=== PATIENT | female | born 1940 | race Caucasian/White ===

== ENCOUNTER → 2017-03-25 | Outpatient (CLI) | payer OTHER, BC ==
--- NOTE | 2017-03-25 13:06 | MAMMOGRAPHY REPORT ---
BILATERAL DIGITAL SCREENING MAMMOGRAM WITH CAD: 03/25/2017 CLINICAL HISTORY: Routine screening. TECHNIQUE: Current study was also evaluated with a Computer Aided Detection (CAD) system. Bilateral CC and MLO and left PICC CCL views were obtained. COMPARISON: Comparison is made to exams dated: 03/20/2016 mammogram, 03/19/2015 mammogram, 03/16/2014 m ammogram, 03/15/2013 mammogram, 03/08/2012 mammogram, and 03/05/2011 mammogram - [facility] nter. BREAST COMPOSITION: The tissue of both breasts is extremely dense, which lowers the sensitivity of m ammography. FINDINGS: No suspicious masses, calcifications, or areas of architectural distortion are noted in ei ther breast. There has been no significant interval change compared to prior exams. Scattered bilater al benign-appearing calcifications are not significantly changed. A biopsy marker clip is again not ed within the left superior breast. IMPRESSION: ACR BI-RADS CATEGORY 2: BENIGN There is no mammographic evidence of malignancy. A 1 year screening mammogram is recommended. The pa tient will receive written notification of the results. Approximately 10% of breast cancers are not detected with mammography. A negative mammographic report should not delay biopsy if a clinically suggestive mass is present. Shell Bell M.D. ah/:03/25/2017 12:04:30 Staff Writer: Alexis PACHECO(R)(M), [facility] letter sent: Normal 1/2 BI-RADS Code: ACR BI-RADS Category 2: Benign
== END | disposition home or self-care (01) ==
LOC: C.MAMM 11:25
PROVIDERS: ATTEND Internal Medicine
DX: Z12.31 Encounter for screening mammogram for malignant neoplasm of breast (principal)

== ENCOUNTER 2018-02-06 02:01 | Emergency (ER) | payer OTHER, BC ==
[~2018-02-06] VITALS: Ht 165.1 cm; Wt 47.9 kg
[2018-02-06 02:05] VITALS: TEMP 36.3; Ht 165.1 cm; Wt 47.9 kg
--- NOTE | 2018-02-06 03:08 | EMERGENCY ROOM VISIT NOTE ---
History Report prepared by Angelic: Zohreh Mesa Under the Supervision of: Dr. Liudmila Andrews D.O. First contact with patient: 02:27 Chief Complaint: FLANK PAIN Stated Complaint: PAIN ON LOWER LEFT SIDE History of Present Illness The patient is a 77 year old female who presents to the Emergency Room with complaints of constant left back pain beginning a couple days ago. The patient believes she has a kidney stone. She has a personal and family history of kidney stones. The patient's last kidney stone was 25 years ago. The patient's pain is better when she does not move. She denies any abdominal pain, nausea, or vomiting. She reports since arriving to the ED her pain as lessened. Source of History: patient Onset: a couple days ago Position: back Quality: other (pain) Timing: constant Associated Symptoms: + back pain, No nausea, No vomiting, No abdominal pain Review of Systems See HPI for pertinent positives & negatives. A total of 10 systems reviewed and were otherwise negative. Past Medical & Surgical Medical Problems: (1) Kidney stone (2) Parkinsons disease Family History Cancer Heart disease Kidney stone Social History Smoking Status: Never Smoker Smokeless Tobacco Use: No Alcohol Use: none Marital Status: Housing Status: lives with significant other Occupation Status: retired Allergies Uncoded Allergies: IVP DYE (Allergy, POSSIBLE ANXIETY, 11/30/13) Physical Exam Vital Signs Date Time Temp Pulse Resp B/P (MAP) Pulse Ox O2 Delivery O2 Flow Rate FiO2 02/06/18 05:19 77 14 167/74 97 Room Air 02/06/18 03:36 76 18 166/65 100 Room Air 02/06/18 02:05 36.3 119 20 151/64 100 Room Air Physical Exam HEENT: Head - normocephalic and atraumatic Pupils are equal, round, and reactive to light. Extraocular eye muscles are intact, and sclera are anicteric. Nose - moist nasal mucosa without discharge. Mouth - moist buccal mucosa. Oropharynx is nonerythematous and there is no tonsillar exudate or edema noted. Neck: Supple; no JVD, nuchal rigidity, cervical lymphadenopathy. Heart: Regular rate and rhythm. There is a normal S1 and S2 with no murmurs, clicks, or gallops appreciated. Lungs: Clear to auscultation bilaterally with no wheezes, rales, or rhonchi. Abdomen: Soft, completely nontender, nondistended, with good bowel sounds. There are no palpable pulsatile masses or hepatosplenomegaly. There is no guarding, rigidity, or rebound noted. Extremities: No evidence of cyanosis, clubbing, or edema. There are easily palpable peripheral pulses. Skin: warm and dry with good turgor and no rashes. Medical Decision & Procedures ER Provider Diagnostic Interpretation: Radiology results as stated below per my review and the radiologist's interpretation: CT ABDOMEN & PELVIS Without contrast: There is a 2 mm stone identified in the left ureterovesical junction causing mild left hydroureter and moderate left hydronephrosis. There are 5 additional stones identified in the left kidney measuring between 2 and 4 mm in size. Water density cyst in the inferior in the inferior left kidney is likely benign. There are approximate 4 nonobstructive stones in the right kidney measuring 2 mm mild right hydronephrosis without evidence of a distal ureteral stone. No bladder stones. Moderate stool in the colon suggests constipation. Ni bowel obstruction or bowel wall thickening. The appendix is not identified. There are scatttered tiny to small to characterize hypodensities in the right hepatic lobe which are nonspecific but presumably represent tiny cysts. Hypodense lesion measuring 7 mm the spleen is nonspecific. Recommend correlation previous studies. Findings either represents a postinfectious or posttraumatic cyst versus hemangioma. If there are risk factors, consider dedicated CT or MRI liver mass protocol study for better evaluation of this lesion in the spleen. Degenerative disc disease at L5-S1. Radiologist: Erica Anguiano MD. Laboratory Results 02/06/18 02:20 Red Blood Count 4.44, Mean Corpuscular Volume 91.0, Mean Corpuscular Hemoglobin 30.4, Mean Corpuscular Hemoglobin Concent 33.4, Mean Platelet Volume 9.9, Neutrophils (%) (Auto) 52.3, Lymphocytes (%) (Auto) 37.5, Monocytes (%) (Auto) 7.8, Eosinophils (%) (Auto) 1.9, Basophils (%) (Auto) 0.4, Neutrophils # (Auto) 3.83, Lymphocytes # (Auto) 2.75, Monocytes # (Auto) 0.57, Eosinophils # (Auto) 0.14, Basophils # (Auto) 0.03 02/06/18 02:20 Test 02/06/18 02:20 02/06/18 02:35 White Blood Count 7.33 K/uL (4.8-10.8) Red Blood Count 4.44 M/uL (4.2-5.4) Hemoglobin 13.5 g/dL (12.0-16.0) Hematocrit 40.4 % (37-47) Mean Corpuscular Volume 91.0 fL (80-100) Mean Corpuscular Hemoglobin 30.4 pg (25-34) Mean Corpuscular Hemoglobin Concent 33.4 g/dl (32-36) Platelet Count 262 K/uL (130-400) Mean Platelet Volume 9.9 fL (7.4-10.4) Neutrophils (%) (Auto) 52.3 % Lymphocytes (%) (Auto) 37.5 % Monocytes (%) (Auto) 7.8 % Eosinophils (%) (Auto) 1.9 % Basophils (%) (Auto) 0.4 % Neutrophils # (Auto) 3.83 K/uL (1.4-6.5) Lymphocytes # (Auto) 2.75 K/uL (1.2-3.4) Monocytes # (Auto) 0.57 K/uL (0.11-0.59) Eosinophils # (Auto) 0.14 K/uL (0-0.5) Basophils # (Auto) 0.03 K/uL (0-0.2) RDW Standard Deviation 43.8 fL (36.4-46.3) RDW Coefficient of Variation 13.1 % (11.5-14.5) Immature Granulocyte % (Auto) 0.1 % Immature Granulocyte # (Auto) 0.01 K/uL (0.00-0.02) Anion Gap 6.0 mmol/L (3-11) Est Creatinine Clear Calc Drug Dose 29.4 ml/min Estimated GFR () 49.3 Estimated GFR (Non- 42.6 BUN/Creatinine Ratio 26.4 (10-20) Calcium Level 8.9 mg/dl (8.5-10.1) Urine Color YELLOW Urine Appearance CLEAR (CLEAR) Urine pH 5.0 (4.5-7.5) Urine Specific [place] 1.012 (1.000-1.030) Urine Protein NEG (NEG) Urine Glucose (UA) NEG (NEG) Urine Ketones NEG (NEG) Urine Occult Blood 3+ (NEG) Urine Nitrite NEG (NEG) Urine Bilirubin NEG (NEG) Urine Urobilinogen NEG (NEG) Urine Leukocyte Esterase TRACE (NEG) Urine WBC (Auto) 1-5 /hpf (0-5) Urine RBC (Auto) 5-10 /hpf (0-4) Urine Hyaline Casts (Auto) 0 /lpf (0-5) Urine Epithelial Cells (Auto) 5-10 /lpf (0-5) Urine Bacteria (Auto) NEG (NEG) Laboratory results per my review. Medications Administered Medications (Trade) Dose Ordered Sig/Vijay Route Start Time Stop Time Status Last Admin Dose Admin Sodium Chloride 500 ml @ 999 mls/hr Q31M STAT IV 02/06/18 03:54 02/06/18 04:24 DC 02/06/18 04:16 999 MLS/HR Procedure NSS IV ED Course 0257: Past medical records reviewed. The patient was evaluated in room B3B. A complete history and physical exam was performed. A urine specimen was obtained and was positive for blood. An IV lock was initiated and labs are drawn as above. The patient went for CT to evaluate for a ureteral stone. Please see above report. 0354: Ordered Sodium Chloride 500 ml @ 999 mls/hr IV. 0406: I updated the patient on the test results. She is still comfortable. She declines wanting anything for pain. 0513: Upon reevaluation, the patient is resting comfortably. I discussed findings and results with her. She verbalized agreement of the treatment plan. The patient was discharged home. Medical Decision The patient is a 77 year old female who presents to the Emergency Room with complaints of constant left back pain beginning a couple days ago. Differential diagnosis includes pyelonephritis, shingles, ureteral colic, musculoskeletal pain. Lab results show: normal white count, normal H & H, BUN 33, creatinine 1.23, normal glucose, urinalysis had significant blood without signs of infection. This is a 77-year-old female patient with a personal history of kidney stones for many years ago. Over the past couple days, there is been significant discomfort in the left flank. Urinalysis was positive for blood. CT scan shows a 2 mm left UVJ stone with multiple other stones in both kidneys. There is some resultant left-sided hydronephrosis. There are multiple other incidental findings on the CT scan including a finding in the spleen as well as significant constipation. I reviewed these findings with the patient and her . I have encouraged to follow-up with her PCP with regards to these incidental findings. As for the kidney stones, the patient was encouraged to follow-up with Dr. Whaley who she is seen in the past. The patient was encouraged to return to the emergency department if she had intractable pain or developed a fever/vomiting. Medication Reconcilliation Current Medication List: was personally reviewed by me Blood Pressure Screening Patient's blood pressure: Elevated blood pressure Blood pressure disposition: Elevated BP felt to be situational Impression Primary Impression: Left ureteral stone Scribe Attestation The scribe's documentation has been prepared under my direction and personally reviewed by me in its entirety. I confirm that the note above accurately reflects all work, treatment, procedures, and medical decision making performed by me. Departure Information Dispostion Home / Self-Care Referrals Jose Colindres MD (PCP) Forms HOME CARE DOCUMENTATION FORM, IMPORTANT VISIT INFORMATION Patient Instructions [facility] Additional Instructions Rest. Take plenty of clear liquids You may want to take a stool softner to prevent constipation. Return to the ER for worsening symptoms Follow up with Urology about kidney stones.
[2018-02-06 03:13] LABS: BASO % 0.4 %; BASO ABS # 0.03 K/uL (0-0.2); EOS % 1.9 %; EOS ABS # 0.14 K/uL (0-0.5); HEMATOCRIT 40.4 % (37-47); HEMOGLOBIN 13.5 g/dL (12.0-16.0); IG# 0.01 K/uL (0.00-0.02); LYMPH % 37.5 %; LYMPH ABS # 2.75 K/uL (1.2-3.4); MEAN CORPUSCULAR HEMOGLOBIN 30.4 pg (25-34); MEAN CORPUSCULAR HGB CONC 33.4 g/dl (32-36); MEAN PLATELET VOLUME 9.9 fL (7.4-10.4); MONO % 7.8 %; MONO ABS # 0.57 K/uL (0.11-0.59); NEUT % 52.3 %; NEUT ABS # 3.83 K/uL (1.4-6.5); PLATELET COUNT 262 K/uL (130-400); RED CELL DISTRIBUTION WIDTH CV 13.1 % (11.5-14.5); RED CELL DISTRIBUTION WIDTH SD 43.8 fL (36.4-46.3); WHITE BLOOD COUNT 7.33 K/uL (4.8-10.8)
[2018-02-06 03:20] LABS: CALCIUM 8.9 mg/dl (8.5-10.1); CREATININE 1.23 mg/dl (0.60-1.20); POTASSIUM 3.8 mmol/L (3.5-5.1)
[2018-02-06] MEDS ORDERED: SODIUM CHLORIDE 0.9% 500ML 500 ML IV STA (03:54)
[2018-02-06 05:19] VITALS: BP 167/74; PULSE 77; O2SAT 97
--- NOTE | 2018-02-06 06:53 | DIAGNOSTIC IMAGING REPORT ---
ABD/PELVIS WITHOUT FOR STONE HISTORY: 77 years-old Female left flank pain acute left flank and left lower quadrant abdominal pain COMPARISON: None available TECHNIQUE: Multiple axial CT images of the abdomen and pelvis were obtained without the use of IV contrast. A dose lowering technique was used consistent with the principals of ORTIZ. FINDINGS: Mild subsegmental bibasilar atelectasis. Small left Bochdalek hernia. No pneumatosis or pneumoperitoneum. Imaged inferior cardiac chambers are mildly enlarged with trace pericardial effusion. Subcentimeter low attenuating lesions throughout the right hepatic lobe measure up to 5 mm, indeterminate on this noncontrast study however statistically favor benign etiology such as cysts or hemangiomas. No intrahepatic biliary ductal dilation. Gallbladder appears normal. Ill-defined low attenuating 8 mm lesion of the posterior mid spleen may reflect a hemangioma. Moderate to severe generalized pancreatic atrophy. Mild thickening of the left adrenal gland suggesting hyperplasia. The right adrenal gland is unremarkable. Low attenuating 1.8 cm lesion of the inferior pole left kidney suggests renal cyst with additional probable renal cysts also noted on the left. There are multiple nonobstructing bilateral nephrolithiasis measuring up to 4 mm within the inferior pole left kidney. There is moderate left-sided hydroureteronephrosis secondary to a 4 x 3 x 3 mm calculus of the left ureterovesicular junction seen on image 328 series 3. Mild prominence of the right renal pelvis and renal collecting system without obstructing calculus identified. Prior hysterectomy. Bladder is unremarkable. No adnexal mass lesions identified. Moderate calcification of the aorta without aneurysm. No bulky adenopathy identified. No bowel obstruction or focal bowel wall thickening identified. There is moderate volume of formed stool throughout the colon. The appendix is not definitively seen. No secondary signs to suggest acute appendicitis. Mild generalized body wall edema. No large volume ascites or significant mesenteric inflammatory changes. The bones appear least mildly demineralized. Severe multilevel facet arthrosis of the lower lumbar spine. IMPRESSION: 1. Moderate left-sided hydroureteronephrosis secondary to a 4 x 3 x 3 mm calculus of the left ureterovesicular junction. Multiple additional nonobstructing bilateral nephrolithiasis. 2. Mild prominence of the right renal pelvis and collecting system without flank hydronephrosis or obstructing right-sided calculus identified. 3. No bowel obstruction or focal bowel wall thickening. 4. Constipation. 5. Prior hysterectomy. 6. Additional findings as above. The above report was generated using voice recognition software. It may contain grammatical, syntax or spelling errors. Electronically signed by: Anil Westbrook M.D. 02/06/2018 6:52 AM Dictated Date/Time: 02/06/2018 6:41 AM
== END 2018-02-06 05:42 | disposition home or self-care (01) ==
LOC: C.EDB 02:03
DX: N13.2 Hydronephrosis with renal and ureteral calculous obstruction (principal); Z87.442 Personal history of urinary calculi; G20 Parkinson's disease; Z80.9 Family history of malignant neoplasm, unspecified; Z84.1 Family history of disorders of kidney and ureter; Z91.041 Radiographic dye allergy status

== ENCOUNTER 2021-03-06 19:52 | Inpatient (IN) ==
[2021-03-06 21:13] LABS: Basophils # (auto) 0.02 K/uL (0-0.2); Basophils % (auto) 0.2 %; Eosinophils # (auto) 0.22 K/uL (0-0.5); Eosinophils % (auto) 2.3 %; Hematocrit (blood only) 33.8 % (37-47); Immature Granulocytes # (auto) 0.03 K/uL (0.00-0.02); Immature Granulocytes % (auto) 0.3 %; Lymphocytes # (auto) 1.16 K/uL (1.2-3.4); Lymphocytes % (auto) 12.2 %; Mean Corpuscular Hemoglobin 30.5 pg (25-34); Mean Corpuscular Hgb Conc 32.5 g/dL (32-36); Mean Corpuscular Volume 93.6 fL (80-100); Mean Platelet Volume 9.4 fL (7.4-10.4); Monocytes # (auto) 0.93 K/uL (0.11-0.59); Monocytes % (auto) 9.8 %; Neutrophils # (auto) 7.15 K/uL (1.4-6.5); Neutrophils % (auto) 75.2 %; Platelet Count 273 K/uL (130-400); RDW Standard Deviation 48.3 fL (36.4-46.3); Red Blood Count 3.61 M/uL (4.2-5.4); White Blood Count 9.51 K/uL (4.8-10.8)
[2021-03-06 21:38] LABS: Alanine Aminotransferase < 6 U/L (12-78); Albumin Level 2.8 gm/dl (3.4-5.0); Aspartate Aminotransferase 18 U/L (15-37); BUN Creatinine Ratio 18.3 (10-20); Blood Urea Nitrogen 44 mg/dl (7-18); Calcium 9.2 mg/dl (8.5-10.1); Carbon Dioxide 23 mmol/L (21-32); Chloride 104 mmol/L (98-107); Est GFR (African American) 21.6 ml/min; Est GFR (Non-African American) 18.7 ml/min; Glucose 178 mg/dl (70-99); Lipase 75 U/L (73-393); Magnesium 2.4 mg/dl (1.8-2.4); Potassium 4.2 mmol/L (3.5-5.1); Sodium 135 mmol/L (136-145)
[2021-03-06 21:49] LABS: Albumin Globulin Ratio 0.7 (0.9-2); Alkaline Phosphatase 106 U/L (45-117); Bilirubin,Total 0.6 mg/dl (0.2-1); Globulin 4.2 gm/dl (2.5-4.0); Troponin I < 0.015 ng/ml (0-0.045)
[2021-03-06] MEDS ORDERED: SODIUM CHLORIDE 0.9% 1000ML 1,000 ML IV ONE (23:34)
[2021-03-06 23:36] LABS: Appearance Urine Clear (Clear); Bilirubin Urine Negative (Negative); Blood Urine 2+ (Negative); Color Urine Yellow; Glucose Urine UA Negative (Negative); Ketones Urine Negative (Negative); Leukocyte Esterase Urine Negative (Negative); Nitrite Urine Negative (Negative); Protein Urine Trace (Negative); Specific Gravity Urine <= 1.005 (1.000-1.030); Urobilinogen Urine Negative (Negative)
[2021-03-06 23:45] LABS: Epithelial Cell Urine 0-5 /lpf (0-5); RBC Urine 0-4 /hpf (0-4); WBC Urine 0-5 /hpf (0-5)
[2021-03-06 23:46] LABS: Bacteria Urine 1+ (Negative)
--- NOTE | 2021-03-07 00:31 | Emergency Department Note ---
Impression & Plan ART (acute kidney injury), Kidney stone on left side, Weakness, Falls frequently ED Provider Note Provider: Bandar Stanford MD DATE OF SERVICE: 03/06/2021 CHIEF COMPLAINT: Lab issues, weakness, falls HISTORY OF PRESENT ILLNESS: Patient is a 80-year-old female with a past medical history significant for Parkinson's disease with DBS placed several months ago presenting here with her today after issues over the last week or 2 with worsening weakness and some falls. Evidently had some outpatient blood work was referred here today due to concern for kidney function. Patient was seen by myself approximally a month ago after a fall and states she is been healing for this but has multiple small falls since that time. Patient denies the use of anticoagulants beyond aspirin. Patient states she is been working with her neurologist at [facility] regarding her DBS and optimization here. Given generalized weakness increasing in some slight confusion at times saw her primary doctor today and had outpatient blood work. Creatinine was some elevated at 2.29 and potassium was 5.2 when she was sent here. Patient states she has been weak but denies fever. Denies nausea or vomiting but having some lower abdominal and some lower back pain she reports. Patient denies pain down the legs. Patient denies respiratory symptoms. who present states she seems to be listing and trending a little bit towards her left side but the patient denies significant weakness or numbness in her extremities or face at this time. REVIEW OF SYSTEMS: A total of 10 review of systems was obtained and negative except as stated above in the HPI. PAST MEDICAL HISTORY: As noted above MEDICATIONS: Reviewed home medication list SOCIAL HISTORY: Lives at home with PHYSICAL EXAM: GENERAL: alert and oriented in no acute distress on stretcher fatigued in appearance Head: normocephalic without obvious swelling or discharge noted on the healed left scalp wound. EYES: No injection, discharge or icterus. PERRL NECK: Trachea midline. Supple. ENT: Mucous membranes pink and moist. LUNGS: Airway patent. No retractions. Breath sounds clear with good air entry bilaterally. HEART: Regular rate and rhythm. No chest wall tenderness ABDOMEN: Soft very slight lower abdominal discomfort but not peritoneal. No guarding. SKIN: Acyanotic, warm, dry, without rashes EXTREMITIES: Without swelling, tenderness or deformity NEUROLOGICAL: No focal deficits moving all extremities. No aphasia. No facial droop or slurred speech. EK bpm normal sinus rhythm. No PVC or PAC. No acute ST segment elevation or depression. QTC 448. CONTINUOUS CARDIAC MONITORING: was ordered and showed a heart rate of 60s to 80s bpm in normal sinus rhythm GCS 15. Patient's laboratory studies and imaging reviewed. Differential includes Infection, dehydration, metabolic abnormality, hypo/ hyperglycemia, electrolyte disturbance, anemia, hypoxia, cardiac sources, intracerebral event, toxicologic, neurologic, traumatic, as well as other pathologies. IMPRESSION/MEDICAL DECISION MAKING: Patient with generalized weakness multiple falls and some lower abdominal and back discomfort. No fevers reported. Afebrile here. Distended leukocytosis urine without evidence of infection on a cath sample. CT scan did not show any acute intracranial abnormality per stat read as below with implanted DBS. Not having significant focal deficits at this point indicative of stroke. Patient's blood work does show a creatinine of 2.39 not far off previous in August of this year to however compare to [facility] medical record labs from December of this year baseline creatinine is 1.3. Kidney stone 5 mm noted on the abdominal skin but no other traumatic injuries noted here on the L-spine. Question of some dehydration component and the stone is causing some ART. Believe she requires emergent intervention at this time overnight but will provide fluid hydration. Leave needs further care here at the hospital given her weakness, falls, the kidney stone and ART and she and her were in agreement. The hospitalist was contacted. Hospitalist aware if worsening renal function urgent urology consultation may be needed. Covid negative. Patient does not appear septic at this time. IV fluids given. DIAGNOSIS: ART, left kidney stone, weakness, falls DISPOSITION: Hospitalist will evaluate Patient was agreeable with this plan. Preliminary Findings Only See Final Report For Complete Findings CT HEAD: No intracranial hemorrhage, mass-effect, or edema. Bilateral deep brain stimulators in place. Paranasal sinuses and mastoid air cells are clear. No fracture. Radiologist: Ruddy Martinez MD Study ready at 22:54 and initial results transmitted at 23:02 Preliminary Findings Only See Final Report For Complete Findings CT ABDOMEN & PELVIS Without Contrast: Stone in the distal left ureter measuring 5 mm. Moderate to severe upstream hydronephrosis. No traumatic injury. Radiologist: Ruddy Martinez MD Study ready at 21:57 and initial results transmitted at 22:30 Preliminary Findings Only See Final Report For Complete Findings CT L SPINE: No fracture or malalignment. Radiologist: Ruddy Martinez MD Study ready at 21:57 and initial results transmitted at 22:31 Past Med/Surg History Social History Smoking Status: Never smoker Preferred Language: Lebanese Feels Safe at Home: Yes Allergies Allergies Allergy/AdvReac Type Severity Reaction Status Date / Time Iodinated Contrast Media AdvReac Severe Anxiety Unverified 03/06/21 21:18 Home Meds Home Medications Medication Instructions Recorded Confirmed amantadine HCl 100 mg PO BID 09/04/20 03/06/21 aspirin 81 mg PO DAILY 09/04/20 03/06/21 biotin 5 mg PO DAILY 09/04/20 03/06/21 carbidopa-levodopa [Rytary] See Rx Instructions .ROUTE .COMPLEX 09/04/20 ketoconazole 1 applic TOPICAL UD 09/04/20 03/06/21 [id number] carb-vit K 1 tab PO DAILY 09/04/20 03/06/21 [Women's Multivitamin] simvastatin 20 mg PO HS 09/04/20 03/06/21 cyclosporine [Restasis] 1 drp OPB BID 01/23/21 03/06/21 furosemide 20 mg PO 3XWK 01/23/21 03/06/21 gabapentin 400 mg PO HS 02/18/21 03/06/21 amoxicillin 2,000 mg PO ONCE PRN 03/06/21 03/06/21 lidocaine 1 patch TOPICAL DAILY PRN 03/06/21 03/06/21 Previous Rx's Medication Instructions Recorded tramadol 50 mg PO Q6H PRN #14 tab 01/23/21 Results & Data (ED) Vital Signs Vital Signs - 24 hr 03/06/21 19:56 03/06/21 20:34 03/06/21 20:35 Temperature 36.3 C L Temperature Source Temporal Artery Scan Pulse Rate 74 71 Pulse Rhythm Regular Pulse Strength Normal Respiratory Rate 20 19 Respiratory Effort / Characteristics Non-Labored Spontaneous Respiratory Depth Normal Respiratory Pattern Regular Blood Pressure 129/60 148/56 H Blood Pressure Mean 83 86 Blood Pressure Position Sitting Pulse Oximetry 97 94 Oxygen Delivery Method Room Air Room Air Sepsis Recent Fever Within 48 Hours No Sepsis New/Unexplained Change in Mental Status No Sepsis Action Taken by Nursing No Action Required 03/06/21 21:00 03/06/21 21:03 03/06/21 22:01 Temperature Temperature Source Pulse Rate 72 71 70 Pulse Rhythm Pulse Strength Respiratory Rate 23 17 16 Respiratory Effort / Characteristics Respiratory Depth Respiratory Pattern Blood Pressure 174/76 H 92/78 L Blood Pressure Mean 108 82 Blood Pressure Position Pulse Oximetry Oxygen Delivery Method Sepsis Recent Fever Within 48 Hours Sepsis New/Unexplained Change in Mental Status Sepsis Action Taken by Nursing 03/06/21 22:30 03/06/21 23:00 Temperature Temperature Source Pulse Rate 72 72 Pulse Rhythm Pulse Strength Respiratory Rate 17 19 Respiratory Effort / Characteristics Respiratory Depth Respiratory Pattern Blood Pressure 132/69 117/50 L Blood Pressure Mean 90 72 Blood Pressure Position Pulse Oximetry Oxygen Delivery Method Sepsis Recent Fever Within 48 Hours Sepsis New/Unexplained Change in Mental Status Sepsis Action Taken by Nursing Laboratory Data Result diagrams: 03/06/21 21:00 03/06/21 21:00 Lab Results 03/06/21 03/06/21 03/06/21 Range/Units 21:00 21:00 21:00 WBC 9.51 (4.8-10.8) K/uL RBC 3.61 L (4.2-5.4) M/uL Hgb 11.0 L (12.0-16.0) g/dL Hct 33.8 L (37-47) % MCV 93.6 (80-100) fL MCH 30.5 (25-34) pg MCHC 32.5 (32-36) g/dL RDW Std Deviation 48.3 H (36.4-46.3) fL RDW Coeff of Ara 14.0 (11.5-14.5) % Plt Count 273 (130-400) K/uL MPV 9.4 (7.4-10.4) fL Immature Gran % (Auto) 0.3 % Neut % (Auto) 75.2 % Lymph % (Auto) 12.2 % [place] % (Auto) 9.8 % Eos % (Auto) 2.3 % Baso % (Auto) 0.2 % Neut # (Auto) 7.15 H (1.4-6.5) K/uL Lymph # (Auto) 1.16 L (1.2-3.4) K/uL [place] # (Auto) 0.93 H (0.11-0.59) K/uL Eos # (Auto) 0.22 (0-0.5) K/uL Baso # (Auto) 0.02 (0-0.2) K/uL Immature Gran # (Auto) 0.03 H (0.00-0.02) K/uL Sodium 135 L (136-145) mmol/L Potassium 4.2 (3.5-5.1) mmol/L Chloride 104 (98-107) mmol/L Carbon Dioxide 23 (21-32) mmol/L Anion Gap 8.0 (3-11) BUN 44 H (7-18) mg/dl Creatinine 2.39 H (0.6-1.2) mg/dl Est Cr Clr Drug Dosing Not Reportable Est GFR ( Amer) 21.6 ml/min Est GFR (Non-Af Amer) 18.7 ml/min BUN/Creatinine Ratio 18.3 (10-20) Glucose 178 H (70-99) mg/dl Calcium 9.2 (8.5-10.1) mg/dl Magnesium 2.4 (1.8-2.4) mg/dl Total Bilirubin 0.6 (0.2-1) mg/dl AST 18 (15-37) U/L ALT < 6 L (12-78) U/L Alkaline Phosphatase 106 (45-117) U/L Troponin I < 0.015 (0-0.045) ng/ml Total Protein 7.0 (6.4-8.2) gm/dl Albumin 2.8 L (3.4-5.0) gm/dl Globulin 4.2 H (2.5-4.0) gm/dl Albumin/Globulin Ratio 0.7 L (0.9-2) Lipase 75 (73-393) U/L TSH 1.080 (0.300-4.500) uIu/ml Urine Color Urine Appearance (Clear) Urine pH (4.5-7.5) Ur Specific [place] (1.000-1.030) Urine Protein (Negative) Urine Glucose (UA) (Negative) Urine Ketones (Negative) Urine Blood (Negative) Urine Nitrite (Negative) Urine Bilirubin (Negative) Urine Urobilinogen (Negative) Ur Leukocyte Esterase (Negative) Urine RBC (0-4) /hpf Urine WBC (0-5) /hpf Ur Epithelial Cells (0-5) /lpf Urine Bacteria (Negative) COVID-19 Eval Order Covid19 at [facility] SARS-CoV-2 (PCR) (Negative) 03/06/21 03/06/21 Range/Units 21:00 23:10 WBC (4.8-10.8) K/uL RBC (4.2-5.4) M/uL Hgb (12.0-16.0) g/dL Hct (37-47) % MCV (80-100) fL MCH (25-34) pg MCHC (32-36) g/dL RDW Std Deviation (36.4-46.3) fL RDW Coeff of Ara (11.5-14.5) % Plt Count (130-400) K/uL MPV (7.4-10.4) fL Immature Gran % (Auto) % Neut % (Auto) % Lymph % (Auto) % [place] % (Auto) % Eos % (Auto) % Baso % (Auto) % Neut # (Auto) (1.4-6.5) K/uL Lymph # (Auto) (1.2-3.4) K/uL [place] # (Auto) (0.11-0.59) K/uL Eos # (Auto) (0-0.5) K/uL Baso # (Auto) (0-0.2) K/uL Immature Gran # (Auto) (0.00-0.02) K/uL Sodium (136-145) mmol/L Potassium (3.5-5.1) mmol/L Chloride (98-107) mmol/L Carbon Dioxide (21-32) mmol/L Anion Gap (3-11) BUN (7-18) mg/dl Creatinine (0.6-1.2) mg/dl Est Cr Clr Drug Dosing Est GFR ( Amer) ml/min Est GFR (Non-Af Amer) ml/min BUN/Creatinine Ratio (10-20) Glucose (70-99) mg/dl Calcium (8.5-10.1) mg/dl Magnesium (1.8-2.4) mg/dl Total Bilirubin (0.2-1) mg/dl AST (15-37) U/L ALT (12-78) U/L Alkaline Phosphatase (45-117) U/L Troponin I (0-0.045) ng/ml Total Protein (6.4-8.2) gm/dl Albumin (3.4-5.0) gm/dl Globulin (2.5-4.0) gm/dl Albumin/Globulin Ratio (0.9-2) Lipase (73-393) U/L TSH (0.300-4.500) uIu/ml Urine Color Yellow Urine Appearance Clear (Clear) Urine pH 5.0 (4.5-7.5) Ur Specific [place] <= 1.005 (1.000-1.030) Urine Protein Trace H (Negative) Urine Glucose (UA) Negative (Negative) Urine Ketones Negative (Negative) Urine Blood 2+ H (Negative) Urine Nitrite Negative (Negative) Urine Bilirubin Negative (Negative) Urine Urobilinogen Negative (Negative) Ur Leukocyte Esterase Negative (Negative) Urine RBC 0-4 (0-4) /hpf Urine WBC 0-5 (0-5) /hpf Ur Epithelial Cells 0-5 (0-5) /lpf Urine Bacteria 1+ H (Negative) COVID-19 Eval Order SARS-CoV-2 (PCR) NEGATIVE (Negative) Administered Medications Sodium Chloride (Nss 1000ml) 1,000 mls @ 999 mls/hr IV .Q1H1M ONE Stop: 03/07/21 00:34 Last Admin: 03/06/21 23:45 Dose: 999 mls/hr Documented by: [id number] Discharge Plan Visit Data Chief Complaint: Abnormal Labs/Diagnostic Testing Stated Complaint: LOSS OF KIDNEY & LIVER FUNCTION-DOC REF ED Provider: Bandar Stanford Discharge Problem: ART (acute kidney injury), Kidney stone on left side, Weakness, Falls frequently Patient Disposition: Being Evaluated by Hospitalist Forms Stand Alone Forms: My [facility] Prescriptions Prescriptions: No Action ketoconazole 2 % shampoo 1 applic TOPICAL UD RF: 0 amantadine HCl 100 mg capsule 100 mg PO BID RF: 0 simvastatin 20 mg tablet 20 mg PO HS RF: 0 aspirin 81 mg Tablet,Chewable 81 mg PO DAILY RF: 0 biotin 5 mg Tablet 5 mg PO DAILY RF: 0 Women's Multivitamin 18 mg iron-400 mcg-500 mg Tablet 1 tab PO DAILY RF: 0 Rytary 48.75-195 mg capsule, extended release See Rx Instructions .ROUTE .COMPLEX RF: 0 gabapentin 400 mg capsule 400 mg PO HS RF: 0 amoxicillin 500 mg capsule 2,000 mg PO ONCE PRN (Reason: moring of dental procedure) RF: 0 lidocaine 4 % adhesive patch,medicated 1 patch topical DAILY PRN (Reason: Pain) RF: 0 furosemide 20 mg tablet 20 mg PO 3XWK RF: 0 Restasis 0.05 % dropperette 1 drp OPB BID RF: 0 tramadol 50 mg tablet 50 mg PO Q6H PRN (Reason: pain) Qty: 14 RF: 0 Referrals Referrals: Jose Colindres MD [Primary Care Provider] -
--- NOTE | 2021-03-07 01:56 | History and Physical Report ---
DATE OF ADMISSION: 03/07/2021 CHIEF COMPLAINT: Weakness, fall. HISTORY OF PRESENT ILLNESS: This is a 80-year-old female with past medical history significant for Parkinson's disease, status post deep brain stimulator in December 2020, history of nonrheumatic gjqoismq-ue-beqoip aortic valve insufficiency, moderate mitral and tricuspid regurgitation, chronic diastolic heart failure, history of orthostatic hypotension, pulmonary hypertension, Raynaud's disease, hyperlipidemia, liver lesions, chronic kidney disease stage IIIA, restless legs syndrome, sicca syndrome, history of kidney stones, who lives with her . Comes because of frequent falls and weakness at home. The patient went to PCP office. Outpatient labs showed creatinine of 2.1, baseline is 1.1. She was advised to come to the hospital. Currently resting comfortably and hemodynamically stable. The patient says lately she is feeling weakness and falling frequently at home. Uses walker at home. Denies any fever, chills, no headache, no blurred visions, no earache, no runny nose, no sore throat, no cough, no dysphagia. Appetite is okay, but she does not eat much. No chest pain, no shortness of breath, no nausea, no abdominal pain, no diarrhea, somewhat constipated. Denies any blood in the stools. Normal bladder movements. She says she has chronic microscopic hematuria. Denies any burning micturition, no swelling in the legs, no rash. Hemodynamically stable. ALLERGIES: IODINATED DIAGNOSTIC AGENTS, SULFA ANTIBIOTICS. PAST MEDICAL HISTORY: As mentioned. PAST SURGICAL HISTORY: Cardiac catheterization, colonoscopy, colonoscopy with biopsy, elbow surgery, laparoscopic lysis of adhesions, partial hysterectomy, cataract surgery. MEDICATIONS: The patient is on amantadine 100 mg p.o. b.i.d., amoxicillin 2 grams p.r.n., aspirin 81 mg p.o. daily, biotin 5 mg p.o. daily, carbidopa/levodopa 48.75/125 mg capsules two in the morning, one in the afternoon, once at night, cyclosporine 1 drop ophthalmic b.i.d., furosemide 20 mg p.o. 3 times a week, gabapentin 400 mg p.o. at bedtime, ketaconazole topical p.r.n., lidocaine 1 patch topically daily p.r.n., multivitamins 1 tablet p.o. daily, simvastatin 20 mg p.o. at bedtime, tramadol 50 mg p.o. q. 6 hours p.r.n. FAMILY HISTORY: Significant for mother has rheumatoid arthritis, GA; father had GA; brother has GA; brother has melanoma; sister has melanoma. SOCIAL HISTORY: . No smoking. Alcohol rarely. No drug use. REVIEW OF SYSTEMS: As per HPI. Rest of the review of systems is negative. PHYSICAL EXAMINATION: GENERAL: The patient is old and frail, not in acute distress. VITAL SIGNS: Temperature 36.3, pulse 73, respiratory rate 16, blood pressure 184/76, and oxygen 94% on room air. HEENT: Pupils equal, round, reactive to light. Oral mucosa dry. NECK: No JVD. No neck masses. CARDIOVASCULAR: S1, S2 heard, regular rate and rhythm, no murmur, no gallop. RESPIRATORY SYSTEM: Normal AP diameter. No accessory muscle use. No wheezing, no crackles. ABDOMEN: Soft, bowel sounds present, nontender. No distention. CENTRAL NERVOUS SYSTEM: Cranial nerves II-XII grossly intact, nonfocal. EXTREMITIES: No edema, no erythema. LABORATORY DATA: WBC 9.5, hemoglobin 11, hematocrit 33.8, platelets 273. Sodium 135, potassium 4.2, chloride 104, bicarbonate 23, BUN 44, creatinine 2.3, serum glucose 178, calcium 9.2, magnesium 2.4, total bilirubin 0.6, AST 18, ALT less than 6, alkaline phosphatase 106. Troponin I less than 0.015. Lipase 75. TSH 1.08. Urinalysis, urine bacteria +1. SARS-CoV-2 PCR negative. IMAGING DATA: Lumbar spine CT, preliminary report, no acute findings. Head CT, preliminary report, no acute findings. Bilateral deep brain stimulators in place. Chest x-ray, no acute findings. CT of the abdomen and pelvis, preliminary report is showing stone in the distal left ureter measuring 5 mm with [id number] upstream hydronephrosis. EKG: Normal sinus rhythm at a rate of 72. No significant change was found. ASSESSMENT AND PLAN: This 80-year-old female presents with ongoing weakness, falls. 1. Ongoing weakness and falls, possibly urinary tract infection: Will place her on Rocephin, gentle fluids. PT and OT. Social service to help with discharge planning. 2. Kidney stone: Left distal ureter stone, 5 mm, with hydronephrosis. This patient has history of kidney stones. Placed on gentle fluids, n.p.o., antibiotics. Urology consult in a.m. for further recommendations. 3. Acute kidney injury on chronic kidney disease stage IIIA: Baseline creatinine of 1.2, presently with creatinine of 2.3. Holding Lasix. Avoid nephrotoxic agents. Getting fluids. Will monitor the labs in the a.m. 4. History of Parkinson syndrome: Deep brain stimulator. On Sinemet and amantadine. PT and OT when stable. 5. History of chronic diastolic congestive heart failure. History of nonrheumatic faujewmr-eu-otgkoq aortic valve insufficiency and moderate mitral and tricuspid regurgitation, on Lasix 20 mg 3 times a week. Also the patient could not higer doses of diuretics because of orthostatic hypotension. But currently the patient is in ART, holding the diuretics and getting gentle fluids. Monitor for any volume overload. 6. Hyperlipidemia: On statin. 7. Restless legs syndrome: On gabapentin. 8. Deep venous thrombosis prophylaxis: Heparin subQ. DISPOSITION: Closely monitor in the med tele. PT and OT prior to discharge. Social service to help with discharge planning. Level 1 full code only if there is a chance of recovery as per my discussion with the patient. MTDD
[2021-03-07] MEDS ORDERED: ACETAMINOPHEN 325 MG TAB PO PRN (02:43)
[2021-03-07] MEDS ORDERED: POLYETHYLENE (MIRALAX) 17 GM PACK PO PRN (02:43)
[2021-03-07] MEDS ORDERED: traMADol HCL 50 MG TABLET PO PRN (02:43)
[2021-03-07] MEDS ORDERED: ONDANSETRON INJ 2 MG/ML 2 ML VIAL IV PRN ×2 (02:43→15:32)
[2021-03-07] MEDS ORDERED: NITROGLYCERIN SL 0.4 MG/TAB TAB SL PRN (02:43)
[2021-03-07] MEDS ORDERED: LIDOCAINE 5% 1 PATCH TD PRN (02:57)
[2021-03-07] MEDS: SODIUM CHLORIDE 0.9% 1000ML 1,000 ML IV SCH ×2 (03:06→17:41)
[2021-03-07] MEDS: cefTRIAXone SODIUM 1,000 MG in DEXTROSE 5% 50 ML IV SCH (03:28)
--- NOTE | 2021-03-07 05:50 | Urology Consultation ---
Date of Consultation March 07, 2021 Assessment & Plan (1) Kidney stone on left side: The patient has been admitted to the hospital service. We will proceed as follows: Provide analgesics Provide antiemetics Hydrate the patient with IV fluids as she has acute kidney injury. Nephrotoxins should also be avoided. Consider adding Flomax for expulsive therapy The patient has been initiated on antibiotics in the form of Rocephin. Urine culture has been sent and is pending. Antibiotics can be adjusted based on culture results Patient is noted to have a 5 mm kidney stone. We will continue the above therapy to see if patient passes a kidney stone on her own. Currently she is pain-free. Due to her acute kidney injury she may require cystoscopic intervention. Remainder of plan as directed by the primary service History of Present Illness Reason for Consultation: Nephrolithiasis Attending Physician: Germán Doty MD History of Present Illness Is a 80-year-old female who was advised to come to the hospital by patient's PCP. Reportedly the patient was having frequent falls and she had some routine blood work checked by her primary care physician's office where she was shown to have a creatinine of 2.1. This was above her baseline levels of 1.1 she was advised to come to the emergency department. Patient reports some generalized weakness. Is not had any fevers, shakes, chills. She denies any dysuria. Does note that she is having some back pain on the left side. She denies any radiation of the pain or any modifying factors. She denies any nausea or vomiting. Patient says that she has had kidney stones in the past but has always been able to pass them successfully on her own. Since admission the patient has had imaging and labs which were independently reviewed.A CBC revealed her white blood cell count was normal at 9.5 hemoglobin and hematocrit 11.0 and 33.8 respectively. Her platelet count was within the normal range. Mr. Profile showed sodium was 135. Potassium was within the normal range. Her BUN and creatinine were elevated at 44 and 2.39. Urinalysis showed 2+ blood, negative for nitrite, negative for leukocyte Estrace, negative for pyuria. A Covid test was performed and was negative. Patient did have a CT scan of the abdomen and pelvis that showed a 5 mm kidney stone in the left ureter resulting in moderate hydronephrosis At the time of my interview the patient was resting comfortably in bed. She said her pain was mostly resolved and she was in no distress. Allergies Allergy/AdvReac Type Severity Reaction Status Date / Time Iodinated Contrast Media AdvReac Severe Anxiety Unverified 03/06/21 21:18 Home Medications Medication Instructions Recorded Confirmed Type amantadine HCl 100 mg PO BID 09/04/20 03/06/21 History aspirin 81 mg PO DAILY 09/04/20 03/06/21 History biotin 5 mg PO DAILY 09/04/20 03/06/21 History carbidopa-levodopa [Rytary] See Rx Instructions .ROUTE .COMPLEX 09/04/20 03/06/21 History ketoconazole 1 applic TOPICAL UD 09/04/20 03/06/21 History qo-pd-oese-FA-Ca carb-vit K 1 tab PO DAILY 09/04/20 03/06/21 History [Women's Multivitamin] simvastatin 20 mg PO HS 09/04/20 03/06/21 History cyclosporine [Restasis] 1 drp OPB BID 01/23/21 03/06/21 History furosemide 20 mg PO 3XWK 01/23/21 03/06/21 History tramadol 50 mg PO Q6H PRN #14 tab 01/23/21 03/06/21 Rx gabapentin 400 mg PO HS 02/18/21 03/06/21 History amoxicillin 2,000 mg PO ONCE PRN 03/06/21 03/06/21 History lidocaine 1 patch TOPICAL DAILY PRN 03/06/21 03/06/21 History Patient History Social History Smoking Status: Never smoker Hx Alcohol Use: No Hx Substance Use: No Preferred Language: Georgian Communication Ability: Effective Hide Tanner Required: No Beliefs That Will Affect Care: None Current Living Situation: Spouse Other Information That Helps Us Care for You: No Feels Safe at Home: Yes Safety Concerns: Feels Safe At This Time Assistive Devices: Glasses and Walker Assistive Devices Comment: Glasses used for reading. Review of Systems Constitutional: + weakness; no fever and no chills Eyes: no diplopia Ear, Nose, Mouth, Throat: no ear pain Respiratory: no cough and no dyspnea Cardiovascular: no chest pain Gastrointestinal: no abdominal pain, no nausea and no vomiting Genitourinary: no dysuria and no hematuria Musculoskeletal: + back pain Integumentary: no rash Neurologic: + generalized weakness Physical Exam Constitutional: no acute distress Eyes: no conjunctival abnormality ENMT: Ears: no hearing impairment Neck: trachea midline Respiratory: normal respiratory effort, lungs clear to auscultation Cardiovascular: Rate/Rhythm: regular rate and regular rhythm Gastrointestinal (Abdomen): Percussion/Palpation: abdomen soft; abdomen nontender Musculoskeletal: No calf tenderness Skin: no rashes, warm and dry Neurologic: moves all extremities Psychiatric: A+Ox3, euthymic affect Genitourinary: + CVA tenderness (Mild CVA tenderness on the left side with percussion.) Results & Data ([facility]) Vital Signs (Past 12 Hours) Vital Signs Temp Pulse Pulse Resp BP BP Pulse Ox 03/07/21 02:10 36.5 C 79 20 119/72 94 03/07/21 01:30 73 20 149/80 H 03/07/21 00:31 73 16 184/76 H 03/07/21 00:01 71 17 167/55 H 03/06/21 23:00 72 19 117/50 L 03/06/21 22:30 72 17 132/69 03/06/21 22:01 70 16 92/78 L 03/06/21 21:03 71 17 174/76 H 03/06/21 21:00 72 23 03/06/21 20:35 94 03/06/21 20:34 71 19 148/56 H 03/06/21 19:56 36.3 C L 74 20 129/60 97 Pulse Ox 03/07/21 02:10 94 03/07/21 01:30 03/07/21 00:31 03/07/21 00:01 03/06/21 23:00 03/06/21 22:30 03/06/21 22:01 03/06/21 21:03 03/06/21 21:00 03/06/21 20:35 03/06/21 20:34 03/06/21 19:56 PG Care Time/CCT Total # of Minutes Spent Total Time Spent with Patient: Total time spent is greater than 50% in coordination of care (as documented) at patient's floor/unit and/or counseling patient: Coding Level of Care Code 99783 Inpt Consult Level 5 Diagnoses Kidney stone on left side N20.0
[2021-03-07 06:39] LABS: Basophils # (auto) 0.01 K/uL (0-0.2); Basophils % (auto) 0.1 %; Eosinophils # (auto) 0.23 K/uL (0-0.5); Eosinophils % (auto) 2.5 %; Hematocrit (blood only) 34.3 % (37-47); Immature Granulocytes # (auto) 0.02 K/uL (0.00-0.02); Immature Granulocytes % (auto) 0.2 %; Lymphocytes # (auto) 1.05 K/uL (1.2-3.4); Lymphocytes % (auto) 11.6 %; Mean Corpuscular Hemoglobin 30.3 pg (25-34); Mean Corpuscular Hgb Conc 32.1 g/dL (32-36); Mean Corpuscular Volume 94.5 fL (80-100); Mean Platelet Volume 9.5 fL (7.4-10.4); Monocytes # (auto) 0.97 K/uL (0.11-0.59); Monocytes % (auto) 10.7 %; Neutrophils % (auto) 74.9 %; Platelet Count 300 K/uL (130-400); RDW Coefficient of Variation 14.1 % (11.5-14.5); RDW Standard Deviation 48.6 fL (36.4-46.3); Red Blood Count 3.63 M/uL (4.2-5.4); White Blood Count 9.08 K/uL (4.8-10.8)
--- NOTE | 2021-03-07 07:06 | CT Scan Report ---
HEAD CT NONCONTRAST CT DOSE: 1277.12 mGycm HISTORY: weakness TECHNIQUE: Multiaxial CT images of the head were performed without the use of intravenous contrast. A utomated exposure control was utilized for this study. A dose lowering technique was utilized adheri ng to the principles of ALARA. Comparison: Head CT 02/18/2021. Findings: The paranasal sinuses and mastoid air cells are clear. The calvarium and skull base are int act. There is no mass, hematoma, midline shift, acute infarct. White matter hypodensity is nonspecifi c but suggestive of microvascular ischemic change. The ventricles and sulci demonstrate mild age-rela kenia involutional changes. Deep neurostimulator devices are again noted. Impression: No significant change compared to the prior study. No acute intracranial abnormality. ACT 112: Negative or not required by law. Electronically signed by: Shankar Hood M.D. 03/07/2021 7:05 AM
[2021-03-07 07:16] LABS: BUN Creatinine Ratio 17.2 (10-20); Calcium 8.5 mg/dl (8.5-10.1); Creatinine Clr Calc Pharmacy 16.8 ml/min; Est GFR (African American) 25.3 ml/min; Est GFR (Non-African American) 21.8 ml/min; Magnesium 2.4 mg/dl (1.8-2.4); Potassium 4.2 mmol/L (3.5-5.1)
--- NOTE | 2021-03-07 07:51 | CT Scan Report ---
CT OF THE ABDOMEN AND PELVIS WITHOUT CONTRAST CLINICAL HISTORY: Fall. Lower abdominal pain. COMPARISON STUDY: CT of the abdomen and pelvis September 04, 2020. TECHNIQUE: Axial images of the abdomen and pelvis were obtained without IV contrast. Images were revi ewed in the axial, sagittal, and coronal planes. Automated exposure control was utilized for the tess dy. A dose lowering technique was utilized adhering to the principles of ALARA. FINDINGS: Left lower lobe opacity favors atelectasis. A 5 mm distal left ureteral calculus results in moderate to severe left hydroureteronephrosis. Infiltration within the left renal sinus is noted. Sm all bilateral renal calculi are present. There are no right ureteral calculi. There is no right hydro nephrosis. A water attenuation lesion within lower pole of the left kidney is suboptimally assessed o n this unenhanced exam but favors a cyst. Unenhanced images of liver, spleen, adrenal glands and panc reas are unremarkable. There is no biliary or pancreatic ductal dilatation. There is no lymphadenopat hy. There is no evidence for a bowel obstruction. No acute fracture or suspicious lesion is identifie d within the visualized skeletal structures. There is a moderate amount of stool within the colon. IMPRESSION: 1. 5 mm distal left ureteral calculus results in moderate to severe left hydroureteronephrosis. 2. Bilateral nephrolithiasis. 3. No acute traumatic findings within the abdomen or pelvis on unenhanced exam. ACT 112: Negative or not required by law. Electronically signed by: Jack Maloney M.D. 03/07/2021 7:49 AM
--- NOTE | 2021-03-07 07:52 | CT Scan Report ---
CT OF THE LUMBAR SPINE CLINICAL HISTORY: falls, back pain COMPARISON STUDY: Lumbar spine CT January 23, 2021. TECHNIQUE: Helical axial images of the lumbar spine were obtained. Sagittal and coronal reconstruct ions were viewed. Automated exposure control was utilized for the study. A dose lowering technique was utilized adhering to the principles of ALARA. FINDINGS: Please note that the CT of the abdomen and pelvis will be reported separately. A 5 mm dista l left ureteral calculus with moderate to severe left hydronephrosis and bilateral nephrolithiasis ar e better depicted on that exam. The sacroiliac joints are intact. There is no acute fracture within t he lumbar spine. Facet joints are intact. Moderate multilevel facet arthrosis is noted. There is mode rate disc space narrowing with osteophytosis at L5-S1. The central canal and neural foramen are subop timally assessed by CT. IMPRESSION: No acute lumbar spine fracture or subluxation. ACT 112: Negative or not required by law. Electronically signed by: Jack Maloney M.D. 03/07/2021 7:51 AM
--- NOTE | 2021-03-07 07:54 | XRay Report ---
XR chest 1V portable CLINICAL HISTORY: weakness COMPARISON STUDY: No previous studies for comparison. FINDINGS: There is no pneumothorax. Trace left pleural effusion is noted. Minimal left basilar opacit y favors atelectasis. Cardiac size is normal. There is no consolidation to suggest pneumonia. Stimula tor device projects over the left hemithorax with leads. IMPRESSION: Trace left pleural effusion with left basilar opacity that favors atelectasis. ACT 112: Negative or not required by law. Electronically signed by: Jack Maloney M.D. 03/07/2021 7:53 AM
[2021-03-07] MEDS: *RESTASIS*ORDER AWAITING ACTION SCH ×2 (08:24→15:17)
[2021-03-07] MEDS: CARBIDOPA/LEVODOPA 25/100MG TAB PO SCH ×4 (08:28→23:41)
[2021-03-07] MEDS ORDERED: NON-FORMULARY MEDICATION (Biotin 5 mg Tablet) PO SCH (09:00)
[2021-03-07] MEDS ORDERED: AMANTADINE HCL 100 MG CAPSULE PO SCH ×2 (09:00)
[2021-03-07] MEDS: MULTIVITAMIN TAB PO SCH (11:05)
[2021-03-07] MEDS: TAMSULOSIN HCL 0.4 MG CAP PO SCH (12:16)
--- NOTE | 2021-03-07 12:31 | Hospitalist Progress Note ---
Date of Service March 07, 2021 Assessment & Plan (1) Weakness: (2) ART (acute kidney injury): (3) Kidney stone on left side: ART on CKD 3 Likely related to ureteral stone Creatinine is 2.1 this morning. Was 2.39 on admission. Continue IV fluids Avoid nephrotoxins Renally dose medications Appreciate urology evaluation for possible cystoscopy/stone management in view of ART with ureteral stone Currently on ceftriaxone. We will follow-up urine culture (4) Falls frequently: History of Parkinson's with deep brain stimulator Hold amantadine for today in view of renal function and dose appropriately. Get PT/OT evaluation (5) Underweight: BMI 17.9 Nutrition consult (6) Chronic diastolic heart failure: History of chronic diastolic congestive heart failure. History of nonrheumatic yjtoeyrh-ip-yraobp aortic valve insufficiency and moderate mitral and tricuspid regurgitation, on Lasix 20 mg 3 times a week. Also the patient could not higher doses of diuretics because of orthostatic hypotension. Admission and Anticipated Discharge Date Admission Date: March 07, 2021 Subjective 80-year-old female with past medical history significant for Parkinson's disease, status post deep brain stimulator in December 2020, history of nonrheumatic qbnzlund-eb-wobnyc aortic valve insufficiency, moderate mitral and tricuspid regurgitation, chronic diastolic heart failure, history of orthostatic hypotension, pulmonary hypertension, Raynaud's disease, hyperlipidemia, liver lesions, chronic kidney disease stage IIIA, restless legs syndrome, sicca syndrome, history of kidney stones, who lives with her and presents with frequent falls and weakness at home Found to have ART on CKD 3 with left distal ureteral stone. Possible UTI Patient seen and examined this morning. Reports some nausea and lower abdominal pain earlier this morning that has resolved Review of Systems Review of Systems: All systems reviewed & are unremarkable except as noted in Subjective Physical Exam Constitutional: + well hydrated; no acute distress Elderly frail woman Eyes: PERRL, conjunctivae normal, anicteric sclerae ENMT: external ear and nose normal, oropharynx normal Respiratory: normal respiratory effort, lungs clear to auscultation Cardiovascular: Rate/Rhythm: regular rate and regular rhythm S1 S2 Gastrointestinal (Abdomen): normal bowel sounds, soft, nontender, no hepatosplenomegaly Musculoskeletal: No pedal edema Neurologic: PERRL, EOMI, accommodation nl, no face palsy, no dysarthria Psychiatric: Orientation: alert, oriented to person and cooperative; + not oriented to place and + not oriented to time Genitourinary: no CVA tenderness Results & Data Results & Data ([facility]) Vital Signs (Past 12 Hours) Vital Signs Temp Pulse Pulse Resp BP BP Pulse Ox 03/07/21 10:22 74 143/59 H 03/07/21 07:17 36.6 C 73 16 176/68 H 97 03/07/21 02:10 36.5 C 79 20 119/72 94 03/07/21 01:30 73 20 149/80 H Pulse Ox 03/07/21 10:22 03/07/21 07:17 03/07/21 02:10 94 03/07/21 01:30 Laboratory Results Abnormal lab results 03/06/21 03/06/21 03/06/21 Range/Units 21:00 21:00 23:10 RBC 3.61 L (4.2-5.4) M/uL Hgb 11.0 L (12.0-16.0) g/dL Hct 33.8 L (37-47) % RDW Std Deviation 48.3 H (36.4-46.3) fL Neut # (Auto) 7.15 H (1.4-6.5) K/uL Lymph # (Auto) 1.16 L (1.2-3.4) K/uL [place] # (Auto) 0.93 H (0.11-0.59) K/uL Immature Gran # (Auto) 0.03 H (0.00-0.02) K/uL Sodium 135 L (136-145) mmol/L Chloride (98-107) mmol/L BUN 44 H (7-18) mg/dl Creatinine 2.39 H (0.6-1.2) mg/dl Glucose 178 H (70-99) mg/dl ALT < 6 L (12-78) U/L Albumin 2.8 L (3.4-5.0) gm/dl Globulin 4.2 H (2.5-4.0) gm/dl Albumin/Globulin Ratio 0.7 L (0.9-2) Urine Protein Trace H (Negative) Urine Blood 2+ H (Negative) Urine Bacteria 1+ H (Negative) 03/07/21 03/07/21 Range/Units 06:07 06:07 RBC 3.63 L (4.2-5.4) M/uL Hgb 11.0 L (12.0-16.0) g/dL Hct 34.3 L (37-47) % RDW Std Deviation 48.6 H (36.4-46.3) fL Neut # (Auto) 6.80 H (1.4-6.5) K/uL Lymph # (Auto) 1.05 L (1.2-3.4) K/uL [place] # (Auto) 0.97 H (0.11-0.59) K/uL Immature Gran # (Auto) (0.00-0.02) K/uL Sodium (136-145) mmol/L Chloride 109 H (98-107) mmol/L BUN 36 H (7-18) mg/dl Creatinine 2.10 H (0.6-1.2) mg/dl Glucose 117 H (70-99) mg/dl ALT (12-78) U/L Albumin (3.4-5.0) gm/dl Globulin (2.5-4.0) gm/dl Albumin/Globulin Ratio (0.9-2) Urine Protein (Negative) Urine Blood (Negative) Urine Bacteria (Negative)
[2021-03-07] MEDS: HEPARIN SOD 5,000 UNIT/0.5 ML VIAL SQ SCH ×2 (12:48→23:43)
[2021-03-07] MEDS: ASPIRIN 81 MG CHEW PO SCH (12:48)
[2021-03-07] MEDS ORDERED: LIDOCAINE 2% 2 ML VIAL/AMP(20MG/ML) INFIL ONE (15:10)
[2021-03-07] MEDS ORDERED: fentaNYL citrate 100 MCG/2 ML VIAL ONE (15:10)
[2021-03-07] MEDS ORDERED: PROPOFOL IV EMULSION 10 MG/ML 20 ML VIAL IV ONE (15:10)
--- NOTE | 2021-03-07 15:12 | Anesthesiology Consultation ---
Date of Service March 07, 2021 Assessment & Plan Chart Review Chart Review: Acceptable Risk for Surgery and Patient NOT seen in Pre Admission Testing Consults Requested none ASA ASA4 Proposed Anesthesia Anesthesia Type: General History Surgery Operation Date: 03/07/21 10:20 Proposed Procedures p Cystoscopy, Left Ureteroscopy Possible Stone Treatment, Stent Placement - C janell Zhao MD Height/Weight Height: 5 ft 5 in Weight: 48.9 kg Allergies Allergy/AdvReac Type Severity Reaction Status Date / Time Iodinated Contrast Media AdvReac Severe Anxiety Unverified 03/06/21 21:18 Medications Home Medications Medication Instructions Recorded Confirmed Last Taken amantadine HCl 100 mg PO BID 09/04/20 03/06/21 09/04/20 aspirin 81 mg PO DAILY 09/04/20 03/06/21 09/03/20 biotin 5 mg PO DAILY 09/04/20 03/06/21 09/03/20 carbidopa-levodopa [Rytary] See Rx Instructions .ROUTE .COMPLEX 09/04/20 03/06/21 09/04/20 ketoconazole 1 applic TOPICAL UD 09/04/20 03/06/21 Unknown aj-si-zyzc-FA-Ca carb-vit K 1 tab PO DAILY 09/04/20 03/06/21 09/03/20 [Women's Multivitamin] simvastatin 20 mg PO HS 09/04/20 03/06/21 09/03/20 cyclosporine [Restasis] 1 drp OPB BID 01/23/21 03/06/21 Unknown furosemide 20 mg PO 3XWK 01/23/21 03/06/21 Unknown tramadol 50 mg PO Q6H PRN #14 tab 01/23/21 03/06/21 Unknown gabapentin 400 mg PO HS 02/18/21 03/06/21 Unknown amoxicillin 2,000 mg PO ONCE PRN 03/06/21 03/06/21 Unknown lidocaine 1 patch TOPICAL DAILY PRN 03/06/21 03/06/21 Unknown Active Medications Generic Name Dose Route Start Last Admin Trade Name Freq PRN Reason Stop Dose Admin Aspirin 81 mg 03/07/21 09:00 03/07/21 12:48 Aspirin 81 Mg Chew PO 04/06/21 08:59 81 mg DAILY DONATO Administration Carbidopa/Levodopa 1.5 tab 03/07/21 09:00 03/07/21 12:49 Carbidopa/Levodopa 25/100mg Tab PO 04/06/21 08:59 1.5 tab QID DONATO Administration Heparin Sodium (Porcine) 5,000 units 03/07/21 09:00 03/07/21 12:48 Heparin Sod 5,000 Unit/0.5 Ml Vial SQ 04/06/21 08:59 5,000 units Q12 DONATO Administration Sodium Chloride 1,000 mls @ 75 mls/hr 03/07/21 03:00 03/07/21 03:06 Nss 1000ml IV 04/06/21 02:59 75 mls/hr .[id number] DONATO Administration Ceftriaxone Sodium 1,000 mg/ 50 mls @ 100 mls/hr 03/07/21 03:00 03/07/21 04:00 Dextrose IV 03/17/21 02:59 Infused Q24H DONATO Infusion Protocol Miscellaneous 1 ea 03/07/21 08:00 03/07/21 08:24 *Restasis*Order Awaiting Action N/A 04/06/21 07:59 Not Given QS DONATO Miscellaneous 1 ea 03/07/21 08:00 03/07/21 08:24 *Ketoconazole 2% Shampoo*Order Awaiting Action N/A 04/06/21 07:59 Not Given QS DONATO Multivitamins 1 tab 03/07/21 09:00 03/07/21 11:05 Multivitamin Tab PO 04/06/21 08:59 Not Given DAILY DONATO Tamsulosin HCl 0.4 mg 03/07/21 09:00 03/07/21 12:16 Tamsulosin Hcl 0.4 Mg Cap PO 04/06/21 08:59 Not Given QAM DONATO NPO Date Last Intake of Fluids: 03/06/21 Time Last Intake of Fluids: 23:59 Date Last Intake of Solids: 03/06/21 Time Last Intake of Solids: 23:59 Exercise / Class Metabolic Activity III < 4 Walking/Shop/Light housework Past Anesthesia History No Hx of Anesthesia Complications and No Family Hx of Anesthesia Complications History of PONV No Hx of PONV and No Hx of Motion Sickness Social History Smoking Status: Never smoker Hx Alcohol Use: No Hx Substance Use: No Physical Exam Vital Signs Last Vital Signs Temp 36.5 C 03/07/21 14:45 Pulse 73 03/07/21 14:45 Resp 16 06/10/21 14:45 BP 153/64 H 03/07/21 14:45 Pulse Ox 98 03/07/21 14:45 Testing Laboratory Results 03/07/21 06:07 03/07/21 06:07 Urine Color Yellow 03/06/21 23:10 Urine Appearance Clear (Clear) 03/06/21 23:10 Urine pH 5.0 (4.5-7.5) 03/06/21 23:10 Ur Specific [place] <= 1.005 (1.000-1.030) 03/06/21 23:10 Urine Protein Trace (Negative) H 03/06/21 23:10 Urine Glucose (UA) Negative (Negative) 03/06/21 23:10 Urine Ketones Negative (Negative) 03/06/21 23:10 Urine Nitrite Negative (Negative) 03/06/21 23:10 Ur Leukocyte Esterase Negative (Negative) 03/06/21 23:10 Urine RBC 0-4 /hpf (0-4) 03/06/21 23:10 Urine WBC 0-5 /hpf (0-5) 03/06/21 23:10 Ur Epithelial Cells 0-5 /lpf (0-5) 03/06/21 23:10 Electrocardiogram Date: 03/06/21 Findings: + NSR @ (at 73) and + LVH Chest X-Ray Date: 03/06/21 Findings: + atelectasis (left basilar) and + pleural effusion (trace left)
--- NOTE | 2021-03-07 15:26 | History & Physical Bridge Note ---
Date of Service March 07, 2021 History & Physical Bridge Note I have examined the patient, reviewed the History & Physical and in the interval since the performance of the History & Physical I have noted the following changes of clinical significance: no changes noted
[2021-03-07] MEDS ORDERED: LABETALOL HCL IV 5 MG/ML 20ML IV PRN (15:32)
[2021-03-07] MEDS ORDERED: PROMETHAZINE HCL 12.5 MG in SODIUM CHLORIDE 0.9% 50 ML IV PRN (15:32)
[2021-03-07] MEDS ORDERED: ePHEDrine sulfate 50 MG/ML AMP IV PRN (15:32)
[2021-03-07] MEDS ORDERED: ATROPINE SULFATE 0.1 MG/ML 10ML SYR IV PRN (15:32)
[2021-03-07] MEDS ORDERED: NALOXONE HCL 0.4 MG/1 ML VIAL/CARP IV PRN (15:32)
[2021-03-07] MEDS ORDERED: FLUMAZENIL 0.1 MG/1 ML 10 ML VIAL IV PRN (15:32)
[2021-03-07] MEDS ORDERED: fentaNYL citrate 100 MCG/2 ML VIAL IV PRN (15:32)
[2021-03-07] MEDS ORDERED: DIATRIZOATE MEGLUMINE 30% 100ML VIAL INSTIL ONE (16:27)
--- NOTE | 2021-03-07 16:30 | Operative Report ---
PG Post Operative Report Pre & Post Diagnosis Operation Date: 03/07/21 10:20 Pre-Op Diagnosis: Left stone Post-Op Diagnosis: Left stone I identified the patient and participated in the time-out.: Yes Procedure Operation Date: 03/07/21 10:20 Actual Procedures p Cystoscopy, Left Ureteroscopy, aspiration, retrograde pyelogram, and left Stent Placement(Left) - Ruben Camp DO Surgeon Ruben Camp, II, DO Greenhouse Laborer None Estimated Blood Loss 1 Findings Consistent with Post-Op Diagnosis Stent placed in good position. Severe tortuosity of ureter with severe hydronephrosis. Specimens None Drains 6 Fr x 24 Anesthesia Type MAC Complications none Disposition Disposition: Recovery Room Indications Patient with obstruction. Risks and benefits discussed at length. Description of Procedure Patient was consented and brought back to the operating room. Patient was placed under anesthesia in the supine position and moved to the dorsal lithotomy position. Patient was prepped and draped in the regular sterile fashion. A time out was completed. A 30degree Cystoscope was placed into the bladder and the entire bladder was examined. The UO's were identified. The UO was cannulized with a catheter, urine was aspirated, and a retrograde pyelogram was completed. A wire was then placed. Significant manipulation was necessary as the severe hydronephrosis caused an irregular course of the ureter. The wire was able to enter the renal pelvis. With the wire in place, a 6 Fr Double J stent was placed. It was confirmed with fluoroscopy. With the stent in place, the bladder was emptied. The scope was removed. The patient was cleaned, aroused from anesthesia, and transferred to the pacu in stable condition having tolerated the procedure well with no complications. I was present and participated in all aspects of the procedure. The patient will be monitored in the PACU until transferred. I attest to the content of the Intraoperative Record and any orders documented therein. Any exceptions are noted below.
--- NOTE | 2021-03-07 16:48 | Fluoroscopy Report ---
FL retrograde includes kub HISTORY: 80 years-old Female LT CYSTO/STONE/LASER/STENT left-sided cystourethrogram COMPARISON: CT abdomen and pelvis 03/06/2021 TECHNIQUE: 23 spot fluoroscopic images of the abdomen and pelvis were obtained utilizing 253.9 second s fluoroscopy time FINDINGS: Left-sided ureteroscope is noted with cannulation of the left ureter. Severe left-sided hydroureteron ephrosis redemonstrated with blunting of the calyces. Subsequent images demonstrate deployment of a l eft ureteral stent, proximal portion of the stent within the proximal left ureter. The distal portion is in the location of the urinary bladder. IMPRESSION: Fluoroscopic assistance as above. ACT 112: Negative or not required by law. The above report was generated using voice recognition software. It may contain grammatical, syntax o r spelling errors. Electronically signed by: Fei Westbrook M.D. 03/07/2021 4:47 PM
--- NOTE | 2021-03-07 17:00 | Anesthesiology Progress Note ---
Date of Service March 07, 2021 Anesthesia Post Procedure Vital Signs Vital Signs: Temp Pulse Pulse Pulse Resp BP BP 03/07/21 16:45 70 17 131/68 03/07/21 16:36 36.3 C L 71 20 140/58 L 03/07/21 15:15 36.8 C 78 20 169/66 H 03/07/21 14:45 36.5 C 73 16 153/64 H 03/07/21 10:22 74 143/59 H 03/07/21 07:17 36.6 C 73 16 176/68 H 03/07/21 02:10 36.5 C 79 20 119/72 03/07/21 01:30 73 20 149/80 H 03/07/21 00:31 73 16 184/76 H 03/07/21 00:01 71 17 167/55 H 03/06/21 23:00 72 19 117/50 L 03/06/21 22:30 72 17 132/69 03/06/21 22:01 70 16 92/78 L 03/06/21 21:03 71 17 174/76 H 03/06/21 21:00 72 23 03/06/21 20:35 03/06/21 20:34 71 19 148/56 H 03/06/21 19:56 36.3 C L 74 20 129/60 Pulse Ox Pulse Ox 03/07/21 16:45 99 03/07/21 16:36 96 03/07/21 15:15 99 03/07/21 14:45 98 03/07/21 10:22 03/07/21 07:17 97 03/07/21 02:10 94 94 03/07/21 01:30 03/07/21 00:31 03/07/21 00:01 03/06/21 23:00 03/06/21 22:30 03/06/21 22:01 03/06/21 21:03 03/06/21 21:00 03/06/21 20:35 94 03/06/21 20:34 03/06/21 19:56 97 Pain Intensity Lower Back: Pain Intensity: 5 Transfer of Care Handoff Completed per policy Notes Mental Status: alert / awake / arousable and participated in evaluation Patient Amnestic to Procedure: Yes Nausea / Vomiting: adequately controlled Pain: adequately controlled Airway Patency, RR, SpO2: stable & adequate BP & HR: stable & adequate Hydration State: stable & adequate Anesthetic Complications: no major complications apparent
[2021-03-07] MEDS: GABAPENTIN 400 MG CAP PO SCH (23:42)
[2021-03-07] MEDS: SIMVASTATIN 20 MG TAB PO SCH (23:42)
[2021-03-08] MEDS: *RESTASIS*ORDER AWAITING ACTION SCH ×4 (01:57→23:20)
[2021-03-08] MEDS: cefTRIAXone SODIUM 1,000 MG in DEXTROSE 5% 50 ML IV SCH (03:43)
--- NOTE | 2021-03-08 06:34 | Electrocardiogram Report ---
Test Reason : Blood Pressure : / mmHG Vent. Rate : 072 BPM Atrial Rate : 072 BPM P-R Int : 128 ms QRS Dur : 078 ms QT Int : 410 ms P-R-T Axes : 075 011 073 degrees QTc Int : 448 ms Normal sinus rhythm Left ventricular hypertrophy with repolarization abnormality Abnormal ECG When compared with ECG of 29-NOV-2013 17:39, No significant change was found Confirmed by Haider Adler ([id number]) on 03/08/2021 6:34:39 AM Referred By: Jose Colindres Confirmed By:Haider Adler
[2021-03-08] MEDS: SODIUM CHLORIDE 0.9% 1000ML 1,000 ML IV SCH ×2 (07:44→21:46)
--- NOTE | 2021-03-08 08:44 | Urology Progress Note ---
Date of Service March 08, 2021 Assessment & Plan (1) Kidney stone on left side: (2) ART (acute kidney injury): 80yo F admitted with weakness and ART secondary to a 5mm left ureteral stone with associated hydronephrosis - Postop day #1 status post Cystoscopy, Left Ureteroscopy, aspiration, r etrograde pyelogram, and left Stent Placement with Dr. Camp. - Remains afebrile. - Labs reviewed, Wbc stable and creatinine improved to 1.26 today (previously 2.10). - Urine cultures pending. - Recommend continue supportive care and antibiotic therapy, follow cultures. - Will arrange outpatient follow-up with urology for definitive stone management. - Thank you for allowing us to participate in the acute care of Ms. Levy. - Please reconsult us with additional questions, concerns or changes in patient status. Admission and Anticipated Discharge Date Admission Date: March 07, 2021 Subjective Patient examined at bedside this AM. Awake, no acute distress. Resting in bed on arrival. Forgetful and confused at times, reorients easily. She c/o bilateral back pain this morning. Denies abdominal and flank pain. Denies fevers or chills. No nausea or vomiting. Tolerating diet. Denies hematuria and dysuria. Voiding spontaneously with episodes of incontinence. Chart review: Afebrile Urine culture pending On IV Ceftriaxone Review of Systems Constitutional: as per Subjective / HPI Gastrointestinal: as per Subjective / HPI Genitourinary: as per Subjective / HPI Physical Exam Constitutional: + frail appearing; no acute distress Respiratory: normal respiratory effort; no labored breathing and no audible wheezes Gastrointestinal (Abdomen): Percussion/Palpation: abdomen soft; abdomen nontender and no guarding Skin: No visible rashes or lesions Neurologic: awake Psychiatric: Orientation: alert, oriented to person and cooperative Results & Data ([facility]) Vital Signs (Past 12 Hours) Vital Signs Temp Pulse Resp BP Pulse Ox 03/07/21 20:27 36.4 C L 77 15 167/71 H 98 PG Care Time/CCT Total # of Minutes Spent Total Time Spent with Patient: Total time spent is greater than 50% in coordination of care (as documented) at patient's floor/unit and/or counseling patient: Coding Level of Care Code 20123 Subseq Hosp Care Lvl 2 Diagnoses Kidney stone on left side N20.0 ART (acute kidney injury) N17.9
[2021-03-08] MEDS: MULTIVITAMIN TAB PO SCH (08:51)
[2021-03-08] MEDS: HEPARIN SOD 5,000 UNIT/0.5 ML VIAL SQ SCH ×2 (08:51→21:46)
[2021-03-08] MEDS: CARBIDOPA/LEVODOPA 25/100MG TAB PO SCH ×4 (08:52→21:45)
[2021-03-08] MEDS: ASPIRIN 81 MG CHEW PO SCH (08:52)
[2021-03-08] MEDS: TAMSULOSIN HCL 0.4 MG CAP PO SCH (08:53)
[2021-03-08] MEDS ORDERED: AMANTADINE HCL 100 MG CAPSULE PO SCH (09:00)
[2021-03-08] MEDS: amLODIPine BESYLATE 5 MG TAB PO SCH (10:52)
--- NOTE | 2021-03-08 11:51 | Hospitalist Progress Note ---
Date of Service March 08, 2021 Assessment & Plan (1) Weakness: (2) ART (acute kidney injury): (3) Kidney stone on left side: ART on CKD 3 Due to to ureteral stone Status post cystoscopy, left ureteroscopy, aspiration and left stent placement yesterday Creatinine improved to 1.26 this morning. Was 2.39 on admission. Continue IV fluids Avoid nephrotoxins Urine culture does not show any growth. Discontinue ceftriaxone (4) Falls frequently: History of Parkinson's with deep brain stimulator reported patient's memory and confusion has been worsening over time He also reported that her activity level had declined. He stated their neur ologist recommend adjustments of her assistive devices at home. Plan to dc home but may need home PT Get PT/OT evaluation (5) Underweight: BMI 17.9 Encourage diet (6) Chronic diastolic heart failure: History of chronic diastolic congestive heart failure. History of nonrheumatic jovatwgg-vx-soxhyr aortic valve insufficiency and moderate mitral and tricuspid regurgitation, on Lasix 20 mg 3 times a week. Also the patient could not higher doses of diuretics because of orthostatic hypotension. Called and updated him Patient may need home PT on discharge Admission and Anticipated Discharge Date Admission Date: March 07, 2021 Subjective 80-year-old female with past medical history significant for Parkinson's disease, status post deep brain stimulator in December 2020, history of nonrh eumatic axxripll-ct-hrhazo aortic valve insufficiency, moderate mitral and tricuspid regurgitation, chronic diastolic heart failure, history of orthostatic hypotension, pulmonary hypertension, Raynaud's disease, hyperlipidemia, liver lesions, chronic kidney disease stage IIIA, restless legs syndrome, sicca syndrome, history of kidney stones, who lives with her and presents with frequent falls and weakness at home Found to have ART on CKD 3 with left distal ureteral stone. Patient seen and examined. Very poor historian. Has no complaints at this time. RN reported that patient reported back pain earlier this morning Review of Systems Review of Systems: All systems reviewed & are unremarkable except as noted in Subjective Physical Exam Constitutional: + well hydrated; no acute distress Eyes: PERRL, conjunctivae normal, anicteric sclerae ENMT: external ear and nose normal, oropharynx normal Respiratory: normal respiratory effort, lungs clear to auscultation Cardiovascular: Rate/Rhythm: regular rate and regular rhythm S1-S2 Gastrointestinal (Abdomen): normal bowel sounds, soft, nontender, no hepatosplenomegaly Musculoskeletal: No pedal edema Neurologic: PERRL, EOMI, accommodation nl, no face palsy, no dysarthria Psychiatric: Orientation: alert, oriented to person and cooperative; + not oriented to place and + not oriented to time Genitourinary: no CVA tenderness Results & Data Results & Data ([facility]) Vital Signs (Past 12 Hours) Vital Signs Temp Pulse Resp BP Pulse Ox 03/08/21 07:30 36.5 C 83 18 167/66 H 99 Laboratory Results Abnormal lab results 03/08/21 03/08/21 Range/Units 12:05 12:05 RBC 3.63 L (4.2-5.4) M/uL Hgb 11.3 L (12.0-16.0) g/dL Hct 34.1 L (37-47) % RDW Std Deviation 48.1 H (36.4-46.3) fL Chloride 109 H (98-107) mmol/L BUN 24 H (7-18) mg/dl Creatinine 1.26 H D (0.6-1.2) mg/dl Glucose 122 H (70-99) mg/dl
[2021-03-08 12:17] LABS: Hematocrit (blood only) 34.1 % (37-47); Hemoglobin 11.3 g/dL (12.0-16.0); Mean Corpuscular Hemoglobin 31.1 pg (25-34); Mean Corpuscular Hgb Conc 33.1 g/dL (32-36); Mean Corpuscular Volume 93.9 fL (80-100); Platelet Count 296 K/uL (130-400); RDW Coefficient of Variation 13.9 % (11.5-14.5); RDW Standard Deviation 48.1 fL (36.4-46.3); Red Blood Count 3.63 M/uL (4.2-5.4); White Blood Count 9.38 K/uL (4.8-10.8)
[2021-03-08 12:39] LABS: BUN Creatinine Ratio 19.2 (10-20); Calcium 9.4 mg/dl (8.5-10.1); Creatinine Clr Calc Pharmacy 27.9 ml/min; Est GFR (African American) 46.9 ml/min; Est GFR (Non-African American) 40.5 ml/min; Potassium 4.1 mmol/L (3.5-5.1)
[2021-03-08] MEDS: GABAPENTIN 400 MG CAP PO SCH (21:46)
[2021-03-08] MEDS: SIMVASTATIN 20 MG TAB PO SCH (21:46)
[2021-03-09 07:10] LABS: Hematocrit (blood only) 28.9 % (37-47); Hemoglobin 9.4 g/dL (12.0-16.0); Mean Corpuscular Hemoglobin 30.4 pg (25-34); Mean Corpuscular Hgb Conc 32.5 g/dL (32-36); Mean Corpuscular Volume 93.5 fL (80-100); Mean Platelet Volume 8.7 fL (7.4-10.4); Platelet Count 279 K/uL (130-400); RDW Coefficient of Variation 14.2 % (11.5-14.5); RDW Standard Deviation 48.2 fL (36.4-46.3); Red Blood Count 3.09 M/uL (4.2-5.4); White Blood Count 9.26 K/uL (4.8-10.8)
[2021-03-09 07:27] LABS: BUN Creatinine Ratio 13.7 (10-20); Calcium 8.1 mg/dl (8.5-10.1); Creatinine Clr Calc Pharmacy 25.7 ml/min; Est GFR (African American) 42.4 ml/min; Est GFR (Non-African American) 36.6 ml/min; Potassium 4.1 mmol/L (3.5-5.1)
[2021-03-09] MEDS: TAMSULOSIN HCL 0.4 MG CAP PO SCH (08:29)
[2021-03-09] MEDS: CARBIDOPA/LEVODOPA 25/100MG TAB PO SCH ×2 (08:29→13:07)
[2021-03-09] MEDS: MULTIVITAMIN TAB PO SCH (08:29)
[2021-03-09] MEDS: HEPARIN SOD 5,000 UNIT/0.5 ML VIAL SQ SCH (08:30)
[2021-03-09] MEDS: amLODIPine BESYLATE 5 MG TAB PO SCH (08:30)
[2021-03-09] MEDS: ASPIRIN 81 MG CHEW PO SCH (08:30)
[2021-03-09] MEDS: SODIUM CHLORIDE 0.9% 1000ML 1,000 ML IV SCH (08:31)
[2021-03-09] MEDS: *RESTASIS*ORDER AWAITING ACTION SCH (08:31)
--- NOTE | 2021-03-09 13:19 | Discharge Summary ---
Date of Service March 09, 2021 Admission HPI Per Admitting Provider This is a 80-year-old female with past medical history significant for Parkinson's disease, status post deep brain stimulator in December 2020, history of nonrheumatic yqjimild-ot-ubxroj aortic valve insufficiency, moderate mitral and tricuspid regurgitation, chronic diastolic heart failure, history of orthostatic hypotension, pulmonary hypertension, Raynaud's disease, hyperlipidemia, liver lesions, chronic kidney disease stage IIIA, restless legs syndrome, sicca syndrome, history of kidney stones, who lives with her . Comes because of frequent falls and weakness at home. The patient went to PCP office. Outpatient labs showed creatinine of 2.1, baseline is 1.1. She was advised to come to the hospital. Currently resting comfortably and hemodynamically stable. The patient says lately she is feeling weakness and falling frequently at home. Uses walker at home. Denies any fever, chills, no headache, no blurred visions, no earache, no runny nose, no sore throat, no cough, no dysphagia. Appetite is okay, but she does not eat much. No chest pain, no shortness of breath, no nausea, no abdominal pain, no diarrhea, somewhat constipated. Denies any blood in the stools. Normal bladder movements. She says she has chronic microscopic hematuria. Denies any burning micturition, no swelling in the legs, no rash. Hemodynamically stable. Admission Exam Per Admitting Provider GENERAL: The patient is old and frail, not in acute distress. VITAL SIGNS: Temperature 36.3, pulse 73, respiratory rate 16, blood pressure 184/76, and oxygen 94% on room air. HEENT: Pupils equal, round, reactive to light. Oral mucosa dry. NECK: No JVD. No neck masses. CARDIOVASCULAR: S1, S2 heard, regular rate and rhythm, no murmur, no gallop. RESPIRATORY SYSTEM: Normal AP diameter. No accessory muscle use. No wheezing, no crackles. ABDOMEN: Soft, bowel sounds present, nontender. No distention. CENTRAL NERVOUS SYSTEM: Cranial nerves II-XII grossly intact, nonfocal. EXTREMITIES: No edema, no erythema. Principal Diagnosis Frequent falls at home. Acute on chronic kidney disease stage III Left ureteral stone status post stent Hypertension Discharge Exam Constitutional + well hydrated; no acute distress Eyes PERRL, conjunctivae normal, anicteric sclerae ENMT external ear and nose normal, oropharynx normal Respiratory normal respiratory effort, lungs clear to auscultation Cardiovascular Rate/Rhythm: regular rate and regular rhythm S1 S2 Gastrointestinal (Abdomen) normal bowel sounds, soft, nontender, no hepatosplenomegaly Musculoskeletal No pedal edema Neurologic PERRL, EOMI, accommodation nl, no face palsy, no dysarthria Psychiatric Orientation: alert, oriented to person and cooperative; + not oriented to place and + not oriented to time Genitourinary no CVA tenderness Discharge Data Allergies Allergy/AdvReac Type Severity Reaction Status Date / Time Iodinated Contrast Media AdvReac Severe Anxiety Verified 03/07/21 15:37 Consultations 03/06/21 23:33 ED Decision to Admit Stat 03/07/21 08:00 Consult Urology Routine Procedures Performed Operation Date: 03/07/21 10:20 Actual Procedures p left Stent Placement(Left) - Ruben Camp, s Cystoscopy, aspiration of urine, retrograde pyelogram, (Left) - Jesus Alberto Zhao MD Ordered Studies 03/06/21 20:31 CT abd pelvis wo con Urgent Left lower lobe opacity favors atelectasis. A 5 mm distal left ureteral calculus results in moderate to severe left hydroureteronephrosis. Infiltration within the left renal sinus is noted. Small bilateral renal calculi are present. There are no right ureteral calculi. There is no right hydronephrosis. A water attenuation lesion within lower pole of the left kidney is suboptimally assessed on this unenhanced exam but favors a cyst. Unenhanced images of liver, spleen, adrenal glands and pancreas are unremarkable. There is no biliary or pancreatic ductal dilatation. There is no lymphadenopathy. There is no evidence for a bowel obstruction. No acute fracture or suspicious lesion is identified within the visualized skeletal structures. There is a moderate amount of stool within the colon. IMPRESSION: 1. 5 mm distal left ureteral calculus results in moderate to severe left hydroureteronephrosis. 2. Bilateral nephrolithiasis. 3. No acute traumatic findings within the abdomen or pelvis on unenhanced exam. CT head/brain wo con Urgent The paranasal sinuses and mastoid air cells are clear. The calvarium and skull base are intact. There is no mass, hematoma, midline shift, acute infarct. White matter hypodensity is nonspecific but suggestive of microvascular ischemic change. The ventricles and sulci demonstrate mild age-related involutional changes. Deep neurostimulator devices are again noted. Impression: No significant change compared to the prior study. No acute intracranial abnormality. CT lumbar spine wo con Urgent Please note that the CT of the abdomen and pelvis will be reported separately. A 5 mm distal left ureteral calculus with moderate to severe left hydronephrosis and bilateral nephrolithiasis are better depicted on that exam. The sacroiliac joints are intact. There is no acute fracture within the lumbar spine. Facet joints are intact. Moderate multilevel facet arthrosis is noted. There is moderate disc space narrowing with osteophytosis at L5-S1. The central canal and neural foramen are suboptimally assessed by CT. IMPRESSION: No acute lumbar spine fracture or subluxation. 03/07/21 FL retrograde includes kub Routine Hospital Course (1) Weakness: (2) ART (acute kidney injury): (3) Kidney stone on left side: ART on CKD 3 Due to to ureteral stone Status post cystoscopy, left ureteroscopy, aspiration and left stent placement on 03/07/21 Creatinine was on 2.39 on admission, improved after stent placement. It is 1.37 today Patient to follow up with Urology outpatient for definitive stone management (4) Falls frequently: History of Parkinson's with deep brain stimulator reported patient's memory and confusion has been worsening over time He also reported that her activity level had declined. He stated their neurologist recommend adjustments of her assistive devices at home. Patient discharged home with home health (5) Underweight: BMI 17.9 Encourage diet (6) Chronic diastolic heart failure: History of chronic diastolic congestive heart failure. History of nonrheumatic fptccpyc-ep-qvxxay aortic valve insufficiency and moderate mitral and tricuspid regurgitation, on Lasix 20 mg 3 times a week. Also the patient could not higher doses of diuretics because of orthostatic hypotension. (7) Hypertension: Blood pressure was elevated during hospitalization BP was up to 200/70 Started on amlodipine 5mg daily. BP currently controlled PCP to follow up and manage appropriately Total Time Total Time Spent Total Time Spent (In Minutes): 35 Total Time Includes: Examination of the Patient, Discharge Planning and Medication Reconciliation Discharge Plan Discharge Items Patient Disposition: Home - Home Health Services Reason For Visit: Frequent falls Discharge Diagnosis: Frequent falls at home. Acute on chronic kidney disease stage III Left ureteral stone status post stent Hypertension Activity: Resume your previous activity Non-emergency contact: Primary Care Provider and Urologist Call non-emergency contact if: you have any medication questions and your symptoms worsen Follow-up/Referrals: Jose Colindres MD [Primary Care Provider] - Diet: Heart Healthy Diet Comment: Minced and moist Addtl Attending Provider Instructions: Mrs. Levy You were brought to the hospital for frequent falls at home. You were evaluated and found to stone in the left ureter. He had a cystoscopy and ureteral stent placement by the urologist. Your kidney function improved. It is very important that you follow-up with urology outpatient. Your blood pressure was also very elevated while inpatient. You were started on amlodipine for blood pressure control Please ensure follow-up with your primary care doctor and your neurologist. It was a pleasure taking care of you Pending Studies at Discharge: No Stand-Alone Forms: My [facility] [employer], Smoking Cessation Medications and DC Order Prescriptions: New amlodipine [Norvasc] 5 mg Tablet 5 mg PO QAM 30 Days Qty: 30 RF: 0 tamsulosin 0.4 mg Capsule 0.4 mg PO QAM 30 Days Qty: 30 RF: 0 Continued ketoconazole 2 % shampoo 1 applic TOPICAL UD RF: 0 amantadine HCl 100 mg capsule 100 mg PO BID RF: 0 simvastatin 20 mg tablet 20 mg PO HS RF: 0 aspirin 81 mg Tablet,Chewable 81 mg PO DAILY RF: 0 biotin 5 mg Tablet 5 mg PO DAILY RF: 0 Women's Multivitamin 18 mg iron-400 mcg-500 mg Tablet 1 tab PO DAILY RF: 0 Rytary 48.75-195 mg capsule, extended release See Rx Instructions .ROUTE .COMPLEX RF: 0 gabapentin 400 mg capsule 400 mg PO HS RF: 0 amoxicillin 500 mg capsule 2,000 mg PO ONCE PRN (Reason: moring of dental procedure) RF: 0 lidocaine 4 % adhesive patch,medicated 1 patch topical DAILY PRN (Reason: Pain) RF: 0 furosemide 20 mg tablet 20 mg PO 3XWK RF: 0 Restasis 0.05 % dropperette 1 drp OPB BID RF: 0 tramadol 50 mg tablet 50 mg PO Q6H PRN (Reason: pain) Qty: 14 RF: 0 Discharge Orders: Discharge Order (Routine); Ordered 03/09/21 Ordered By: Sidra Espinoza Admission Data Admit Date/Time: 03/07/21 01:10 Attending Provider: Sidra Espinoza I. Admit Provider: Rei Clarke Primary Care Provider: Jose Colindres Other Providers: Germán Doty ; Rei Clarke ; Hardik Urias ; Darnell Burt ; Jesus Alberto Zhao ; Jennifer Silva ; Ruben Camp ; Caroline Leigh Melissa A. ; Sheri Cameron ; Rohith Clemons ; Amparo Arrieta ; Sona Cameron Other Interventions: Discharge Summary Assessment (RN) Last Done: 03/09/21 13:26
== END 2021-03-09 15:04 | disposition home health service (06) | DRG 660 ==
LOC: ED 19:52 → 3N 03-07 00:26 → SUATTDRO 03-07 00:26 → 3N 03-07 02:10

== ENCOUNTER 2022-04-14 18:01 | Inpatient (IN) ==
[2022-04-14 19:11] LABS: Basophils # (auto) 0.02 K/uL (0-0.2); Basophils % (auto) 0.4 %; Eosinophils % (auto) 3.9 %; Hematocrit (blood only) 36.2 % (34.1-44.9); Hemoglobin 11.8 g/dl (12.0-16.0); Immature Granulocytes # (auto) 0.01 K/uL (0.00-0.02); Immature Granulocytes % (auto) 0.2 %; Lymphocytes # (auto) 1.16 K/uL (1.2-3.4); Lymphocytes % (auto) 22.7 %; Mean Corpuscular Hemoglobin 30.5 pg (25.0-34.0); Mean Corpuscular Hgb Conc 32.6 g/dL (32.0-36.0); Mean Corpuscular Volume 93.5 fL (80.0-100.0); Mean Platelet Volume 9.6 fL (9.4-12.3); Monocytes # (auto) 0.53 K/uL (0.24-0.82); Monocytes % (auto) 10.4 %; Neutrophils % (auto) 62.4 %; Platelet Count 196 K/uL (130-400); RDW Coefficient of Variation 12.7 % (11.5-14.5); RDW Standard Deviation 43.3 fL (36.4-46.3); Red Blood Count 3.87 M/uL (3.93-5.22); White Blood Count 5.12 K/ul (4.8-10.8)
[2022-04-14 19:18] LABS: iSTAT Creatinine 1.5 mg/dl (0.6-1.3); iSTAT Hemoglobin 12.6 g/dl (12.0-16.0); iSTAT Ionized Calcium 1.19 mmol/l (1.12-1.32); iSTAT Potassium 3.8 mmol/L (3.3-5.0)
[2022-04-14 19:25] LABS: Partial Thromboplastin Ratio 0.9; Partial Thromboplastin Time 24.9 Seconds (21.0-31.0); Prothrombin Time 10.6 Seconds (9.0-12.0)
[2022-04-14 19:34] LABS: Albumin Globulin Ratio 1.7 (0.9-2); BUN Creatinine Ratio 25.2 (10-20); Bilirubin,Total 0.5 mg/dl (0.2-1.0); Calcium 8.7 mg/dl (8.5-10.1); Creatinine Clr Calc Pharmacy 24.9 ml/min; Est GFR (African American) 38.7 ml/min; Est GFR (Non-African American) 33.4 ml/min; Globulin 2.4 gm/dl (2.5-4.0); Magnesium 1.9 mg/dl (1.7-2.4); Potassium 3.8 mmol/L (3.5-5.1); Total Protein 6.4 gm/dl (6.0-8.3)
[2022-04-14 19:37] LABS: Troponin I High Sensitivity 6.4 pg/ml (0-14)
[2022-04-14] MEDS ORDERED: OPTIRAY 320 125ml IV ONE (19:38)
--- NOTE | 2022-04-14 20:00 | CT Scan Report ---
UNENHANCED CT OF THE BRAIN; CT ANGIOGRAM OF THE BRAIN; CT ANGIOGRAM OF THE NECK CLINICAL HISTORY: Strokelike symptoms. Falls. Dizziness. Slurred speech. Hallucinations. COMPARISON STUDY: CT of the brain dated 03/06/2021. TECHNIQUE: Unenhanced axial CT scan of the brain is performed. Subsequently, following the IV adminis tration of 101 of [address] 320, CT angiogram of the head and neck was performed from the aortic arch t o the vertex. Images are reviewed in the axial, sagittal, and coronal planes. 3-D MIPS images are cre ated and assessed. IV contrast was administered without complication. All measurements were calculate d based on NASCET criteria. A dose lowering technique was utilized adhering to the principles of ALA RA. Findings examination is degraded by streak artifact from intracranial electrodes. CT DOSE: 973.06 mGy.cm FINDINGS: Brain parenchyma: There is age-related involutional change noting mild subcortical and periventricula r microangiopathic disease. Electrodes from a bifrontal approach terminate in the basal ganglia bilat erally. These are unchanged in position from previous. There is no hemorrhage, mass effect, or eviden ce of acute territorial ischemia by CT criteria. There is no evidence of enhancing mass lesion on the angiogram phase images. The ventricles, sulci, and cisterns are prominent secondary to involutional change. Batista-white matter differentiation is preserved. No extra-axial fluid collection is seen. Thoracic aorta: Visualized portions of the thoracic aorta are normal in caliber. The aortic arch demo nstrates standard 3-vessel anatomy. Right carotid arterial system: The right common carotid artery is widely patent, as are the right int ernal and external carotid arteries. Mild calcified plaque is noted in the carotid bulb. Left carotid arterial system: The left common carotid artery is widely patent, as are the left internal corrosion specialist al and external carotid arteries. Minimal calcified plaque is seen in the carotid bulb. Vertebral arteries: The vertebral arteries are widely patent bilaterally noting a right-sided dominan ce. Subclavian arteries: Patent bilaterally. Atherosclerotic plaque causes less than 50% luminal narrowin g of the left subclavian artery below the thoracic outlet. Intracranial vasculature: There is atherosclerotic calcification of the cavernous carotid and vertebr al arteries. The lower [place] is developmentally complete. The internal carotid arteries are mcgee nt at the skull base, as are the anterior and middle cerebral arteries bilaterally. The vertebrobasil ar system and posterior cerebral arteries are widely patent. The right vertebral artery is dominant. There is no aneurysm, high-grade stenosis, or focal vessel cut off seen throughout the intracranial c irculation. Jugular veins: Patent bilaterally. Dural sinuses: Patent. Lung apices: Partially visualized upper lobe lung parenchyma appears clear. Soft tissues: The visualized pharyngeal soft tissues are normal in appearance noting angiographic pha se technique. The oropharyngeal airway appears widely patent. There is a heterogeneous thyroid goiter . The salivary glands are normal in appearance. No cervical lymphadenopathy is seen. Skeletal structures: The skeletal structures are osteopenic. There are bilateral frontal santiago holes. The calvarium otherwise appears intact. The cervical spine is maintained noting multilevel spondylosi s. No lytic or blastic lesion is seen. Orbits: The bony orbits are intact. Orbital contents are normal as visualized noting bilateral ocular lens implant. Sinuses and mastoids: The paranasal sinuses are clear. The mastoid air cells are well pneumatized. IMPRESSION: 1. There is no hemorrhage, mass effect, or evidence of acute territorial ischemia by CT criteria. 2. Intracranial electrodes are unchanged from previous. 3. Unremarkable CT angiogram of the brain. 4. Unremarkable CT angiogram of the neck. ACT 112: Negative or not required by law. Electronically signed by: Eddie Katz M.D. 04/14/2022 7:57 PM
[2022-04-14 20:18] LABS: Appearance Urine Clear (Clear); Bacteria Urine Automated Negative (Negative); Bilirubin Urine Negative (Negative); Blood Urine Negative (Negative); Color Urine Yellow; Glucose Urine UA Negative (Negative); Ketones Urine Negative (Negative); Leukocyte Esterase Urine Trace (Negative); Nitrite Urine Negative (Negative); Protein Urine Negative (Negative); RBC Urine Automated 0-4 /hpf (0-4); Specific Gravity Urine 1.009 (1.000-1.030); Urobilinogen Urine Negative (Negative)
--- NOTE | 2022-04-14 20:31 | Emergency Department Note ---
Impression & Plan Stroke-like symptoms ED Provider Note INFORMANT: Patient and significant other ED PROVIDER(S): Eddi Cox MD CHIEF COMPLAINT: Strokelike symptoms PLAN: Disposition: Admitted Condition: Good Outpatient prescription management: none Referral: None MEDICAL DECISION MAKING: Patient presented because of neurologic symptoms on the direction of her PCP. She was doing relatively well in the ER. A work-up was initiated. She had an unremarkable CBC. Mild dehydration on chemistry panel. Patient was hydrated. Coags and troponin were negative. Patient's ECG did not reveal any acute findings. Urinalysis pending. Given the strokelike symptoms she will need further management in the hospital. Consultation was made with the [facility] Hospitalist service. Patient was evaluated in the ER and admitted for further management. Triage Nursing notes reviewed and agree them. Vital Signs: reviewed and remarkable for no significant abnormalities Differential diagnosis: CVA, TIA, infection, dehydration, metabolic abnormality, hypo/hyperglycemia, electrolyte disturbance, anemia, hypoxia, cardiac sources, intracerebral event, toxicologic, neurologic, as well as other pathologies. Diagnostics interpreted by me: ECG: Twelve-lead ECG reveals a normal sinus rhythm at [address] No ST elevation or depression. Normal axis. Cardiac Monitoring: Cardiac monitoring ordered by me: The patient was placed on continuous cardiac monitoring and observed. It revealed a normal sinus rhythm at 71 beats per minute without ectopy or evidence of dysrhythmia. Imaging studies: CT angiography of the head and neck negative for acute process. I refer you to the EMR for further details. Chest x-ray. Findings: A chest x-ray was performed and revealed no pneumothorax, effusion, infiltrate, pulmonary edema, free air under the diaphragm, or wide mediastinum. Impression: No acute disease. HPI: The patient is a 81 year old female who presents to the Emergency Room with complaints of strokelike symptoms. This started 2 days ago and is persisting. Patient has had some issues with leaning to the right and has had multiple falls. The patient also notes the following associated symptoms, poor appetite. The patient has taken no medication for relieving factors. Current pain is rated as 0/10. Patient does not feel like she was injured from the falls. Contacted her primary office today and was directed to the ER for further management. Pt denies LOC, headache, fevers, chills, diaphoresis, visual changes, neck pain, chest pain, breathing difficulties, nausea, vomiting, abdominal pain, back pain, melena, hematochezia, urinary symptoms, numbness, lymphadenopathy, rash, or other complaints. ROS: See above HPI for pertinent positives & negatives. A total of 10 systems reviewed and were otherwise negative. PAST MEDICAL HISTORY:See Below , Parkinson's disease PAST SURGICAL HISTORY:See Below, deep brain stimulator FAMILY HISTORY:See Below SOCIAL HISTORY:See Below, retired HOME MEDICATIONS:See Below ALLERGIES:See Below VITALS:See Below PHYSICAL EXAMINATION: GENERAL: Awake, alert, well-appearing, in no distress HENT: Normocephalic, atraumatic. Oropharynx unremarkable. EYES: Normal conjunctiva. Sclera non-icteric. NECK: Inspection normal. Non-tender. Supple. No nuchal rigidity. FROM. No masses. RESPIRATORY: Clear to auscultation. No wheezes. No rales. Normal respiratory effort. CARDIAC: Normal rate. Normal rhythm. 2+ murmur heard best at the left sternal border. No rubs. Extremities warm and well perfused. Pulses equal. No JVD. GI: Soft, non-distended. No tenderness to palpation. No rebound or guarding. No masses. RECTAL: Deferred. MUSCULOSKELETAL: Atraumatic. Chest examination reveals no tenderness. The back is symmetrical on inspection without obvious abnormality. There is no CVA tenderness to palpation. No joint edema. LOWER EXTREMITIES: Calves are equal size bilaterally and non-tender. No edema. No discoloration. NEURO: Normal sensorium. No sensory or motor deficits noted. No drift. Normal rapid alternating movements. SKIN: No rash or jaundice noted. Eddi Cox MD Past Med/Surg History Medical History (Updated 04/14/22 @ 20:31 by Eddi Cox MD) Hyperlipidemia Hypertension One time episode- no longer has HTN Recent orthostatic hypotension - seen in ER on 03/26/21- was taken off Amlodipine Kidney stones Mitral valve prolapse follows with [facility] Cardiology ([facility]) Nausea and vomiting after administration of anesthetic agent Nephrolithiasis Parkinsons disease Follows with neuro - [facility] On four week trial with brain stimulator with changing rates Presence of brain neurostimulator device Vitamin D deficiency Surgical History History of cardiac cath ~. no stents. History of cataract surgery bilateral History of colonoscopy S/P insertion of brain-responsive neurostimulation device Deep brain stimulation. December 2020, [facility]. Placed for Parkinson's Disease. Advised to bring any remotes/manuals to hospital for surgery S/P ARNAUD (total abdominal hysterectomy) with RSO S/P tendon repair Left tricep tendon repair Family History Other No family history of adverse response to anesthesia Social History Smoking Status: Never smoker Second Hand Exposure: No; Hx Alcohol Use: No Hx Substance Use: No Preferred Language: Turkish Communication Ability: Effective Booking Supervisor Required: No Beliefs That Will Affect Care: None Current Living Situation: Spouse Feels Safe at Home: Yes Assistive Devices: None Allergies Allergies Allergy/AdvReac Type Severity Reaction Status Date / Time No Known Allergies Allergy Verified 06/25/21 13:19 Home Meds Home Medications Medication Instructions Recorded Confirmed amantadine HCl 100 mg capsule 100 mg PO BID 09/04/20 06/25/21 aspirin 81 mg chewable tablet 81 mg PO QPM 09/04/20 06/25/21 carbidopa ER 48.75 mg-levodopa 195 See Rx Instructions .Route .COMPLEX 09/04/20 06/25/21 mg capsule,extended release (Rytary) simvastatin 20 mg tablet 20 mg PO HS 09/04/20 06/25/21 furosemide 20 mg tablet 20 mg PO MOWEFR 01/23/21 06/25/21 acetaminophen 325 mg tablet 650 mg PO Q4H 03/26/21 06/25/21 (Tylenol) carboxymethylcellulose sodium 0.5 1 drp ophthalmic (eye) HS 03/26/21 06/25/21 % eye drops in a dropperette (Refresh Plus) tramadol 50 mg tablet 50 mg PO Q6H PRN Pain 03/26/21 06/25/21 gabapentin 400 mg capsule 200 mg PO HS 06/25/21 06/25/21 sertraline [Zoloft] PO BID 06/25/21 06/25/21 Results & Data (ED) Vital Signs Vital Signs - 24 hr 04/14/22 18:04 04/14/22 19:56 04/14/22 20:00 Temperature 36.8 C Temperature Source Temporal Artery Scan Pulse Rate 76 74 71 Pulse Rate from SpO2 Sensor 75 71 Respiratory Rate 18 24 19 Blood Pressure 165/72 H 186/64 H 172/70 H Blood Pressure Mean 103 104 104 Pulse Oximetry 98 100 100 Oxygen Delivery Method Room Air Room Air Room Air Sepsis Recent Fever Within 48 Hours No Sepsis New/Unexplained Change in Mental Status No Sepsis Action Taken by Nursing No Action Required Laboratory Data Result diagrams: 04/14/22 18:37 04/14/22 18:37 Lab Results 04/14/22 04/14/22 04/14/22 Range/Units 18:37 18:37 18:37 WBC 5.12 (4.8-10.8) K/ul RBC 3.87 L (3.93-5.22) M/uL Hgb 11.8 L (12.0-16.0) g/dl POC Hgb (12.0-16.0) g/dl Hct 36.2 (34.1-44.9) % POC Hct (37-47) % MCV 93.5 (80.0-100.0) fL MCH 30.5 (25.0-34.0) pg MCHC 32.6 (32.0-36.0) g/dL RDW Std Deviation 43.3 (36.4-46.3) fL RDW Coeff of Ara 12.7 (11.5-14.5) % Plt Count 196 (130-400) K/uL MPV 9.6 (9.4-12.3) fL Immature Gran % (Auto) 0.2 % Neut % (Auto) 62.4 % Lymph % (Auto) 22.7 % Donley % (Auto) 10.4 % Eos % (Auto) 3.9 % Baso % (Auto) 0.4 % Neut # (Auto) 3.20 (1.4-6.5) K/uL Lymph # (Auto) 1.16 L (1.2-3.4) K/uL Donley # (Auto) 0.53 (0.24-0.82) K/uL Eos # (Auto) 0.20 (0-0.50) K/uL Baso # (Auto) 0.02 (0-0.2) K/uL Immature Gran # (Auto) 0.01 (0.00-0.02) K/uL PT 10.6 (9.0-12.0) Seconds INR 1.0 (0.9-1.1) APTT 24.9 (21.0-31.0) Seconds PTT Ratio 0.9 POC Sodium (135-144) mmol/L Sodium 140 (136-145) mmol/L POC Potassium (3.3-5.0) mmol/L Potassium 3.8 (3.5-5.1) mmol/L POC Chloride (101-112) mmol/L Chloride 107 (98-107) mmol/L Carbon Dioxide 24 (21-32) mmol/L POC Total CO2 (24-31) mmol/L Anion Gap 9 (3-11) POC Anion Gap (16-25) mmol/L POC BUN (7-18) mg/dl BUN 37 H (6-23) mg/dl Creatinine 1.47 H (0.6-1.2) mg/dl POC Creatinine (0.6-1.3) mg/dl Est Cr Clr Drug Dosing 24.9 ml/min Est GFR ( Amer) 38.7 ml/min Est GFR (Non-Af Amer) 33.4 ml/min BUN/Creatinine Ratio 25.2 H (10-20) Glucose 119 H (70-99(Fasting)) mg/dl POC Glucose (70-99) mg/dl POC Glucose (other) (70-99) mg/dl Calcium 8.7 (8.5-10.1) mg/dl POC Ioniz Calcium Lee (1.12-1.32) mmol/l Magnesium 1.9 (1.7-2.4) mg/dl Total Bilirubin 0.5 (0.2-1.0) mg/dl AST 17 (13-39) U/L ALT 3 L (7-52) U/L Alkaline Phosphatase 90 (34-104) U/L Troponin I High Sens 6.4 (0-14) pg/ml Total Protein 6.4 (6.0-8.3) gm/dl Albumin 4.0 (3.4-5.0) gm/dl Globulin 2.4 L (2.5-4.0) gm/dl Albumin/Globulin Ratio 1.7 (0.9-2) 04/14/22 04/14/22 Range/Units 18:57 19:06 WBC (4.8-10.8) K/ul RBC (3.93-5.22) M/uL Hgb (12.0-16.0) g/dl POC Hgb 12.6 (12.0-16.0) g/dl Hct (34.1-44.9) % POC Hct 37 (37-47) % MCV (80.0-100.0) fL MCH (25.0-34.0) pg MCHC (32.0-36.0) g/dL RDW Std Deviation (36.4-46.3) fL RDW Coeff of Ara (11.5-14.5) % Plt Count (130-400) K/uL MPV (9.4-12.3) fL Immature Gran % (Auto) % Neut % (Auto) % Lymph % (Auto) % Donley % (Auto) % Eos % (Auto) % Baso % (Auto) % Neut # (Auto) (1.4-6.5) K/uL Lymph # (Auto) (1.2-3.4) K/uL Donley # (Auto) (0.24-0.82) K/uL Eos # (Auto) (0-0.50) K/uL Baso # (Auto) (0-0.2) K/uL Immature Gran # (Auto) (0.00-0.02) K/uL PT (9.0-12.0) Seconds INR (0.9-1.1) APTT (21.0-31.0) Seconds PTT Ratio POC Sodium 143 (135-144) mmol/L Sodium (136-145) mmol/L POC Potassium 3.8 (3.3-5.0) mmol/L Potassium (3.5-5.1) mmol/L POC Chloride 106 (101-112) mmol/L Chloride (98-107) mmol/L Carbon Dioxide (21-32) mmol/L POC Total CO2 24 (24-31) mmol/L Anion Gap (3-11) POC Anion Gap 18.0 (16-25) mmol/L POC BUN 32 H (7-18) mg/dl BUN (6-23) mg/dl Creatinine (0.6-1.2) mg/dl POC Creatinine 1.5 H (0.6-1.3) mg/dl Est Cr Clr Drug Dosing ml/min Est GFR ( Amer) ml/min Est GFR (Non-Af Amer) ml/min BUN/Creatinine Ratio (10-20) Glucose (70-99(Fasting)) mg/dl POC Glucose 118 H (70-99) mg/dl POC Glucose (other) 120 H (70-99) mg/dl Calcium (8.5-10.1) mg/dl POC Ioniz Calcium Lee 1.19 (1.12-1.32) mmol/l Magnesium (1.7-2.4) mg/dl Total Bilirubin (0.2-1.0) mg/dl AST (13-39) U/L ALT (7-52) U/L Alkaline Phosphatase (34-104) U/L Troponin I High Sens (0-14) pg/ml Total Protein (6.0-8.3) gm/dl Albumin (3.4-5.0) gm/dl Globulin (2.5-4.0) gm/dl Albumin/Globulin Ratio (0.9-2) Administered Medications Discontinued Medications Ioversol (Optiray 320 125ml) 120 ml IV ONCE ONE Stop: 04/14/22 19:39 Last Admin: 04/14/22 19:42 Dose: 120 ml Documented By: [facility] Imaging Data Radiologist's Impression: Head CT 04/14/22 18:[address] OF THE BRAIN; CT ANGIOGRAM OF THE BRAIN; CT ANGIOGRAM OF THE NECK CLINICAL HISTORY: Strokelike symptoms. Falls. Dizziness. Slurred speech. Anderson ucinations. COMPARISON STUDY: CT of the brain dated 03/06/2021. TECHNIQUE: Unenhanced axial CT scan of the brain is performed. Subsequently, following the IV administration of 101 of Optiray 320, CT angiogram of the head and neck was performed from the aortic arch to the vertex. Images are reviewed in the axial, sagittal, and coronal planes. 3-D MIPS images are created and assessed. IV contrast was administered without complication. All measurements were calculated based on NASCET criteria. A dose lowering technique was utilized adhering to the principles of ALARA. Findings examination is degraded by streak artifact from intracranial electrodes. CT DOSE: 973.06 mGy.cm FINDINGS: Brain parenchyma: There is age-related involutional change noting mild subcortical and periventricular microangiopathic disease. Electrodes from a bifrontal approach terminate in the basal ganglia bilaterally. These are unchanged in position from previous. There is no hemorrhage, mass effect, or evidence of acute territorial ischemia by CT criteria. There is no evidence of enhancing mass lesion on the angiogram phase images. The ventricles, sulci, and cisterns are prominent secondary to involutional change. Batista-white matter differentiation is preserved. No extra-axial fluid collection is seen. Thoracic aorta: Visualized portions of the thoracic aorta are normal in caliber. The aortic arch demonstrates standard 3-vessel anatomy. Right carotid arterial system: The right common carotid artery is widely patent, as are the right internal and external carotid arteries. Mild calcified plaque is noted in the carotid bulb. Left carotid arterial system: The left common carotid artery is widely patent, as are the left internal and external carotid arteries. Minimal calcified plaque is seen in the carotid bulb. Vertebral arteries: The vertebral arteries are widely patent bilaterally noting a right-sided dominance. Subclavian arteries: Patent bilaterally. Atherosclerotic plaque causes less than 50% luminal narrowing of the left subclavian artery below the thoracic outlet. Intracranial vasculature: There is atherosclerotic calcification of the cavernous carotid and vertebral arteries. The [place] is develo pmentally complete. The internal carotid arteries are patent at the skull base, as are the anterior and middle cerebral arteries bilaterally. The vertebrobasilar system and posterior cerebral arteries are widely patent. The right vertebral artery is dominant. There is no aneurysm, high-grade stenosis, or focal vessel cut off seen throughout the intracranial circulation. Jugular veins: Patent bilaterally. Dural sinuses: Patent. Lung apices: Partially visualized upper lobe lung parenchyma appears clear. Soft tissues: The visualized pharyngeal soft tissues are normal in appearance noting angiographic phase technique. The oropharyngeal airway appears widely patent. There is a heterogeneous thyroid goiter. The salivary glands are normal in appearance. No cervical lymphadenopathy is seen. Skeletal structures: The skeletal structures are osteopenic. There are bilateral frontal santiago holes. The calvarium otherwise appears intact. The cervical spine is maintained noting multilevel spondylosis. No lytic or blastic lesion is seen. Orbits: The bony orbits are intact. Orbital contents are normal as visualized noting bilateral ocular lens implant. Sinuses and mastoids: The paranasal sinuses are clear. The mastoid air cells are well pneumatized. IMPRESSION: 1. There is no hemorrhage, mass effect, or evidence of acute territorial ischemia by CT criteria. 2. Intracranial electrodes are unchanged from previous. 3. Unremarkable CT angiogram of the brain. 4. Unremarkable CT angiogram of the neck. ACT 112: Negative or not required by law. Electronically signed by: Eddie Katz M.D. 04/14/2022 7:57 PM Head CTA 04/14/22 18:[address] OF THE BRAIN; CT ANGIOGRAM OF THE BRAIN; CT ANGIOGRAM OF THE NECK CLINICAL HISTORY: Strokelike symptoms. Falls. Dizziness. Slurred speech. Hallucinations. COMPARISON STUDY: CT of the brain dated 03/06/2021. TECHNIQUE: Unenhanced axial CT scan of the brain is performed. Subsequently, following the IV administration of 101 of Optiray 320, CT angiogram of the head and neck was performed from the aortic arch to the vertex. Images are reviewed in the axial, sagittal, and coronal planes. 3-D MIPS images are created and assessed. IV contrast was administered without complication. All measurements were calculated based on NASCET criteria. A dose lowering technique was utilized adhering to the principles of ALARA. Findings examination is degraded by streak artifact from intracranial electrodes. CT DOSE: 973.06 mGy.cm FINDINGS: Brain parenchyma: There is age-related involutional change noting mild subcortical and periventricular microangiopathic disease. Electrodes from a bifrontal approach terminate in the basal ganglia bilaterally. These are unchanged in position from previous. There is no hemorrhage, mass effect, or evidence of acute territorial ischemia by CT criteria. There is no evidence of enhancing mass lesion on the angiogram phase images. The ventricles, sulci, and cisterns are prominent secondary to involutional change. Batista-white matter differentiation is preserved. No extra-axial fluid collection is seen. Thoracic aorta: Visualized portions of the thoracic aorta are normal in caliber. The aortic arch demonstrates standard 3-vessel anatomy. Right carotid arterial system: The right common carotid artery is widely patent, as are the right internal and external carotid arteries. Mild calcified plaque is noted in the carotid bulb. Left carotid arterial system: The left common carotid artery is widely patent, as are the left internal and external carotid arteries. Minimal calcified plaque is seen in the carotid bulb. Vertebral arteries: The vertebral arteries are widely patent bilaterally noting a right-sided dominance. Subclavian arteries: Patent bilaterally. Atherosclerotic plaque causes less than 50% luminal narrowing of the left subclavian artery below the thoracic outlet. Intracranial vasculature: There is atherosclerotic calcification of the cavernous carotid and vertebral arteries. The [place] is developmentally complete. The internal carotid arteries are patent at the skull base, as are the anterior and middle cerebral arteries bilaterally. The vertebrobasilar system and posterior cerebral arteries are widely patent. The right vertebral artery is dominant. There is no aneurysm, high-grade stenosis, or focal vessel cut off seen throughout the intracranial circulation. Jugular veins: Patent bilaterally. Dural sinuses: Patent. Lung apices: Partially visualized upper lobe lung parenchyma appears clear. Soft tissues: The visualized pharyngeal soft tissues are normal in appearance noting angiographic phase technique. The oropharyngeal airway appears widely patent. There is a heterogeneous thyroid goiter. The salivary glands are normal in appearance. No cervical lymphadenopathy is seen. Skeletal structures: The skeletal structures are osteopenic. There are bilateral frontal santiago holes. The calvarium otherwise appears intact. The cervical spine is maintained noting multilevel spondylosis. No lytic or blastic lesion is seen. Orbits: The bony orbits are intact. Orbital contents are normal as visualized noting bilateral ocular lens implant. Sinuses and mastoids: The paranasal sinuses are clear. The mastoid air cells are well pneumatized. IMPRESSION: 1. There is no hemorrhage, mass effect, or evidence of acute territorial isch emia by CT criteria. 2. Intracranial electrodes are unchanged from previous. 3. Unremarkable CT angiogram of the brain. 4. Unremarkable CT angiogram of the neck. ACT 112: Negative or not required by law. Electronically signed by: Eddie Katz M.D. 04/14/2022 7:57 PM Neck CTA 04/14/22 18:[address] OF THE BRAIN; CT ANGIOGRAM OF THE BRAIN; CT ANGIOGRAM OF THE NECK CLINICAL HISTORY: Strokelike symptoms. Falls. Dizziness. Slurred speech. Hallucinations. COMPARISON STUDY: CT of the brain dated 03/06/2021. TECHNIQUE: Unenhanced axial CT scan of the brain is performed. Subsequently, following the IV administration of 101 of Optiray 320, CT angiogram of the head and neck was performed from the aortic arch to the vertex. Images are reviewed in the axial, sagittal, and coronal planes. 3-D MIPS images are created and assessed. IV contrast was administered without complication. All measurements were calculated based on NASCET criteria. A dose lowering technique was utilized adhering to the principles of ALARA. Findings examination is degraded by streak artifact from intracranial electrodes. CT DOSE: 973.06 mGy.cm FINDINGS: Brain parenchyma: There is age-related involutional change noting mild subcortical and periventricular microangiopathic disease. Electrodes from a bifrontal approach terminate in the basal ganglia bilaterally. These are unchanged in position from previous. There is no hemorrhage, mass effect, or evidence of acute territorial ischemia by CT criteria. There is no evidence of enhancing mass lesion on the angiogram phase images. The ventricles, sulci, and cisterns are prominent secondary to involutional change. Batista-white matter differentiation is preserved. No extra-axial fluid collection is seen. Thoracic aorta: Visualized portions of the thoracic aorta are normal in caliber. The aortic arch demonstrates standard 3-vessel anatomy. Right carotid arterial system: The right common carotid artery is widely patent, as are the right internal and external carotid arteries. Mild calcified plaque is noted in the carotid bulb. Left carotid arterial system: The left common carotid artery is widely patent, as are the left internal and external carotid arteries. Minimal calcified plaque is seen in the carotid bulb. Vertebral arteries: The vertebral arteries are widely patent bilaterally noting a right-sided dominance. Subclavian arteries: Patent bilaterally. Atherosclerotic plaque causes less than 50% luminal narrowing of the left subclavian artery below the thoracic outlet. Intracranial vasculature: There is atherosclerotic calcification of the cavernous carotid and vertebral arteries. The [place] is developmentally complete. The internal carotid arteries are patent at the skull base, as are the anterior and middle cerebral arteries bilaterally. The vertebrobasilar system and posterior cerebral arteries are widely patent. The right vertebral artery is dominant. There is no aneurysm, high-grade stenosis, or focal vessel cut off seen throughout the intracranial circulation. Jugular veins: Patent bilaterally. Dural sinuses: Patent. Lung apices: Partially visualized upper lobe lung parenchyma appears clear. Soft tissues: The visualized pharyngeal soft tissues are normal in appearance noting angiographic phase technique. The oropharyngeal airway appears widely patent. There is a heterogeneous thyroid goiter. The salivary glands are normal in appearance. No cervical lymphadenopathy is seen. Skeletal structures: The skeletal structures are osteopenic. There are bilateral frontal santiago holes. The calvarium otherwise appears intact. The cervical spine is maintained noting multilevel spondylosis. No lytic or blastic lesion is seen. Orbits: The bony orbits are intact. Orbital contents are normal as visualized noting bilateral ocular lens implant. Sinuses and mastoids: The paranasal sinuses are clear. The mastoid air cells are well pneumatized. IMPRESSION: 1. There is no hemorrhage, mass effect, or evidence of acute territorial ischemia by CT criteria. 2. Intracranial electrodes are unchanged from previous. 3. Unremarkable CT angiogram of the brain. 4. Unremarkable CT angiogram of the neck. ACT 112: Negative or not required by law. Electronically signed by: Eddie Katz M.D. 04/14/2022 7:57 PM Discharge Plan Visit Data Chief Complaint: Stroke/CVA Symptoms Stated Complaint: FELL, HALLUCINATIONS, SLURRED SPEECH, LEANS RIGHTS ED Provider: Eddi Cox Discharge Problem: Stroke-like symptoms Forms Stand Alone Forms: My [facility] Sharon Aprimo Prescriptions Prescriptions: No Action sertraline [Zoloft] PO BID amantadine HCl 100 mg capsule 100 mg PO BID simvastatin 20 mg tablet 20 mg PO HS aspirin 81 mg Tablet,Chewable 81 mg PO QPM Rytary 48.75-195 mg capsule, extended release See Rx Instructions .ROUTE .COMPLEX Rx Instructions: TAKE 2 CAPS QAM, 1 CAP IN THE AFTERNOON, AND 1 CAP IN THE EVENING doses 5 hours apart gabapentin 400 mg capsule 200 mg PO HS acetaminophen [Tylenol] 325 mg Tablet 650 mg PO Q4H tramadol 50 mg tablet 50 mg PO Q6H PRN (Reason: Pain) furosemide 20 mg tablet 20 mg PO MOWEFR Rx Instructions: take daily on thursday,thursday & thursday...may take an additional tablet for shortness of breath Refresh Plus 0.5 % Dropperette 1 drp OPHTHALMIC (EYE) HS Referrals Referrals: Jose Colindres MD [Primary Care Provider] -
[2022-04-14] MEDS ORDERED: SODIUM CHLORIDE 0.9% 1000ML 1,000 ML IV STA (20:34)
--- NOTE | 2022-04-14 21:14 | XRay Report ---
SINGLE VIEW CHEST CLINICAL HISTORY: Strokelike symptoms. FINDINGS: An AP, portable, upright chest radiograph is compared to study dated 03/26/2021. An electron ic device projects over the left lower chest with leads extending into the left neck. The heart is to p normal for projection noting atherosclerotic calcification of the thoracic aorta. The pulmonary vas culature is noncongested. Chronic interstitial thickening is similar to previous. The lungs and pleur al spaces are clear. No pneumothorax is seen. The skeletal structures are osteopenic. The bony thorax is grossly intact. IMPRESSION: No active disease in the chest. ACT 112: Negative or not required by law. Electronically signed by: Eddie Katz M.D. 04/14/2022 9:13 PM
--- NOTE | 2022-04-14 23:41 | History and Physical Report ---
DATE OF ADMISSION: 04/14/2022. CHIEF COMPLAINT: Stroke-like symptoms. HISTORY OF PRESENT ILLNESS: An 81-year-old female with past medical history significant for hyperlipidemia, prediabetes, chronic diastolic CHF due to valvular heart disease, nonrheumatic aortic valve insufficiency, tricuspid valve regurgitation, mitral regurgitation, orthostatic hypotension, pulmonary hypertension, hypertension , history of kidney stones on the left side, history of chronic kidney disease stage III, restless legs syndrome, Parkinson's disease, sicca syndrome, positive ZARA antibody, , who lives at home, presents with stroke-like symptoms. The patient has history of frequent falling, dropping down as per records, but lately she is falling more. She fell 3 times recently and at one time, she hit the head on the wall. Since then she is having on and off visual hallucinations and she is having slurred speech and leaning to right side while ambulating Her slurred speech improved, but with her ongoing symptoms, she came to the hospital. Currently, denies any headache. As per when she has this episode, she just stares for about a minute, but no loss of consciousness. She has a history of loss of consciousness and falling down in the past. She always has some runny nose, no earache, no sore throat, no cough, no difficulty swallowing. No chest pain. Has some shortness of breath on exertion. No nausea, no vomiting, no abdominal pain. Normal bowel and bladder movements. No swelling in the legs. Currently, resting comfortably and hemodynamically stable. ALLERGIES: No known drug allergies. PAST MEDICAL HISTORY: As mentioned above. PAST SURGICAL HISTORY: Cardiac catheterization, colonoscopy, colonoscopy with biopsy, repair of the right elbow tendon, laparoscopic surgical lysis of adhesions, partial hysterectomy, left ureteroscopy, aspiration and left stent placement, cataract surgeries. MEDICATIONS: The patient is on Tylenol 650 mg p.o. q.4 hours p.r.n., amantadine 100 mg p.o. b.i.d., Refresh eye drops at bedtime, Lasix 20 mg p.o. daily p.r.n., Seroquel 50 mg p.o. at bedtime, Rytary 48.75/195 mg 4 tablets a.m., 1 capsule in the afternoon, 1 capsule in the evening, and simvastatin 20 mg p.o. at bedtime. FAMILY HISTORY: Significant for mother had arthritis, UT; father had UT; brother has melanoma; sister has melanoma; brother has UT. SOCIAL HISTORY: . No smoking. Alcohol rarely. No drug use. REVIEW OF SYSTEMS: As per HPI. Rest of the review of systems is negative. PHYSICAL EXAMINATION: GENERAL: The patient is thin and frail, not in acute distress. VITAL SIGNS: Temperature 36.8, pulse 71, respiratory rate 19, blood pressure 172/70, oxygen 100% on room air. HEENT: Pupils equal, round and reactive to light. Oral mucosa moist. NECK: No JVD, no neck masses. CARDIOVASCULAR: S1 and S2 heard. Regular rate and rhythm. No murmur, no gallop. RESPIRATORY SYSTEM: Normal AP diameter. No accessory muscle use. No wheezing or crackles. ABDOMEN: Soft, bowel sounds present, nontender, no distention. CENTRAL NERVOUS SYSTEM: Alert and oriented. Speech is clear. No facial droop. Extraocular muscles intact. Power 4/5 in all extremities. Sensation is intact. No pronator drift. Coordination of movements normal. EXTREMITIES: No edema, no erythema. LABORATORY DATA: WBC 5.1, hemoglobin 11.8, hematocrit 36.2, platelets 196. PT 10.6, INR 1, APTT 24.9. Sodium 140, potassium 3.8, chloride 107, CO2 of 24, BUN 37, creatinine 1.4, serum glucose 109, calcium 8.7, magnesium 1.9, total bilirubin 0.5, AST 17, ALT 30, alkaline phosphatase 90. Troponin I high sensitivity 6.4. Urinalysis negative. CTA of the head and neck: No acute findings. CT of the head: No acute findings. Chest x-ray: No active disease in the chest. EKG: Normal sinus rhythm at a rate of 68, nonspecific ST-T abnormalities seen. ASSESSMENT AND PLAN: An 81-year-old female who presents with stroke-like symptoms. 1. Stroke-like symptoms. The patient was falling frequently and she was leaning on the right side while ambulating , sice she hit her had to wall having visual hallucinations on and off and an episode of slurred speech. Slurred speech improved. Visual hallucinations are on and off. Initial workup with CT of the head and CTA of the head and neck is negative. Reviewing the records, it looks like she has deep brain stimulator for Parkinson's. We will consult Neurology in the a.m. We will also do EEG studies, echocardiogram. Monitor in the telemetry floor. 2. History of Parkinson's. Continue home medications for now. Await Neurology input. 3. History of syncope and possible seizures. Getting EEG stat and echocardiogram. Monitor in telemetry. 4. History of orthostatic hypotension. We will check orthostatics. Cardiology was recommending midodrine if needed. 5. Chronic diastolic congestive heart failure and valvular heart disease. On Lasix as needed. 6. Deep venous thrombosis prophylaxis, sequential compression devices for now. DISPOSITION: Closely monitor in the tele floor. Level 1, full code. Expect to discharge home and follow up with family doctor. Job ID: [id number] MTDD
[2022-04-14] MEDS ORDERED: PHARMACIST DISCHARGE MED REC CONSULT PRN (23:53)
[2022-04-14] MEDS ORDERED: ACETAMINOPHEN 325 MG TAB PO PRN (23:53)
[2022-04-14] MEDS ORDERED: POLYETHYLENE (MIRALAX) 17 GM PACK PO PRN (23:53)
[2022-04-14] MEDS ORDERED: SODIUM CHLORIDE 0.9% 1000ML 1,000 ML IV SCH (23:53)
[2022-04-15] MEDS ORDERED: LABETALOL HCL IV 5 MG/ML 20ML IV PRN (00:43)
[2022-04-15] MEDS ORDERED: FUROSEMIDE 20 MG TAB PO PRN (00:45)
[2022-04-15] MEDS: AMANTADINE HCL 100 MG CAPSULE PO SCH ×2 (01:56→08:55)
[2022-04-15] MEDS: QUEtiapine FUMARATE 25 MG TABLET PO SCH ×2 (01:56→20:53)
[2022-04-15 07:04] LABS: Basophils # (auto) 0.04 K/uL (0-0.2); Basophils % (auto) 0.8 %; Eosinophils # (auto) 0.22 K/uL (0-0.50); Eosinophils % (auto) 4.6 %; Hematocrit (blood only) 35.9 % (34.1-44.9); Hemoglobin 11.6 g/dl (12.0-16.0); Immature Granulocytes # (auto) 0.02 K/uL (0.00-0.02); Immature Granulocytes % (auto) 0.4 %; Lymphocytes # (auto) 1.83 K/uL (1.2-3.4); Lymphocytes % (auto) 38.2 %; Mean Corpuscular Hemoglobin 30.1 pg (25.0-34.0); Mean Corpuscular Hgb Conc 32.3 g/dL (32.0-36.0); Mean Platelet Volume 9.4 fL (9.4-12.3); Monocytes % (auto) 10.4 %; Neutrophils # (auto) 2.18 K/uL (1.4-6.5); Neutrophils % (auto) 45.6 %; Platelet Count 199 K/uL (130-400); RDW Coefficient of Variation 12.8 % (11.5-14.5); RDW Standard Deviation 43.2 fL (36.4-46.3); Red Blood Count 3.86 M/uL (3.93-5.22); White Blood Count 4.79 K/ul (4.8-10.8)
[2022-04-15 07:38] LABS: BUN Creatinine Ratio 23.2 (10-20); Calcium 8.5 mg/dl (8.5-10.1); Chol HDL Ratio 2.5 (0-5); Creatinine Clr Calc Pharmacy 27.2 ml/min; Est GFR (Non-African American) 40.6 ml/min; Potassium 3.3 mmol/L (3.5-5.1)
[2022-04-15 07:42] LABS: Estimated Average Glucose 123 mg/dl; Hemoglobin A1C 5.9 % (4.5-5.6)
--- NOTE | 2022-04-15 08:13 | CT Scan Report ---
CT SCAN OF THE BRAIN WITHOUT IV CONTRAST CLINICAL HISTORY: Strokelike symptoms. COMPARISON STUDY: CT of the brain dated 04/14/2022. TECHNIQUE: Unenhanced axial CT scan of the brain is performed from the vertex to the skull base. A do se lowering technique was utilized adhering to the principles of ALARA. The examination is degraded b y streak artifact from intracranial electrodes. FINDINGS: Brain parenchyma: Intracranial electrodes from a bifrontal approach terminate in the basal ganglia. T here are age-related involutional changes noting mild subcortical and periventricular microangiopath ic change. There is no hemorrhage, mass effect, or evidence of acute territorial ischemia by CT crite brock. Batista-white matter differentiation is preserved. No extra-axial fluid collection is seen. Ventricles, sulci, cisterns: Prominent secondary to involutional change. Intracranial vasculature: There is atherosclerotic calcification of the cavernous carotid interverteb ral arteries. Calvarium: The skeletal structures are osteopenic. There are bifrontal santiago holes with intracranial e lectrodes identified. Sinuses and mastoids: The visualized paranasal sinuses are clear. The mastoid air cells are well pneu matized. Orbits: The bony orbits are grossly intact. There are bilateral ocular lens implants. IMPRESSION: There is no hemorrhage, mass effect, or evidence of acute territorial ischemia by CT crit eria. No change from yesterday. ACT 112: Negative or not required by law. Electronically signed by: Eddie Katz M.D. 04/15/2022 8:12 AM
[2022-04-15] MEDS ORDERED: POTASSIUM CHLORIDE CRTAB 20 MEQ TABCR PO ONE (10:12)
[2022-04-15] MEDS: CARBIDOPA/LEVODOPA 1 EACH CAPSULE.ER PO SCH (16:50)
--- NOTE | 2022-04-15 17:07 | Electrocardiogram Report ---
Test Reason : Blood Pressure : / mmHG Vent. Rate : 068 BPM Atrial Rate : 068 BPM P-R Int : 130 ms QRS Dur : 082 ms QT Int : 336 ms P-R-T Axes : 071 -03 070 degrees QTc Int : 357 ms Normal sinus rhythm Possible Left atrial enlargement Nonspecific T wave abnormality Abnormal ECG When compared with ECG of 27-MAR-2021 14:50, Nonspecific T wave abnormality, worse in Lateral leads QT has shortened Confirmed by Fede Mclean ([id number]) on 04/15/2022 5:07:17 PM Referred By: REFERRED SELF Confirmed By:Fede Mclean
--- NOTE | 2022-04-15 17:46 | Electroencephalogram ---
EEG Procedure Note Date of Service April 15, 2022 Start / End Times Start Time: 12:24 End Time: 12:44 Referring Physician Rei Clarke MD History An 81 year old female with stroke like symptoms. EEG performed for evaluation of epileptiform activity. Home Medication List Medication Instructions Recorded Confirmed Type amantadine HCl 100 mg capsule 100 mg PO BID 09/04/20 04/14/22 History carbidopa ER 48.75 mg-levodopa 195 See Rx Instructions .Route .COMPLEX 09/04/20 04/14/22 History mg capsule,extended release (Rytary) simvastatin 20 mg tablet 20 mg PO HS 09/04/20 04/14/22 History furosemide 20 mg tablet 20 mg PO DAILY PRN wt gain 01/23/21 04/14/22 History acetaminophen 325 mg tablet 650 mg PO Q4H 03/26/21 04/14/22 History (Tylenol) carboxymethylcellulose sodium 0.5 1 drp ophthalmic (eye) 03/26/21 04/14/22 History % eye drops in a dropperette (Refresh Plus) quetiapine 25 mg tablet 50 mg PO 04/14/22 04/14/22 History Inpatient Medication List Amantadine HCl (Amantadine Hcl 100 Mg Capsule) 100 mg PO Q2D@0900 [facility]; Protocol Stop: 05/15/22 00:44 Last Admin: 04/15/22 08:55 Dose: 100 mg Documented By: Admin: 04/15/22 01:56 Dose: 100 mg Documented By: RAFA Carbidopa/Levodopa (Carbidopa/Levodopa 1 Each Capsule.Er) 1 each PO BID@1200,1700 [facility] Stop: 05/15/22 16:59 Last Admin: 04/15/22 16:50 Dose: 1 each Documented By: DEEPAK Labetalol HCl (Labetalol Hcl Iv 5 Mg/Ml 20ml) 10 mg IV Q4H PRN PRN Reason: Hypertension Stop: 05/15/22 00:42 Last Admin: 04/15/22 01:10 Dose: 10 mg Documented By: RAFA Co-signed By: GREGORIA Quetiapine Fumarate (Quetiapine Fumarate 25 Mg Tablet) 50 mg PO [facility] Stop: 05/15/22 00:44 Last Admin: 04/15/22 01:56 Dose: 50 mg Documented By: PW Discontinued Medications Sodium Chloride (Nss 1000ml) 1,000 mls @ 125 mls/hr IV .Q8H STA Stop: 04/15/22 04:33 Last Infusion: 04/15/22 01:02 Dose: 0 mls/hr Documented By: Infusion: 04/15/22 01:01 Dose: 0 mls/hr Documented By: Admin: 04/14/22 21:01 Dose: 125 mls/hr Documented By: DAVIS Sodium Chloride (Nss 1000ml) 1,000 mls @ 75 mls/hr IV .[id number] [facility]AT[facility] Stop: 04/15/22 13:12 Last Infusion: 04/15/22 13:50 Dose: 0 mls/hr Documented By: Admin: 04/15/22 00:25 Dose: 75 mls/hr Documented By: RAFA Ioversol (Optiray 320 125ml) 120 ml IV ONCE ONE Stop: 04/14/22 19:39 Last Admin: 04/14/22 19:42 Dose: 120 ml Documented By: NASH Miscellaneous (Rytary 48.75-195mg - Order Awaiting Action) 1 each N/A QS [facility] Stop: 05/15/22 07:59 Last Admin: 04/15/22 13:52 Dose: 1 each Documented By: Admin: 04/15/22 08:58 Dose: Not Given Documented By: DEEPAK Potassium Chloride (Potassium Chloride Crtab 20 Meq Tabcr) 40 meq PO NOW ONE Stop: 04/15/22 10:13 Last Admin: 04/15/22 10:41 Dose: 40 meq Documented By: DEEPAK Description This is a 21 electrode EEG with a single channel dedicated to limited EKG. The electrodes were placed in accordance with the International 10-20 system. REPORT: At the onset of the EEG the patient is awake. The background is symmetric. The posterior dominant rhythm is 9 Hz, There is a normal anterior to posterior gradient with low amplitude faster frequencies in the frontal head region. No stage II sleep transients are seen. Drowsiness is characterized by increased theta activity and decreased myogenic artifact. Photic sitmulation does not induce any abnormaltiies. Interpretation IMPRESSION: This is a normal awake and drowsy routine EEG. No epileptiform activity is seen.
--- NOTE | 2022-04-15 18:57 | Hospitalist Progress Note ---
Date of Service April 15, 2022 Assessment & Plan (1) Falls frequently: Plan: Increased falls at home and she is now leaning toward the right side. No peripheral neuropathy. No evidence of acute infection such as UTI. Her BP readings do reveal presence of orthostatic hypotension which is likely related to her parkinson's diagnosis and has been ongoing. She denies any recent medication changes and remains on Sinemet TID. She also takes amantadine and seroquel. Weight loss is present on exam and she even notes that her DBS in her left anterior chest has changed. We discussed this is likely a result of her weight changes. She is tolerating PO and stroke workup overnight was negative. Neurology consulted and EEG performed. Pending further recommendations. (2) Parkinsons disease: Plan: Chronic, appears stable, cont current therapy. (3) HTN (hypertension): Plan: Elevated blood pressure with ongoing orthostatic hypotension. Cautious with medical management given the drop in BP with standing. Not on antihypertensive therapy. Will given prn medication at this time and cont to monitor. (4) CKD (chronic kidney disease), stage III: Plan: chronic, she is at her baseline creatinine (1.3). Cont to renally dose medications as needed and avoid nephrotoxic substances. (5) Moderate malnutrition: Plan: chronic weight 105lbs per outpatient records review for the past two years. Patient is cachectic-appearing on exam. Moderate malnutrition documented by nutrition assessment today. Boost, daily MVI, daily bowel regimen 2/2 constipation and assistance with meals as needed. (6) DVT prophylaxis: Plan: Heparin Full Code Dispo-to home pending Neurology recommendations. Anusha Montoya DO [facility] Hospitalist Admission and Anticipated Discharge Date Admission Date: April 14, 2022 Subjective 81-year-old female with known history of Parkinson's and orthostatic hypotension presents with recurrent falls that are increasing in frequency. She hit her head during one of the falls and a CT scan was negative for acute bleed or acute intracranial abnormality. Repeat CT head this morning was also negative for intracranial abnormality. Patient denies any pain or shortness of breath Worked with PT and OT today and they recommend she is good to go home Ambulates independently at baseline and uses a walker as needed. Denies any lightheadedness except when going from sitting to standing. Review of Systems Review of Systems: All systems reviewed negative except as indicated above. Physical Exam Physical Exam: CONSTITUTIONAL: thin, vitals as above, generally well- appearing, NAD EYES: normal conjunctivae, no scleral icterus ENT: external ear and nose normal, MMM NECK: trachea midline RESPIRATORY: clear to auscultation bilaterally, no crackles, rales or wheezes, normal respiratory effort CARDIOVASCULAR: regular rate and rhythm, S1 and 2 heard without murmurs, gallops or rubs, no JVD, no peripheral edema CHEST: inspection of chest was normal GASTROINTESTINAL: soft, nontender, ND, no guarding MUSCULOSKELETAL: strength 5/5 throughout, head is normocephalic and atraumatic, thin, frail appearing, muscle wasting is present. SKIN: warm and dry NEUROLOGIC: CN 2-12 grossly intact, no sensory deficit, normal cognition, normal speech, mild resting tremor PSYCHIATRIC: alert cooperative and oriented to person, place and time. Euthymic mood, makes good eye contact, language grossly intact, recent and remote memory grossly intact. LYMPHATIC: no LAD Results & Data Results & Data ([facility]) Vital Signs (Past 12 Hours) Vital Signs Temp Pulse Resp BP Pulse Ox O2 Del Method 04/15/22 16:00 36.5 C 79 18 162/63 H 100 Room Air 04/15/22 13:03 170/72 H 04/15/22 12:31 36.4 C L 61 18 196/65 H 99 Room Air 04/15/22 08:20 36.5 C 63 18 127/73 99 Room Air Laboratory Results Short CBC 04/14/22 04/15/22 Range/Units 18:37 06:41 WBC 5.12 4.79 L (4.8-10.8) K/ul Hgb 11.8 L 11.6 L (12.0-16.0) g/dl Hct 36.2 35.9 (34.1-44.9) % Plt Count 196 199 (130-400) K/uL BMP 04/14/22 04/15/22 18:37 06:41 Sodium 140 142 Potassium 3.8 3.3 L Chloride 107 107 Carbon Dioxide 24 26 BUN 37 H 29 H Creatinine 1.47 H 1.25 H Glucose 119 H 93 Calcium 8.7 8.5 Liver Function 04/14/22 Range/Units 18:37 Total Bilirubin 0.5 (0.2-1.0) mg/dl AST 17 (13-39) U/L ALT 3 L (7-52) U/L Alkaline Phosphatase 90 (34-104) U/L Albumin 4.0 (3.4-5.0) gm/dl Urine 04/14/22 Range/Units 19:54 Urine Color Yellow Urine Appearance Clear (Clear) Urine pH 5.0 (4.5-7.5) Ur Specific Carr 1.009 (1.000-1.030) Urine Protein Negative (Negative) Urine Glucose (UA) Negative (Negative) Diagnostic Findings Head CT 04/15/22 06:55 CT SCAN OF THE BRAIN WITHOUT IV CONTRAST CLINICAL HISTORY: Strokelike symptoms. COMPARISON STUDY: CT of the brain dated 04/14/2022. TECHNIQUE: Unenhanced axial CT scan of the brain is performed from the vertex to the skull base. A dose lowering technique was utilized adhering to the principles of ALARA. The examination is degraded by streak artifact from intracranial electrodes. FINDINGS: Brain parenchyma: Intracranial electrodes from a bifrontal approach terminate in the basal ganglia. There are age-related involutional changes noting mild subcortical and periventricular microangiopathic change. There is no hemorrhage, mass effect, or evidence of acute territorial ischemia by CT criteria. Batista- white matter differentiation is preserved. No extra-axial fluid collection is seen. Ventricles, sulci, cisterns: Prominent secondary to involutional change. Intracranial vasculature: There is atherosclerotic calcification of the cavernous carotid intervertebral arteries. Calvarium: The skeletal structures are osteopenic. There are bifrontal santiago holes with intracranial electrodes identified. Sinuses and mastoids: The visualized paranasal sinuses are clear. The mastoid air cells are well pneumatized. Orbits: The bony orbits are grossly intact. There are bilateral ocular lens implants. IMPRESSION: There is no hemorrhage, mass effect, or evidence of acute territorial ischemia by CT criteria. No change from yesterday. ACT 112: Negative or not required by law. Electronically signed by: Eddie Katz M.D. 04/15/2022 8:12 AM Medications Administered Current Inpatient Medications Acetaminophen (Acetaminophen 325 Mg Tab) 650 mg PO Q4H PRN PRN Reason: Pain or Fever Stop: 05/14/22 23:52 Amantadine HCl (Amantadine Hcl 100 Mg Capsule) 100 mg PO Q2D@0900 [facility]; Protocol Stop: 05/15/22 00:44 Last Admin: 04/15/22 08:55 Dose: 100 mg Artificial Tears (Artificial Tears) 1 drops OP HS [facility] Stop: 05/15/22 20:59 Carbidopa/Levodopa (Carbidopa/Levodopa 1 Each Capsule.Er) 1 each PO BID@1200,1700 [facility] Stop: 05/15/22 16:59 Last Admin: 04/15/22 16:50 Dose: 1 each Carbidopa/Levodopa (Carbidopa/Levodopa 1 Each Capsule.Er) 2 each PO DAILY@0730 [facility] Stop: 05/16/22 07:29 Furosemide (Furosemide 20 Mg Tab) 20 mg PO DAILY PRN PRN Reason: wt gain Stop: 05/15/22 00:44 Labetalol HCl (Labetalol Hcl Iv 5 Mg/Ml 20ml) 10 mg IV Q4H PRN PRN Reason: Hypertension Stop: 05/15/22 00:42 Last Admin: 04/15/22 01:10 Dose: 10 mg Miscellaneous Information (Pharmacist Discharge Med Rec Consult) 1 each N/A UD PRN PRN Reason: Consult Stop: 05/14/22 23:52 Polyethylene Glycol (Polyethylene (Miralax) 17 Gm Pack) 17 gm PO DAILY PRN PRN Reason: Constipation Stop: 05/14/22 23:52 Quetiapine Fumarate (Quetiapine Fumarate 25 Mg Tablet) 50 mg PO [facility] Stop: 05/15/22 00:44 Last Admin: 04/15/22 01:56 Dose: 50 mg Simvastatin (Simvastatin 20 Mg Tab) 20 mg PO [facility] Stop: 05/15/22 20:59
[2022-04-15] MEDS: DOCUSATE SODIUM 100 MG CAP PO SCH (20:53)
[2022-04-15] MEDS: HEPARIN SOD 5,000 UNIT/0.5 ML VIAL SQ SCH (20:53)
[2022-04-15] MEDS ORDERED: SIMVASTATIN 20 MG TAB PO SCH (21:00)
[2022-04-15] MEDS ORDERED: ARTIFICIAL TEARS OP SCH (21:00)
[2022-04-15] MEDS ORDERED: hydrALAZINE HCL 20 MG/ML VIAL IV PRN (21:12)
[2022-04-16] MEDS ORDERED: CARBIDOPA/LEVODOPA 1 EACH CAPSULE.ER PO SCH (07:30)
[2022-04-16] MEDS: DOCUSATE SODIUM 100 MG CAP PO SCH (07:40)
[2022-04-16 07:41] LABS: Basophils # (auto) 0.05 K/uL (0-0.2); Basophils % (auto) 0.7 %; Eosinophils # (auto) 0.29 K/uL (0-0.50); Eosinophils % (auto) 4.3 %; Hematocrit (blood only) 39.9 % (34.1-44.9); Hemoglobin 12.9 g/dl (12.0-16.0); Immature Granulocytes # (auto) 0.02 K/uL (0.00-0.02); Immature Granulocytes % (auto) 0.3 %; Lymphocytes # (auto) 1.91 K/uL (1.2-3.4); Lymphocytes % (auto) 28.3 %; Mean Corpuscular Hemoglobin 30.1 pg (25.0-34.0); Mean Corpuscular Hgb Conc 32.3 g/dL (32.0-36.0); Mean Corpuscular Volume 93.2 fL (80.0-100.0); Mean Platelet Volume 9.7 fL (9.4-12.3); Monocytes # (auto) 0.63 K/uL (0.24-0.82); Monocytes % (auto) 9.3 %; Neutrophils # (auto) 3.84 K/uL (1.4-6.5); Neutrophils % (auto) 57.1 %; Platelet Count 223 K/uL (130-400); RDW Coefficient of Variation 12.7 % (11.5-14.5); RDW Standard Deviation 43.7 fL (36.4-46.3); Red Blood Count 4.28 M/uL (3.93-5.22); White Blood Count 6.74 K/ul (4.8-10.8)
[2022-04-16] MEDS: HEPARIN SOD 5,000 UNIT/0.5 ML VIAL SQ SCH (07:44)
[2022-04-16 08:14] LABS: BUN Creatinine Ratio 23.1 (10-20); Calcium 9.3 mg/dl (8.5-10.1); Creatinine Clr Calc Pharmacy 27.8 ml/min; Est GFR (African American) 48.9 ml/min; Est GFR (Non-African American) 42.2 ml/min; Potassium 4.1 mmol/L (3.5-5.1)
[2022-04-16 08:24] LABS: Folate (Folic Acid) 20.27 ng/ml (>5.38)
[2022-04-16 08:28] LABS: Vitamin D, 25 Hydrox 40.2 ng/ml (30-100)
[2022-04-16] MEDS ORDERED: LOSARTAN POTASSIUM 25 MG TAB PO SCH (09:00)
[2022-04-16] MEDS: CARBIDOPA/LEVODOPA 1 EACH CAPSULE.ER PO SCH ×2 (12:11→16:48)
--- NOTE | 2022-04-16 12:16 | Neurology Consultation ---
Date of Consultation April 16, 2022 Assessment & Plan (1) Stroke-like symptoms: 1. CT head- no acute findings 2. CTA head neck - WNL 3. TTE- no ASD 4. EEG- no seizure focus or spikes 5. PT/OT discharge needs 6. follow up with [facility] neurology as scheduled. would not change medication without discussing care with [facility]. 7. would likely benefit from inpatient rehab stay 8. DBS will need interrogated by her neurologist- likely no MRI compatible. with the leaning to right ? if stroke but she has been doing this for a long time- does not show old stroke on CT head (2) Parkinsons disease: 1. will need to follow up with [facility] as outpatient for further recommendations Supervising Physician Co-Signing Physician Notes Patient was seen and examined. Admitted with increased falls and recent mild TBI. No new medicaitons. CT head negative for acute hemorrhage. On examine patient appears stated age, no distress, speech is soft, masked facies, reduced blink rate. No resting tremor noted. PT evaluated patient and ok for home. Ok to discharge from Neuro standpoint. Outpatient PT and follow up w [facility] in April. History of Present Illness Reason for Consultation: increase falls, parkinson's disease. Requesting Physician: Efren Wright MD Attending Physician: Efren Wright MD History of Present Illness Alda is an 81 year old female with PMH- HLD, prediabetes, chronic diastolic CHF due to valvular heart disease, nonrheumatic aortic valve insufficiency, tricuspid valve regurgitation, mitral regurgitation, orthostatic hypotension, pulmonary hypertension, hypertension , kidney stones on the left side, CKD III, restless legs syndrome, Parkinson's disease, sicca syndrome, positive ZARA antibody, who lives at home, presents with stroke-like symptoms 04/14/22.She has had frequent falling, dropping down as per records, but lately she is falling more. She fell 3 times recently and at one time, she hit the head on the wall. She has been having on and off visual hallucinations and she is having slurred speech and leaning to right side while ambulating Her slurred speech improved, but with her ongoing symptoms, she came to the hospital. She has this episode, she just stares for about a minute, but no loss of consciousness. She has a history of loss of consciousness and falling down in the past. She feels she is not back to her baseline. She had physical therapy in the past which she didn't give a good effort.She has a DBS which is unknown if MRI compatible. denies CP, SOB, abdominal pain, N, V. Allergies Allergy/AdvReac Type Severity Reaction Status Date / Time No Known Allergies Allergy Verified 04/14/22 21:30 Home Medications Medication Instructions Recorded Confirmed Type amantadine HCl 100 mg capsule 100 mg PO BID 09/04/20 04/14/22 History carbidopa ER 48.75 mg-levodopa 195 See Rx Instructions .Route .COMPLEX 09/04/20 04/14/22 History mg capsule,extended release (Rytary) simvastatin 20 mg tablet 20 mg PO HS 09/04/20 04/14/22 History furosemide 20 mg tablet 20 mg PO DAILY PRN wt gain 01/23/21 04/14/22 History acetaminophen 325 mg tablet 650 mg PO Q4H 03/26/21 04/14/22 History (Tylenol) carboxymethylcellulose sodium 0.5 1 drp ophthalmic (eye) HS 03/26/21 04/14/22 History % eye drops in a dropperette (Refresh Plus) quetiapine 25 mg tablet 50 mg PO HS 04/14/22 04/14/22 History docusate sodium 100 mg capsule 100 mg PO BID PRN constipation #30 04/16/22 Rx caps polyethylene glycol 3350 17 gram 17 g PO DAILY PRN constipation #30 04/16/22 Rx oral powder packet (Miralax) ea Patient History Medical History (Updated 04/15/22 @ 19:28 by Anusha Montoya DO) Hyperlipidemia Hypertension One time episode- no longer has HTN Recent orthostatic hypotension - seen in ER on 03/26/21- was taken off Amlodipine Kidney stones Mitral valve prolapse follows with [facility] Cardiology ([facility]) Nausea and vomiting after administration of anesthetic agent Nephrolithiasis Parkinsons disease Follows with [facility] On four week trial with brain stimulator with changing rates Presence of brain neurostimulator device Vitamin D deficiency Surgical History History of cardiac cath ~1979's. no stents. History of cataract surgery bilateral History of colonoscopy S/P insertion of brain-responsive neurostimulation device Deep brain stimulation. December 2020, [facility]. Placed for Parkinson's Disease. Advised to bring any remotes/manuals to hospital for surgery S/P ARNAUD (total abdominal hysterectomy) with RSO S/P tendon repair Left tricep tendon repair Family History Other No family history of adverse response to anesthesia Social History Smoking Status: Never smoker Second Hand Exposure: No; Hx Alcohol Use: No Hx Substance Use: No Preferred Language: Slovenian Communication Ability: Effective Hooker On Required: No Beliefs That Will Affect Care: None marital status: Current Living Situation: Spouse Other Information That Helps Us Care for You: No Feels Safe at Home: Yes Safety Concerns: Feels Safe At This Time Assistive Devices: Cane and Walker Review of Systems Review of Systems: All systems reviewed & are unremarkable except as noted in HPI & below Physical Exam Physical Exam: Physical Exam: Constitutional: appearance nourished, healthy and mask facies Ears, Nose, Mouth and Throat: mucous membranes moist, no injection and skin normal, eyes normal Cardiovascular: normal S-1 and S-2 and regular rate and rhythm Respiratory: clear to auscultation (CTA) and no rales, ronchi or wheeze Musculoskeletal: no peripheral edema and good distal pulses Skin: no stigmata of neurocutaneous disease noted and normal and intact Eyes: extraocular muscles intact (EOMI) and pupils equal, round and reactive to light (PERRL)decreased blink NEUROLOGIC EXAMINATION: Mental status: Alert and interactive Oriented to full date and location Oriented to person Speech soft voice not good projection Cranial Nerves smile eye brow raise symmetric Coordination: finger to nose Gait/Stance: Posture sitting in bed side chair stands using arms of chair but very wobbly Motor: Negative for pronator drift of out stretched arms with eyes closed. 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 No epileptiform activity is seen. CT head-. There is no hemorrhage, mass effect, or evidence of acute territorial ischemia by CT criteria. Intracranial electrodes are unchanged from previous. Unremarkable CT angiogram of the brain. Unremarkable CT angiogram of the neck. TTE 60-65% EF no ASD
--- NOTE | 2022-04-16 15:40 | Hospitalist Progress Note ---
Date of Service April 16, 2022 Assessment & Plan (1) Falls frequently: Plan: Increased falls at home. No peripheral neuropathy. No evidence of acute infection such as UTI. Her BP readings do reveal presence of orthostatic hypotension which is likely related to her parkinson's diagnosis and has been ongoing. She denies any recent medication changes and remains on Sinemet TID. She also takes amantadine and seroquel. Weight loss is present on exam and she even notes that her DBS in her left anterior chest has changed. We discussed this is likely a result of her weight changes. She is tolerating PO and stroke workup overnight was negative. Neurology consulted and EEG performed whichwas normal. Pending further recommendations. (2) Parkinsons disease: Plan: Chronic, appears stable, cont current therapy. (3) HTN (hypertension): Plan: Elevated blood pressure with ongoing orthostatic hypotension. Cautious with medical management given the drop in BP with standing. Not on antihypertensive therapy. Will given prn medication at this time and cont to monitor. (4) CKD (chronic kidney disease), stage III: Plan: chronic, she is at her baseline creatinine (1.3). Cont to renally dose medications as needed and avoid nephrotoxic substances. (5) Moderate malnutrition: Plan: chronic weight 105lbs per outpatient records review for the past two years. Patient is cachectic-appearing on exam. Moderate malnutrition documented by nutrition assessment today. Boost, daily MVI, daily bowel regimen 2/2 constipation and assistance with meals as needed. (6) DVT prophylaxis: Plan: Heparin Full Code Dispo-to home pending Neurology recommendations. Efren Wright MD [facility] Medicine Admission and Anticipated Discharge Date Admission Date: April 14, 2022 Subjective 81-year-old female with known history of Parkinson's and orthostatic hypotension presents with recurrent falls that are increasing in frequency. She hit her head during one of the falls and a CT scan was negative for acute bleed or acute intracranial abnormality. Repeat CT head this morning was also negative for intracranial abnormality. Neurology to evaluate patient and give recs. EEG wnl, TTE with normal systolic function and elevated RV pressures. Patient denies any pain or shortness of breath Worked with PT and OT today and they recommend she is good to go home Ambulates independently at baseline and uses a walker as needed. Denies any lightheadedness except when going from sitting to standing. appeared confused this morning, asking "if my dad let you in." and kept asking if I could call her "dad so he could hear what we were talking about" Review of Systems Review of Systems: All systems reviewed & are unremarkable except as noted in Subjective Physical Exam Constitutional: + well hydrated and + underweight; no acute distress, not ill appearing and not overweight fidgeting in bed, appeared anxious but denied being anxious when asked. Eyes: + anicteric sclerae, PERRL and EOM intact bilaterally; no conjunctival abnormality ENMT: Ears: no external ear abnormality Nose: no sinus tenderness and no epistaxis Mouth: no oropharynx abnormality, no oral mucosal abnormality, oral mucous membranes not dry and no dentition abnormality Throat: no tonsil abnormality Neck: trachea midline; no tracheal deviation and no nuchal rigidity Thyroid: normal thyroid; no thyromegaly and thyroid nontender Respiratory: normal respiratory effort; no respiratory distress, no labored breathing, does not use accessory muscles, not tachypneic and no audible wheezes Auscultation: lungs clear to auscultation bilaterally; no crackles, no rales, no rhonchi and no wheezes Cardiovascular: Rate/Rhythm: regular rate and regular rhythm Heart Sounds: normal S1 and normal S2; no gallop, no murmur and no cardiac rub Vessels: normal peripheral pulses; no JVD Extremities: normal capillary refill; no edema Gastrointestinal (Abdomen): Inspection/Auscultation: normal bowel sounds; abdomen not distended Percussion/Palpation: abdomen soft; abdomen nontender, no guarding, abdomen not rigid and no hepatosplenomegaly Musculoskeletal: Head/Neck/Chest: normocephalic, head atraumatic and neck supple Spine: normal cervical ROM and no cervical spinal tenderness Extremities: strength 5/5 throughout; full ROM of extremities and no clubbing Skin: normal turgor; no rashes, no lesions, no ulcers, no induration, no jaund ice, no dry skin and no erythema Neurologic: moves all extremities and awake; no focal motor deficits Speech / Cognition: normal speech Motor/Sensory: no tremor, no fasciculations and no sensory deficit Cranial Nerves: PERRL, EOM intact bilaterally and tongue midline Psychiatric: Orientation: alert, oriented to person, oriented to time and cooperative Motor Behavior: + psychomotor agitation Affect: euthymic affect Thought Content: + preoccupation Lymphatic: no lymphadenopathy and no lymphedema Results & Data Results & Data ([facility]) Vital Signs (Past 12 Hours) Vital Signs Temp Pulse Resp BP Pulse Ox O2 Del Method 04/16/22 10:37 36.7 C 73 17 178/66 H 93 Room Air 04/16/22 08:47 129/67 04/16/22 07:34 36.4 C L 76 20 209/69 H 94 Room Air Laboratory Results Short CBC 04/16/22 Range/Units 06:55 WBC 6.74 (4.8-10.8) K/ul Hgb 12.9 (12.0-16.0) g/dl Hct 39.9 (34.1-44.9) % Plt Count 223 (130-400) K/uL BMP 04/16/22 06:55 Sodium 141 Potassium 4.1 D Chloride 107 Carbon Dioxide 26 BUN 28 H Creatinine 1.21 H Glucose 94 Calcium 9.3 Medications Administered Current Inpatient Medications Acetaminophen (Acetaminophen 325 Mg Tab) 650 mg PO Q4H PRN PRN Reason: Pain or Fever Stop: 05/14/22 23:52 Last Admin: 04/16/22 03:07 Dose: 650 mg Amantadine HCl (Amantadine Hcl 100 Mg Capsule) 100 mg PO Q2D@0900 [facility]; Protocol Stop: 05/15/22 00:44 Last Admin: 04/15/22 08:55 Dose: 100 mg Artificial Tears (Artificial Tears) 1 drops OP HS [facility] Stop: 05/15/22 20:59 Last Admin: 04/15/22 20:59 Dose: 1 drops Carbidopa/Levodopa (Carbidopa/Levodopa 1 Each Capsule.Er) 1 each PO BID@1200,1700 [facility] Stop: 05/15/22 16:59 Last Admin: 04/16/22 12:11 Dose: 1 each Carbidopa/Levodopa (Carbidopa/Levodopa 1 Each Capsule.Er) 2 each PO DAILY@0730 [facility] Stop: 05/16/22 07:29 Last Admin: 04/16/22 07:39 Dose: 2 each Docusate Sodium (Docusate Sodium 100 Mg Cap) 100 mg PO BID [facility] Stop: 05/15/22 20:59 Last Admin: 04/16/22 07:40 Dose: 100 mg Furosemide (Furosemide 20 Mg Tab) 20 mg PO DAILY PRN PRN Reason: wt gain Stop: 05/15/22 00:44 Heparin Sodium (Porcine) (Heparin Sod 5,000 Unit/0.5 Ml Vial) 5,000 units SQ Q12 DONATO Stop: 05/15/22 20:59 Last Admin: 04/16/22 07:44 Dose: 5,000 units Hydralazine HCl (Hydralazine Hcl 20 Mg/Ml Vial) 5 mg IV Q6H PRN PRN Reason: SBP>180 Stop: 05/15/22 21:14 Labetalol HCl (Labetalol Hcl Iv 5 Mg/Ml 20ml) 10 mg IV Q4H PRN PRN Reason: Hypertension Stop: 05/15/22 00:42 Last Admin: 04/15/22 01:10 Dose: 10 mg Miscellaneous Information (Pharmacist Discharge Med Rec Consult) 1 each N/A UD PRN PRN Reason: Consult Stop: 05/14/22 23:52 Polyethylene Glycol (Polyethylene (Miralax) 17 Gm Pack) 17 gm PO DAILY PRN PRN Reason: Constipation Stop: 05/14/22 23:52 Quetiapine Fumarate (Quetiapine Fumarate 25 Mg Tablet) 50 mg PO HS DONATO Stop: 05/15/22 00:44 Last Admin: 04/15/22 20:53 Dose: 50 mg Simvastatin (Simvastatin 20 Mg Tab) 20 mg PO HS DONATO Stop: 05/15/22 20:59 Last Admin: 04/15/22 20:53 Dose: 20 mg
[2022-04-16] MEDS ORDERED: hydrALAZINE 10 MG TAB PO PRN (15:47)
[2022-04-16] MEDS ORDERED: STROKE PATIENT DISCHARGE STA (16:58)
--- NOTE | 2022-04-16 18:02 | Discharge Summary ---
Date of Service April 16, 2022 Admission HPI Per Admitting Provider An 81-year-old female with past medical history significant for hyperlipidemia, prediabetes, chronic diastolic CHF due to valvular heart disease, nonrheumatic aortic valve insufficiency, tricuspid valve regurgitation, mitral regurgitation, orthostatic hypotension, pulmonary hypertension, hypertension , history of kidney stones on the left side, history of chronic kidney disease stage III, restless legs syndrome, Parkinson's disease, sicca syndrome, positive ZARA antibody, , who lives at home, presents with stroke-like symptoms. The patient has history of frequent falling, dropping down as per records, but lately she is falling more. She fell 3 times recently and at one time, she hit the head on the wall. Since then she is having on and off visual hallucinations and she is having slurred speech and leaning to right side while ambulating Her slurred speech improved, but with her ongoing symptoms, she came to the hospital. Currently, denies any headache. As per when she has this episode, she just stares for about a minute, but no loss of consciousness. She has a history of loss of consciousness and falling down in the past. She always has some runny nose, no earache, no sore throat, no cough, no difficulty swallowing. No chest pain. Has some shortness of breath on exertion. No nausea, no vomiting, no abdominal pain. Normal bowel and bladder movements. No swelling in the legs. Currently, resting comfortably and hemodynamically stable. Admission Exam Per Admitting Provider GENERAL: The patient is thin and frail, not in acute distress. VITAL SIGNS: Temperature 36.8, pulse 71, respiratory rate 19, blood pressure 172/70, oxygen 100% on room air. HEENT: Pupils equal, round and reactive to light. Oral mucosa moist. NECK: No JVD, no neck masses. CARDIOVASCULAR: S1 and S2 heard. Regular rate and rhythm. No murmur, no gallop. RESPIRATORY SYSTEM: Normal AP diameter. No accessory muscle use. No wheezing or crackles. ABDOMEN: Soft, bowel sounds present, nontender, no distention. CENTRAL NERVOUS SYSTEM: Alert and oriented. Speech is clear. No facial droop. Extraocular muscles intact. Power 4/5 in all extremities. Sensation is intact. No pronator drift. Coordination of movements normal. EXTREMITIES: No edema, no erythema. Principal Diagnosis falls Discharge Exam Constitutional + well hydrated and + underweight; no acute distress, not ill appearing and not overweight Eyes + anicteric sclerae, PERRL and EOM intact bilaterally; no conjunctival abnormality ENMT Ears: no external ear abnormality Nose: no sinus tenderness and no epistaxis Mouth: no oropharynx abnormality, no oral mucosal abnormality, oral mucous membranes not dry and no dentition abnormality Throat: no tonsil abnormality Neck trachea midline; no tracheal deviation and no nuchal rigidity Thyroid: normal thyroid; no thyromegaly and thyroid nontender Respiratory normal respiratory effort; no respiratory distress, no labored breathing, does not use accessory muscles, not tachypneic and no audible wheezes Auscultation: lungs clear to auscultation bilaterally; no crackles, no rales, no rhonchi and no wheezes Cardiovascular Rate/Rhythm: regular rate and regular rhythm Heart Sounds: normal S1 and normal S2; no gallop, no murmur and no cardiac rub Vessels: normal peripheral pulses; no JVD Extremities: normal capillary refill; no edema Gastrointestinal (Abdomen) Inspection/Auscultation: normal bowel sounds; abdomen not distended Percussion/Palpation: abdomen soft; abdomen nontender, no guarding, abdomen not rigid and no hepatosplenomegaly Musculoskeletal Head/Neck/Chest: normocephalic, head atraumatic and neck supple Spine: normal cervical ROM and no cervical spinal tenderness Extremities: strength 5/5 throughout; full ROM of extremities and no clubbing Skin normal turgor; no rashes, no lesions, no ulcers, no induration, no jaundice, no dry skin and no erythema Neurologic moves all extremities and awake; no focal motor deficits Speech / Cognition: normal speech Motor/Sensory: no tremor, no fasciculations and no sensory deficit Cranial Nerves: PERRL, EOM intact bilaterally and tongue midline Psychiatric Orientation: alert, oriented to person, oriented to time and cooperative Motor Behavior: + psychomotor agitation Affect: euthymic affect Thought Content: + preoccupation Lymphatic no lymphadenopathy and no lymphedema Discharge Data Allergies Allergy/AdvReac Type Severity Reaction Status Date / Time No Known Allergies Allergy Verified 04/14/22 21:30 Consultations 04/14/22 20:35 ED Decision to Admit Stat 04/15/22 08:00 Consult Neurology Routine Ordered Studies 04/14/22 18:37 CT angio head w con Stat CT angio neck with con Stat CT head/brain wo con Stat 04/15/22 06:55 CT head/brain wo con Urgent Hospital Course (1) Falls frequently: Increased falls at home. No peripheral neuropathy. No evidence of acute infection such as UTI. Her BP readings do reveal presence of orthostatic hypotension which is likely related to her parkinson's diagnosis and has been ongoing. She denies any recent medication changes and remains on Sinemet TID. She also takes amantadine and seroquel. Weight loss is present on exam and she even notes that her DBS in her left anterior chest has changed. We discussed this is likely a result of her weight changes. She is tolerating PO and stroke workup overnight was negative. Neurology consulted and EEG performed whichwas normal. Neurology evaluated and made recommendations for patients private neurologist and deferred final decisions to that provider. Ok to discharge from neurology standpoint. (2) Parkinsons disease: Chronic, appears stable, cont current therapy. (3) HTN (hypertension): Elevated blood pressure with ongoing orthostatic hypotension. Cautious with medical management given the drop in BP with standing. Not on antihypertensive therapy. Will given prn medication at this time and cont to monitor. (4) CKD (chronic kidney disease), stage III: chronic, she is at her baseline creatinine (1.3). Cont to renally dose medications as needed and avoid nephrotoxic substances. (5) Moderate malnutrition: chronic weight 105lbs per outpatient records review for the past two years. Patient is cachectic-appearing on exam. Moderate malnutrition documented by nutrition assessment today. Boost, daily MVI, daily bowel regimen 2/2 constipation and assistance with meals as needed. (6) DVT prophylaxis: Heparin Full Code Dispo-to home pending Neurology recommendations. Efren Wright MD [facility] Medicine Total Time Total Time Spent Total Time Spent (In Minutes): 30 minutes. Total Time Includes: Examination of the Patient, Discharge Planning, Medication Reconciliation and Communication With Other Providers Discharge Plan Discharge Items Patient Disposition: Home - Self-Care Reason For Visit: CVA SYMPTOMS, FALLS Discharge Diagnosis: falls Condition on Discharge: Fair Activity: Resume your previous activity Activity Comment: with assistance when needed Non-emergency contact: Primary Care Provider and Neurologist Call non-emergency contact if: you have any medication questions and your symptoms worsen Follow-up/Referrals: Jose Colindres MD [Primary Care Provider] - Diet: Carb Consistent or DM2 Addtl Attending Provider Instructions: You were evaluated by neurology for increased falls and worked up with CT of your head and neck which was negative, EEG for seizure which was negative. Neurologist saw you and made some recommendations for you to discuss with your neurologist in 04/2022 about medications changes. Physical therapy saw you and recommend to go home with family support. Pending Studies at Discharge: No Stand-Alone Forms: My [facility] GetMyRx, Smoking Cessation Medications and DC Order Prescriptions: New docusate sodium 100 mg Capsule 100 mg PO BID PRN (Reason: constipation) Qty: 30 0RF polyethylene glycol 3350 [Miralax] 17 gram Powder In Packet 17 g PO DAILY PRN (Reason: constipation) Qty: 30 0RF Continued amantadine HCl 100 mg capsule 100 mg PO BID Rx Instructions: take am & afternoon simvastatin 20 mg tablet 20 mg PO HS Rytary 48.75-195 mg capsule, extended release See Rx Instructions .ROUTE .COMPLEX Rx Instructions: TAKE 2 CAPS QAM, 1 CAP IN THE AFTERNOON, AND 1 CAP IN THE EVENING doses 5 hours apart acetaminophen [Tylenol] 325 mg Tablet 650 mg PO Q4H furosemide 20 mg tablet 20 mg PO DAILY PRN (Reason: wt gain) Rx Instructions: for shortness of breath carboxymethylcellulose sodium [Refresh Plus] 0.5 % Dropperette 1 drp OPHTHALMIC (EYE) HS quetiapine 25 mg tablet 50 mg PO HS Rx Instructions: Per dr 1st Discharge Orders: Discharge Order (Routine); Ordered 04/16/22 Ordered By: Efren Tomas/Other Patient Handouts: A1C Admission Data Admit Date/Time: 04/14/22 21:30 Attending Provider: Efren Wright Admit Provider: Rei Clarke Primary Care Provider: Jose Colindres Other Providers: Rei Clarke ; Lilia Molina Other Interventions: Discharge Summary Assessment (RN) Last Done: 04/16/22 17:13
== END 2022-04-16 18:10 | disposition home or self-care (01) | DRG 92 ==
LOC: ED 18:01 → 2S 21:30 → SUATTDRO 21:30 → 2S 23:19

== ENCOUNTER 2022-06-11 17:50 | Inpatient (IN) ==
--- NOTE | 2022-06-11 18:15 | Emergency Department Note ---
Impression & Plan AMS (altered mental status), HTN (hypertension), Parkinsons disease ED Provider Note Provider: Bandar Stanford MD DATE OF SERVICE: 06/11/2022 CHIEF COMPLAINT: Weakness, change in mental status HISTORY OF PRESENT ILLNESS: Patient is a 81-year-old female history of hypertension, Parkinson disease with DBS, CKD, and heart failure presenting here today via ambulance from her home. Per EMS report evidently the patient around noon began to have a change in mental status was more lethargic. Her speech was not quite as clear. called 911 and she was brought here and arrived around 6 PM this evening. No trauma or fevers reported. No significant recent medication changes reported. Evidently similar episode of this occurred over the summer in March of this year without significant explanation found. Patient herself is unable provide me significant history but occasionally answers yes or no questions. She denies any significant dizziness or nausea. Denies chest pain or shortness of breath. Denies headache. REVIEW OF SYSTEMS: Limited as the patient only answer certain questions. PAST MEDICAL HISTORY: As noted above MEDICATIONS: Reviewed the home medication list available SOCIAL HISTORY: Resides at home with PHYSICAL EXAM: GENERAL: alert and oriented in no acute distress on stretcher Head: normocephalic and atraumatic EYES: No injection, discharge or icterus. PERRL NECK: Trachea midline. Supple. ENT: Mucous membranes pink and moist. Pharynx without erythema or exudate. LUNGS: Airway patent. No retractions. Breath sounds clear with good air entry bilaterally. HEART: Regular rate and rhythm. No chest wall tenderness ABDOMEN: Soft and non-tender, without guarding or rebound. SKIN: Acyanotic, warm, dry, without rashes EXTREMITIES: Without swelling, tenderness or deformity NEUROLOGICAL: No aphasia but difficult to have the patient say more than 1 or 2 words at a time. No facial droop or slurred speech. Resistant all extremities but otherwise following commands and not holding up arms or legs for drop test. EK bpm normal sinus rhythm. No PVC or PAC. No acute ST segment elevation or depression with a QTC of 451. Some LVH changes noted. CONTINUOUS CARDIAC MONITORING: was ordered and showed a heart rate of 70s-80s bpm in normal sinus rhythm Patient's laboratory studies and imaging reviewed. Differential includes Infection, dehydration, metabolic abnormality, hypo/hyperglycemia, electrolyte disturbance, anemia, hypoxia, cardiac sources, intracerebral event, toxicologic, neurologic, as well as other pathologies. IMPRESSION/MEDICAL DECISION MAKING: Patient presents somewhat responsive but only answering certain questions. Does not appear to be seizing and no gaze preference or deviation noted. She will answer some yes or no questions. Intermittently follows some commands. Afebrile upon arrival. Infectious work-up was obtained as well as CT of the head and angiograms of the head and neck. Do not see clear evidence of seizure at this point. /several days she has been more fatigued but significant decline today. Limited food intake today only some liquids. No recent medication changes. Patient's CBC here without significant abnormality such as leukocytosis or anemia. Electrolytes and renal function without severe abnormality. Troponin 10.5 minimally higher than previous but within normal lucio its. CT of the head without acute findings per radiology. Significantly hypertensive here and given some IV labetalol. No significant LFT or TSH abnormality noted. CT angiograms of the head and neck without acute pathology noted per radiology report. Urinalysis not impressive. Unsure of the etiology of her lethargy and change in mental status at this point. Does not seem highly suspicious for infectious etiology. Again does interact some but very minimal and nonfocal. Discussed with at bedside and will have the hospitalist evaluate for continued observation and work-up here at the hospital. DIAGNOSIS: Altered mental status, hypertension DISPOSITION: Hospitalist will evaluate Patient was agreeable with this plan. Discussed return precautions and advised follow up. Past Med/Surg History Medical History (Updated 06/11/22 @ 21:47 by Bandar Stanford M.D.) Falls frequently Hyperlipidemia Hypertension One time episode- no longer has HTN Recent orthostatic hypotension - seen in ER on 03/26/21- was taken off Amlodipine Kidney stones Mitral valve prolapse follows with [facility] Cardiology ([facility]) Nausea and vomiting after administration of anesthetic agent Nephrolithiasis Parkinsons disease Follows with neuro - [facility] On four week trial with brain stimulator with changing rates Presence of brain neurostimulator device Vitamin D deficiency Surgical History History of cardiac cath ~1979'. no stents. History of cataract surgery bilateral History of colonoscopy S/P insertion of brain-responsive neurostimulation device Deep brain stimulation. December 2020, [facility]. Placed for Parkinson's Disease. Advised to bring any remotes/manuals to hospital for surgery S/P ARNAUD (total abdominal hysterectomy) with RSO S/P tendon repair Left tricep tendon repair Family History Other No family history of adverse response to anesthesia Social History Smoking Status: Unknown if ever smoked Second Hand Exposure: No; Hx Alcohol Use: No Hx Substance Use: No Preferred Language: [place] Citizen Communication Ability: Effective Defective Cigarette Slitter Required: No Beliefs That Will Affect Care: None marital status: Current Living Situation: Spouse Feels Safe at Home: Yes Assistive Devices: Cane and Walker Allergies Allergies Allergy/AdvReac Type Severity Reaction Status Date / Time No Known Allergies Allergy Verified 04/14/22 21:30 Home Meds Home Medications Medication Instructions Recorded Confirmed amantadine HCl 100 mg capsule 100 mg PO BID 09/04/20 06/11/22 carbidopa ER 48.75 mg-levodopa 195 See Rx Instructions .Route .COMPLEX 09/04/20 06/11/22 mg capsule,extended release (Rytary) simvastatin 20 mg tablet 20 mg PO HS 09/04/20 06/11/22 furosemide 20 mg tablet 20 mg PO DAILY PRN wt gain 01/23/21 06/11/22 carboxymethylcellulose sodium 0.5 1 drp ophthalmic (eye) HS 03/26/21 06/11/22 % eye drops in a dropperette (Refresh Plus) quetiapine 25 mg tablet 50 mg PO HS 04/14/22 06/11/22 Previous Rx's Medication Instructions Recorded docusate sodium 100 mg capsule 100 mg PO BID PRN constipation #30 04/16/22 caps polyethylene glycol 3350 17 gram 17 g PO DAILY PRN constipation #30 04/16/22 oral powder packet (Miralax) ea Results & Data (ED) Vital Signs Vital Signs - 24 hr 06/11/22 18:14 06/11/22 18:14 06/11/22 18:14 Temperature 36.5 C Temperature Source Oral Pulse Rate 75 75 Pulse Rate from SpO2 Sensor Pulse Rhythm Regular Regular Pulse Strength Normal Respiratory Rate 21 21 Respiratory Effort / Characteristics Non-Labored Respiratory Depth Normal Respiratory Pattern Regular Blood Pressure 188/67 H Blood Pressure [Left Arm] Blood Pressure Mean 107 Blood Pressure Mean [Left Arm] Blood Pressure Position Sitting Pulse Oximetry 97 97 97 Oxygen Delivery Method Room Air Room Air Room Air Sepsis Recent Fever Within 48 Hours No Sepsis New/Unexplained Change in Mental Status N/A Sepsis Action Taken by Nursing No Action Required 06/11/22 19:35 06/11/22 17:57 06/11/22 17:58 Temperature Temperature Source Pulse Rate 75 Pulse Rate from SpO2 Sensor 76 Pulse Rhythm Pulse Strength Respiratory Rate 16 20 Respiratory Effort / Characteristics Respiratory Depth Respiratory Pattern Blood Pressure 188/69 H Blood Pressure [Left Arm] 150/64 H Blood Pressure Mean 108 Blood Pressure Mean [Left Arm] 92 Blood Pressure Position Pulse Oximetry 99 99 Oxygen Delivery Method Sepsis Recent Fever Within 48 Hours Sepsis New/Unexplained Change in Mental Status Sepsis Action Taken by Nursing 06/11/22 18:00 06/11/22 18:10 06/11/22 18:20 Temperature Temperature Source Pulse Rate 75 73 73 Pulse Rate from SpO2 Sensor 79 73 72 Pulse Rhythm Pulse Strength Respiratory Rate 18 17 19 Respiratory Effort / Characteristics Respiratory Depth Respiratory Pattern Blood Pressure Blood Pressure [Left Arm] Blood Pressure Mean Blood Pressure Mean [Left Arm] Blood Pressure Position Pulse Oximetry 92 100 100 Oxygen Delivery Method Sepsis Recent Fever Within 48 Hours Sepsis New/Unexplained Change in Mental Status Sepsis Action Taken by Nursing 06/11/22 18:30 06/11/22 18:40 06/11/22 18:41 Temperature Temperature Source Pulse Rate 74 73 Pulse Rate from SpO2 Sensor 74 Pulse Rhythm Pulse Strength Respiratory Rate 11 L 22 Respiratory Effort / Characteristics Respiratory Depth Respiratory Pattern Blood Pressure 191/69 H Blood Pressure [Left Arm] Blood Pressure Mean 109 Blood Pressure Mean [Left Arm] Blood Pressure Position Pulse Oximetry 100 Oxygen Delivery Method Sepsis Recent Fever Within 48 Hours Sepsis New/Unexplained Change in Mental Status Sepsis Action Taken by Nursing 06/11/22 18:41 06/11/22 18:50 06/11/22 19:09 Temperature Temperature Source Pulse Rate 72 70 Pulse Rate from SpO2 Sensor 73 70 Pulse Rhythm Pulse Strength Respiratory Rate 19 5 L Respiratory Effort / Characteristics Respiratory Depth Respiratory Pattern Blood Pressure 205/79 H Blood Pressure [Left Arm] Blood Pressure Mean 121 Blood Pressure Mean [Left Arm] Blood Pressure Position Pulse Oximetry 100 100 Oxygen Delivery Method Sepsis Recent Fever Within 48 Hours Sepsis New/Unexplained Change in Mental Status Sepsis Action Taken by Nursing 06/11/22 19:09 06/11/22 19:10 06/11/22 19:20 Temperature Temperature Source Pulse Rate 74 72 Pulse Rate from SpO2 Sensor 74 74 72 Pulse Rhythm Pulse Strength Respiratory Rate 17 17 Respiratory Effort / Characteristics Respiratory Depth Respiratory Pattern Blood Pressure Blood Pressure [Left Arm] Blood Pressure Mean Blood Pressure Mean [Left Arm] Blood Pressure Position Pulse Oximetry 99 100 100 Oxygen Delivery Method Sepsis Recent Fever Within 48 Hours Sepsis New/Unexplained Change in Mental Status Sepsis Action Taken by Nursing 06/11/22 19:30 06/11/22 19:35 06/11/22 19:35 Temperature Temperature Source Pulse Rate 71 65 Pulse Rate from SpO2 Sensor 71 65 Pulse Rhythm Pulse Strength Respiratory Rate 23 18 Respiratory Effort / Characteristics Respiratory Depth Respiratory Pattern Blood Pressure 150/64 H Blood Pressure [Left Arm] Blood Pressure Mean 92 Blood Pressure Mean [Left Arm] Blood Pressure Position Pulse Oximetry 99 99 Oxygen Delivery Method Sepsis Recent Fever Within 48 Hours Sepsis New/Unexplained Change in Mental Status Sepsis Action Taken by Nursing 06/11/22 19:40 Temperature Temperature Source Pulse Rate 64 Pulse Rate from SpO2 Sensor 64 Pulse Rhythm Pulse Strength Respiratory Rate 18 Respiratory Effort / Characteristics Respiratory Depth Respiratory Pattern Blood Pressure Blood Pressure [Left Arm] Blood Pressure Mean Blood Pressure Mean [Left Arm] Blood Pressure Position Pulse Oximetry 99 Oxygen Delivery Method Sepsis Recent Fever Within 48 Hours Sepsis New/Unexplained Change in Mental Status Sepsis Action Taken by Nursing Laboratory Data Result diagrams: 06/11/22 18:10 06/11/22 18:10 Lab Results 06/11/22 06/11/22 06/11/22 Range/Units 18:10 18:10 18:10 WBC 6.27 (4.8-10.8) K/ul RBC 4.57 (3.93-5.22) M/uL Hgb 13.9 (12.0-16.0) g/dl POC Hgb (12.0-16.0) g/dl Hct 42.8 (34.1-44.9) % POC Hct (37-47) % MCV 93.7 (80.0-100.0) fL MCH 30.4 (25.0-34.0) pg MCHC 32.5 (32.0-36.0) g/dL RDW Std Deviation 44.6 (36.4-46.3) fL RDW Coeff of Ara 13.0 (11.5-14.5) % Plt Count 299 (130-400) K/uL MPV 9.9 (9.4-12.3) fL Immature Gran % (Auto) 0.3 % Neut % (Auto) 64.2 % Lymph % (Auto) 26.5 % Grant % (Auto) 7.5 % Eos % (Auto) 1.0 % Baso % (Auto) 0.5 % Neut # (Auto) 4.03 (1.4-6.5) K/uL Lymph # (Auto) 1.66 (1.2-3.4) K/uL Grant # (Auto) 0.47 (0.24-0.82) K/uL Eos # (Auto) 0.06 (0-0.50) K/uL Baso # (Auto) 0.03 (0-0.2) K/uL Immature Gran # (Auto) 0.02 (0.00-0.02) K/uL PT 10.3 (9.0-12.0) Seconds INR 1.0 (0.9-1.1) POC Sodium (135-144) mmol/L Sodium 142 (136-145) mmol/L POC Potassium (3.3-5.0) mmol/L Potassium 4.8 (3.5-5.1) mmol/L POC Chloride (101-112) mmol/L Chloride 109 H (98-107) mmol/L Carbon Dioxide 23 (21-32) mmol/L POC Total CO2 (24-31) mmol/L Anion Gap 10 (3-11) POC Anion Gap (16-25) mmol/L POC BUN (7-18) mg/dl BUN 25 H (6-23) mg/dl Creatinine 1.08 (0.6-1.2) mg/dl POC Creatinine (0.6-1.3) mg/dl Est Cr Clr Drug Dosing Not Reportable Est GFR ( Amer) 56.1 ml/min Est GFR (Non-Af Amer) 48.4 ml/min BUN/Creatinine Ratio 23.1 H (10-20) Glucose 101 H (70-99(Fasting)) mg/dl POC Glucose (other) (70-99) mg/dl Calcium 9.5 (8.5-10.1) mg/dl POC Ioniz Calcium Lee (1.12-1.32) mmol/l Magnesium 2.1 (1.7-2.4) mg/dl Total Bilirubin 0.8 (0.2-1.0) mg/dl AST 19 (13-39) U/L ALT < 3 L (7-52) U/L Alkaline Phosphatase 94 (34-104) U/L Troponin I High Sens 10.5 D (0-14) pg/ml Total Protein 6.7 (6.0-8.3) gm/dl Albumin 4.1 (3.4-5.0) gm/dl Globulin 2.6 (2.5-4.0) gm/dl Albumin/Globulin Ratio 1.6 (0.9-2) TSH (0.300-4.500) uIu/ml Urine Color Urine Appearance (Clear) Urine pH (4.5-7.5) Ur Specific [place] (1.000-1.030) Urine Protein (Negative) Urine Glucose (UA) (Negative) Urine Ketones (Negative) Urine Blood (Negative) Urine Nitrite (Negative) Urine Bilirubin (Negative) Urine Urobilinogen (Negative) Ur Leukocyte Esterase (Negative) Urine WBC (Auto) (0-5) /hpf Urine RBC (Auto) (0-4) /hpf U Hyaline Cast (Auto) (0-5) /lpf U Epithel Cells (Auto) (0-5) /lpf Urine Bacteria (Auto) (Negative) SARS-CoV-2, RNA, NAAT (NEGATIVE) 06/11/22 06/11/22 06/11/22 Range/Units 18:10 18:12 18:28 WBC (4.8-10.8) K/ul RBC (3.93-5.22) M/uL Hgb (12.0-16.0) g/dl POC Hgb (12.0-16.0) g/dl Hct (34.1-44.9) % POC Hct (37-47) % MCV (80.0-100.0) fL MCH (25.0-34.0) pg MCHC (32.0-36.0) g/dL RDW Std Deviation (36.4-46.3) fL RDW Coeff of Ara (11.5-14.5) % Plt Count (130-400) K/uL MPV (9.4-12.3) fL Immature Gran % (Auto) % Neut % (Auto) % Lymph % (Auto) % Grant % (Auto) % Eos % (Auto) % Baso % (Auto) % Neut # (Auto) (1.4-6.5) K/uL Lymph # (Auto) (1.2-3.4) K/uL Grant # (Auto) (0.24-0.82) K/uL Eos # (Auto) (0-0.50) K/uL Baso # (Auto) (0-0.2) K/uL Immature Gran # (Auto) (0.00-0.02) K/uL PT (9.0-12.0) Seconds INR (0.9-1.1) POC Sodium (135-144) mmol/L Sodium (136-145) mmol/L POC Potassium (3.3-5.0) mmol/L Potassium (3.5-5.1) mmol/L POC Chloride (101-112) mmol/L Chloride (98-107) mmol/L Carbon Dioxide (21-32) mmol/L POC Total CO2 (24-31) mmol/L Anion Gap (3-11) POC Anion Gap (16-25) mmol/L POC BUN (7-18) mg/dl BUN (6-23) mg/dl Creatinine (0.6-1.2) mg/dl POC Creatinine (0.6-1.3) mg/dl Est Cr Clr Drug Dosing Est GFR ( Amer) ml/min Est GFR (Non-Af Amer) ml/min BUN/Creatinine Ratio (10-20) Glucose (70-99(Fasting)) mg/dl POC Glucose (other) (70-99) mg/dl Calcium (8.5-10.1) mg/dl POC Ioniz Calcium Lee (1.12-1.32) mmol/l Magnesium (1.7-2.4) mg/dl Total Bilirubin (0.2-1.0) mg/dl AST (13-39) U/L ALT (7-52) U/L Alkaline Phosphatase (34-104) U/L Troponin I High Sens (0-14) pg/ml Total Protein (6.0-8.3) gm/dl Albumin (3.4-5.0) gm/dl Globulin (2.5-4.0) gm/dl Albumin/Globulin Ratio (0.9-2) TSH 1.838 (0.300-4.500) uIu/ml Urine Color Yellow Urine Appearance Clear (Clear) Urine pH 5.0 (4.5-7.5) Ur Specific [place] 1.024 (1.000-1.030) Urine Protein 1+ H (Negative) Urine Glucose (UA) Negative (Negative) Urine Ketones Trace H (Negative) Urine Blood Negative (Negative) Urine Nitrite Negative (Negative) Urine Bilirubin Negative (Negative) Urine Urobilinogen Negative (Negative) Ur Leukocyte Esterase Negative (Negative) Urine WBC (Auto) 1-5 (0-5) /hpf Urine RBC (Auto) 0-4 (0-4) /hpf U Hyaline Cast (Auto) 1-5 (0-5) /lpf U Epithel Cells (Auto) 10-20 H (0-5) /lpf Urine Bacteria (Auto) Negative (Negative) SARS-CoV-2, RNA, NAAT NEGATIVE (NEGATIVE) 06/11/22 Range/Units 18:29 WBC (4.8-10.8) K/ul RBC (3.93-5.22) M/uL Hgb (12.0-16.0) g/dl POC Hgb 15.0 (12.0-16.0) g/dl Hct (34.1-44.9) % POC Hct 44 (37-47) % MCV (80.0-100.0) fL MCH (25.0-34.0) pg MCHC (32.0-36.0) g/dL RDW Std Deviation (36.4-46.3) fL RDW Coeff of Ara (11.5-14.5) % Plt Count (130-400) K/uL MPV (9.4-12.3) fL Immature Gran % (Auto) % Neut % (Auto) % Lymph % (Auto) % Grant % (Auto) % Eos % (Auto) % Baso % (Auto) % Neut # (Auto) (1.4-6.5) K/uL Lymph # (Auto) (1.2-3.4) K/uL Grant # (Auto) (0.24-0.82) K/uL Eos # (Auto) (0-0.50) K/uL Baso # (Auto) (0-0.2) K/uL Immature Gran # (Auto) (0.00-0.02) K/uL PT (9.0-12.0) Seconds INR (0.9-1.1) POC Sodium 142 (135-144) mmol/L Sodium (136-145) mmol/L POC Potassium 4.5 (3.3-5.0) mmol/L Potassium (3.5-5.1) mmol/L POC Chloride 107 (101-112) mmol/L Chloride (98-107) mmol/L Carbon Dioxide (21-32) mmol/L POC Total CO2 24 (24-31) mmol/L Anion Gap (3-11) POC Anion Gap 16.0 (16-25) mmol/L POC BUN 27 H (7-18) mg/dl BUN (6-23) mg/dl Creatinine (0.6-1.2) mg/dl POC Creatinine 1.1 (0.6-1.3) mg/dl Est Cr Clr Drug Dosing Est GFR ( Amer) ml/min Est GFR (Non-Af Amer) ml/min BUN/Creatinine Ratio (10-20) Glucose (70-99(Fasting)) mg/dl POC Glucose (other) 106 H (70-99) mg/dl Calcium (8.5-10.1) mg/dl POC Ioniz Calcium Lee 1.21 (1.12-1.32) mmol/l Magnesium (1.7-2.4) mg/dl Total Bilirubin (0.2-1.0) mg/dl AST (13-39) U/L ALT (7-52) U/L Alkaline Phosphatase (34-104) U/L Troponin I High Sens (0-14) pg/ml Total Protein (6.0-8.3) gm/dl Albumin (3.4-5.0) gm/dl Globulin (2.5-4.0) gm/dl Albumin/Globulin Ratio (0.9-2) TSH (0.300-4.500) uIu/ml Urine Color Urine Appearance (Clear) Urine pH (4.5-7.5) Ur Specific [place] (1.000-1.030) Urine Protein (Negative) Urine Glucose (UA) (Negative) Urine Ketones (Negative) Urine Blood (Negative) Urine Nitrite (Negative) Urine Bilirubin (Negative) Urine Urobilinogen (Negative) Ur Leukocyte Esterase (Negative) Urine WBC (Auto) (0-5) /hpf Urine RBC (Auto) (0-4) /hpf U Hyaline Cast (Auto) (0-5) /lpf U Epithel Cells (Auto) (0-5) /lpf Urine Bacteria (Auto) (Negative) SARS-CoV-2, RNA, NAAT (NEGATIVE) Administered Medications Discontinued Medications Ioversol (Optiray 300 500ml) 111 ml IV ONCE ONE Stop: 06/11/22 19:04 Last Admin: 06/11/22 19:03 Dose: 111 ml Documented By: KAMAR Labetalol HCl (Labetalol Hcl Iv 5 Mg/Ml 20ml) 10 mg IV NOW STA Stop: 06/11/22 19:20 Last Admin: 06/11/22 19:32 Dose: 10 mg Documented By: ELY Co-signed By: QGV Imaging Data Radiologist's Impression: Chest X-Ray 06/11/22 18:00 XR chest 1V portable CLINICAL HISTORY: weakness TECHNIQUE: Single frontal radiograph of the chest was obtained. Comparison: Comparison is made to chest radiograph 04/14/2022 FINDINGS: Stable appearance of battery-powered device. The aorta is tortuous. The remainde r of the cardiomediastinal silhouette is unremarkable. The lungs are clear. No evidence of pleural effusion or pneumothorax. IMPRESSION: No acute chest disease. ACT 112: Negative or not required by law. Electronically signed by: Ermias Sutherland M.D. 06/11/2022 6:[address] 06/11/22 18:00 CT head/brain wo con CLINICAL HISTORY: ams Technique: Contiguous axial CT images of the head were acquired from the base of the skull to the vertex without intravenous contrast administration. Images were viewed in brain, subdural and bone windows. Automated dose lowering techniques and/or adjustment according to patient size were utilized for this exam. Comparison: Comparison is made to CT head 04/15/2022 Findings: The ventricles, basal cisterns, and cerebral sulci are normal. There is no acute intracranial hemorrhage or evidence of acute territorial infarction. Neither mass effect, shift of the midline structures, nor abnormal extra-axial fluid collections are shown. Deep brain stimulation electrodes are noted. Imaged portions of the paranasal sinuses and mastoid air cells are clear. The orbits appear normal. There are no acute fractures of the calvaria or scalp swelling. Impression: No acute intracranial hemorrhage, no evidence of acute territorial infarction or other acute intracranial disease process. ACT 112: Negative or not required by law. Electronically signed by: Ermias Sutherland M.D. 06/11/2022 7:08 PM Head CTA 06/11/22 18:00 CT angio head w con, CT angio neck with con CLINICAL HISTORY: ams/weak TECHNIQUE: CT angiography of the head and neck was performed following intravenous administration of iodinated contrast. Coronal and sagittal MIPS were obtained from the axial data set and were submitted for review. Automated dose lowering techniques and/or adjustment according to patient size were utilized for this examination. All measurements were calculated based on NASCET criteria. CT DOSE: 889.54 mGy.cm Comparison: None available at the time of this dictation. FINDINGS: Multinodular thyroid with nodules measuring up to 26 mm in diameter. CTA Neck: A 3 vessel aortic arch is shown. There is no significant atherosclerotic plaque in the aortic arch or the origins of the innominate, left common carotid, and left subclavian arteries. The common carotid, external carotid, cervical segments of the internal carotid arteries, and the cervical segments of the vertebral arteries are patent without hemodynamically significant stenosis. The right vertebral artery is dominant. CTA Head: The anterior and posterior cerebral circulations are patent. No hemodynamically significant stenosis, aneurysm, dissection, or arteriovenous malformation is shown. origin of the left posterior cerebral artery is seen. IMPRESSION: 1. No occlusion, hemodynamically significant stenosis, or dissection in the major cervical arteries. 2. No occlusion, hemodynamically significant stenosis, aneurysm, dissection, or arteriovenous malformation in the major intracranial arteries. Assessment of stenosis of the internal carotid arteries is based on NASCET criteria. ACT 112: Negative or not required by law. Electronically signed by: Ermias Sutherland M.D. 06/11/2022 7:24 PM Neck CTA 06/11/22 18:00 CT angio head w con, CT angio neck with con CLINICAL HISTORY: ams/weak TECHNIQUE: CT angiography of the head and neck was performed following intravenous administration of iodinated contrast. Coronal and sagittal MIPS were obtained from the axial data set and were submitted for review. Automated dose lowering techniques and/or adjustment according to patient size were utilized for this examination. All measurements were calculated based on NASCET criteria. CT DOSE: 889.54 mGy.cm Comparison: None available at the time of this dictation. FINDINGS: Multinodular thyroid with nodules measuring up to 26 mm in diameter. CTA Neck: A 3 vessel aortic arch is shown. There is no significant at herosclerotic plaque in the aortic arch or the origins of the innominate, left common carotid, and left subclavian arteries. The common carotid, external carotid, cervical segments of the internal carotid arteries, and the cervical segments of the vertebral arteries are patent without hemodynamically significant stenosis. The right vertebral artery is dominant. CTA Head: The anterior and posterior cerebral circulations are patent. No hemodynamically significant stenosis, aneurysm, dissection, or arteriovenous malformation is shown. origin of the left posterior cerebral artery is seen. IMPRESSION: 1. No occlusion, hemodynamically significant stenosis, or dissection in the major cervical arteries. 2. No occlusion, hemodynamically significant stenosis, aneurysm, dissection, or arteriovenous malformation in the major intracranial arteries. Assessment of stenosis of the internal carotid arteries is based on NASCET criteria. ACT 112: Negative or not required by law. Electronically signed by: Ermias Sutherland M.D. 06/11/2022 7:24 PM Discharge Plan Visit Data Chief Complaint: Weakness ED Provider: Bandar Stanford Discharge Problem: AMS (altered mental status), HTN (hypertension), Parkinsons disease Patient Disposition: Being Evaluated by Hospitalist Forms Stand Alone Forms: My [facility] Prescriptions Prescriptions: No Action amantadine HCl 100 mg capsule 100 mg PO BID Rx Instructions: take am & afternoon simvastatin 20 mg tablet 20 mg PO HS Rytary 48.75-195 mg capsule, extended release See Rx Instructions .ROUTE .COMPLEX Rx Instructions: TAKE 2 CAPS QAM, 1 CAP IN THE AFTERNOON, AND 1 CAP IN THE EVENING doses 5 hours apart furosemide 20 mg tablet 20 mg PO DAILY PRN (Reason: wt gain) Rx Instructions: or increased swelling, or increased shortness of breath carboxymethylcellulose sodium [Refresh Plus] 0.5 % Dropperette 1 drp OPHTHALMIC (EYE) HS quetiapine 25 mg tablet 50 mg PO HS Rx Instructions: per Dr. hanna docusate sodium 100 mg Capsule 100 mg PO BID PRN (Reason: constipation) Qty: 30 0RF polyethylene glycol 3350 [Miralax] 17 gram Powder In Packet 17 g PO DAILY PRN (Reason: constipation) Qty: 30 0RF Referrals Referrals: Jose Colindres MD [Primary Care Provider] -
[2022-06-11 18:32] LABS: Basophils # (auto) 0.03 K/uL (0-0.2); Basophils % (auto) 0.5 %; Eosinophils # (auto) 0.06 K/uL (0-0.50); Hematocrit (blood only) 42.8 % (34.1-44.9); Hemoglobin 13.9 g/dl (12.0-16.0); Immature Granulocytes # (auto) 0.02 K/uL (0.00-0.02); Immature Granulocytes % (auto) 0.3 %; Lymphocytes # (auto) 1.66 K/uL (1.2-3.4); Lymphocytes % (auto) 26.5 %; Mean Corpuscular Hemoglobin 30.4 pg (25.0-34.0); Mean Corpuscular Hgb Conc 32.5 g/dL (32.0-36.0); Mean Corpuscular Volume 93.7 fL (80.0-100.0); Mean Platelet Volume 9.9 fL (9.4-12.3); Monocytes # (auto) 0.47 K/uL (0.24-0.82); Monocytes % (auto) 7.5 %; Neutrophils # (auto) 4.03 K/uL (1.4-6.5); Neutrophils % (auto) 64.2 %; Platelet Count 299 K/uL (130-400); RDW Standard Deviation 44.6 fL (36.4-46.3); Red Blood Count 4.57 M/uL (3.93-5.22); White Blood Count 6.27 K/ul (4.8-10.8)
[2022-06-11 18:42] LABS: Prothrombin Time 10.3 Seconds (9.0-12.0)
--- NOTE | 2022-06-11 18:55 | XRay Report ---
XR chest 1V portable CLINICAL HISTORY: weakness TECHNIQUE: Single frontal radiograph of the chest was obtained. Comparison: Comparison is made to chest radiograph 04/14/2022 FINDINGS: Stable appearance of battery-powered device. The aorta is tortuous. The remainder of the cardiomedias tinal silhouette is unremarkable. The lungs are clear. No evidence of pleural effusion or pneumothora x. IMPRESSION: No acute chest disease. ACT 112: Negative or not required by law. Electronically signed by: Ermias Sutherland M.D. 06/11/2022 6:53 PM
[2022-06-11 19:03] LABS: Troponin I High Sensitivity 10.5 pg/ml (0-14)
[2022-06-11] MEDS ORDERED: OPTIRAY 300 500mL IV ONE (19:03)
[2022-06-11 19:12] LABS: Anion Gap 10 (3-11); BUN Creatinine Ratio 23.1 (10-20); Blood Urea Nitrogen 25 mg/dl (6-23); Calcium 9.5 mg/dl (8.5-10.1); Carbon Dioxide 23 mmol/L (21-32); Chloride 109 mmol/L (98-107); Est GFR (African American) 56.1 ml/min; Est GFR (Non-African American) 48.4 ml/min; Glucose 101 mg/dl (70-99(Fasting)); Potassium 4.8 mmol/L (3.5-5.1); Sodium 142 mmol/L (136-145)
--- NOTE | 2022-06-11 19:15 | CT Scan Report ---
CT head/brain wo con CLINICAL HISTORY: ams Technique: Contiguous axial CT images of the head were acquired from the base of the skull to the ken whit without intravenous contrast administration. Images were viewed in brain, [facility] and [facility] Automated dose lowering techniques and/or adjustment according to patient size were utilized for this exam. Comparison: Comparison is made to CT head 04/15/2022 Findings: The ventricles, basal cisterns, and cerebral sulci are normal. There is no acute intracranial hemorrh age or evidence of acute territorial infarction. Neither mass effect, shift of the midline structures , nor abnormal extra-axial fluid collections are shown. Deep brain stimulation electrodes are noted. Imaged portions of the paranasal sinuses and mastoid air cells are clear. The orbits appear normal. There are no acute fractures of the calvaria or scalp swelling. Impression: No acute intracranial hemorrhage, no evidence of acute territorial infarction or other acute intracra nial disease process. ACT 112: Negative or not required by law. Electronically signed by: Ermias Sutherland M.D. 06/11/2022 7:08 PM
[2022-06-11] MEDS ORDERED: LABETALOL HCL IV 5 MG/ML 20ML IV STA (19:19)
[2022-06-11 19:21] LABS: iSTAT Creatinine 1.1 mg/dl (0.6-1.3); iSTAT Ionized Calcium 1.21 mmol/l (1.12-1.32); iSTAT Potassium 4.5 mmol/L (3.3-5.0)
[2022-06-11 19:22] LABS: Alanine Aminotransferase < 3 U/L (7-52); Albumin Globulin Ratio 1.6 (0.9-2); Albumin Level 4.1 gm/dl (3.4-5.0); Alkaline Phosphatase 94 U/L (34-104); Aspartate Aminotransferase 19 U/L (13-39); Bilirubin,Total 0.8 mg/dl (0.2-1.0); Globulin 2.6 gm/dl (2.5-4.0); Magnesium 2.1 mg/dl (1.7-2.4); Total Protein 6.7 gm/dl (6.0-8.3)
--- NOTE | 2022-06-11 19:26 | CT Scan Report ---
CT angio head w con, CT angio neck with con CLINICAL HISTORY: ams/weak TECHNIQUE: CT angiography of the head and neck was performed following intravenous administration of iodinated contrast. Coronal and sagittal MIPS were obtained from the axial data set and were submitte d for review. Automated dose lowering techniques and/or adjustment according to patient size were ut ilized for this examination. All measurements were calculated based on NASCET criteria. CT DOSE: 889.54 mGy.cm Comparison: None available at the time of this dictation. FINDINGS: Multinodular thyroid with nodules measuring up to 26 mm in diameter. CTA Neck: A 3 vessel aortic arch is shown. There is no significant atherosclerotic plaque in the aor tic arch or the origins of the innominate, left common carotid, and left subclavian arteries. The c ommon carotid, external carotid, cervical segments of the internal carotid arteries, and the cervical segments of the vertebral arteries are patent without hemodynamically significant stenosis. The righ t vertebral artery is dominant. CTA Head: The anterior and posterior cerebral circulations are patent. No hemodynamically significan t stenosis, aneurysm, dissection, or arteriovenous malformation is shown. origin of the left po sterior cerebral artery is seen. IMPRESSION: 1. No occlusion, hemodynamically significant stenosis, or dissection in the major cervical arteries. 2. No occlusion, hemodynamically significant stenosis, aneurysm, dissection, or arteriovenous malfor mation in the major intracranial arteries. Assessment of stenosis of the internal carotid arteries is based on NASCET criteria. ACT 112: Negative or not required by law. Electronically signed by: Ermias Sutherland M.D. 06/11/2022 7:24 PM
[2022-06-11 20:22] LABS: Appearance Urine Clear (Clear); Bacteria Urine Automated Negative (Negative); Bilirubin Urine Negative (Negative); Blood Urine Negative (Negative); Color Urine Yellow; Glucose Urine UA Negative (Negative); Ketones Urine Trace (Negative); Leukocyte Esterase Urine Negative (Negative); Nitrite Urine Negative (Negative); Protein Urine 1+ (Negative); RBC Urine Automated 0-4 /hpf (0-4); Specific Gravity Urine 1.024 (1.000-1.030); Urobilinogen Urine Negative (Negative)
[2022-06-12] MEDS ORDERED: DOCUSATE SODIUM 100 MG CAP PO PRN (00:35)
[2022-06-12] MEDS ORDERED: FUROSEMIDE 20 MG TAB PO PRN (00:35)
[2022-06-12] MEDS ORDERED: POLYETHYLENE (MIRALAX) 17 GM PACK PO PRN (00:35)
[2022-06-12] MEDS ORDERED: NITROGLYCERIN SL 0.4 MG/TAB TAB SL PRN (00:35)
[2022-06-12] MEDS ORDERED: ACETAMINOPHEN 325 MG TAB PO PRN (00:35)
[2022-06-12] MEDS: SODIUM CHLORIDE 0.9% 1000ML 1,000 ML IV SCH ×2 (02:21→15:04)
--- NOTE | 2022-06-12 03:20 | History and Physical Report ---
DATE OF ADMISSION: 06/11/2022. CHIEF COMPLAINT: Weakness. HISTORY OF PRESENT ILLNESS: This is an 81-year-old female with past medical history significant for hyperlipidemia, prediabetes, chronic diastolic CHF due to valvular heart disease, nonrheumatic aortic valve insufficiency, tricuspid valve regurgitation, mitral regurgitation, orthostatic hypotension, pulmonary hypertension, hypertension, history of kidney stones on the left side, history of chronic kidney disease stage III, restless legs syndrome, Parkinson's disease, sicca syndrome, positive ZARA antibody, who lives at home with her , was brought in because of weakness. The patient's says the patient's Parkinson symptoms getting worse for the last 2 days. She has speech problems, but now speaking in very low voice hard to understand, she is not even moving from the bed, not eating much.. So she was brought to the hospital. The patient is currently lethargic, not opening eyes, could tell her name and only answering no to all the questions, not able to obey any commands. Her imaging studies are unremarkable. The patient has DBS in the anterior chest. She was here in March with frequent falls. At that time her EEG was unremarkable. She was seen by neurology.Today in ER her blood pressure is running high, received labetalol in the ER. As per the , there is no fever, no cough, no nausea, no vomiting, no blood in stools or black stools. Micturating okay. He thinks she is not able to express but thinks she has some upper back pain,.Could not give much history. ALLERGIES: No known drug allergies. PAST MEDICAL HISTORY: As mentioned above. PAST SURGICAL HISTORY: Cardiac catheterization, colonoscopy, colonoscopy with biopsy, right elbow tendon repair, laparoscopic surgical lysis of adhesions, partial hysterectomy, bilateral cataract surgery. MEDICATIONS: The patient is on amantadine 100 mg p.o. b.i.d., Colace 100 mg p.o. b.i.d. p.r.n., Lasix 20 mg p.o. daily p.r.n., gabapentin 400 mg p.o. at bedtime, MiraLax 17 grams p.o. daily p.r.n., Seroquel 50 mg p.o. at bedtime, Rytary 2 tablets a.m., 1 capsule in the afternoon, 1 capsule in the evening, 5 hours apart, simvastatin 20 mg p.o. at bedtime. FAMILY HISTORY: Significant for mother has rheumatoid arthritis, HI. Father has HI. Brother has HI. Sister has melanoma. Brother has melanoma. SOCIAL HISTORY: , no smoking, no alcohol, no drug use. REVIEW OF SYSTEMS: Unobtainable at this time. PHYSICAL EXAMINATION: GENERAL: The patient is old and frail, seems somewhat lethargic. VITAL SIGNS: Temperature 36.5, pulse 67, respiratory rate 16, blood pressure 167/91, oxygen 98% on room air. HEENT: Pupils equal, round and reactive to light. Oral mucosa dry. NECK: No JVD or neck masses. CARDIOVASCULAR: S1 and S2 heard, regular rate and rhythm. No murmur, no gallop. RESPIRATORY SYSTEM: Normal AP diameter. No accessory muscle use. No wheezing or crackles. ABDOMEN: Soft, bowel sounds present, nontender, no distention. CENTRAL NERVOUS SYSTEM: Oriented to name only, does not obey commands. Speech is very low. EXTREMITIES: No edema, no erythema. LABORATORY DATA: WBC 6.2, hemoglobin 13.9, hematocrit 42.8, platelets 299. PT 10.3, INR 1. Sodium 142, potassium 4.8, chloride 109, CO2 23, BUN 25, creatinine 1.08, serum glucose 101, calcium 9.5, magnesium 2.1, total bilirubin 0.8, AST 19, ALT <3, alkaline phosphatase 94. Troponin I high sensitivity 1.5. TSH 1.8. Urinalysis negative. SARS-CoV-2 rapid test negative. IMAGING DATA: CTA of the head and neck, no acute findings. CT of the head without contrast, no acute findings. Chest x-ray, no acute disease in the chest. EKG: Normal sinus rhythm at a rate of 75, no acute disease seen. ASSESSMENT AND PLAN: This is an 81-year-old female who presents with confusion and lethargy. 1. Lethargy, confusion, weakness, history of Parkinson's, only speaking in low voices, seems to only oriented to her name. Imaging studies are unremarkable. CTA of the head and neck and CT of the head were unremarkable. The patient has DBS in anterior chest for Parkinson's, questionable MRI compatibility. Consult Neurology in the a.m. We will also do EEG. She has history of frequent falls in March. At that time, workup was unremarkable. but at this time, the symptoms seem to got worse. No signs of any active infection at this time, but will monitor. We will keep her n.p.o. for now. Neuro consult in a.m. Speech evaluation when stable. Continue home medication of Rytary and amantadine for now. 2. Hypertension. The patient has history of orthostatic hypotension. Was not on antihypertensive therapy. Currently, received a dose of labetalol in the ER. Continue labetalol p.r.n. for now. 3. Chronic kidney disease, stage III: Presently creatinine of 1.08. We will follow the labs. 4. Moderate malnutrition. Nutrition assessment when stable. 5. Deep venous thrombosis prophylaxis: We will place her on sequential compression devices for now. DISPOSITION: Closely monitor in the [place]. PT/OT prior to discharge. Social Service to help with discharge planning. CODE STATUS: Full code only if there is a chance of recovery. Discussed with her . Job ID: [id number] [id number]
[2022-06-12 05:05] LABS: Basophils # (auto) 0.04 K/uL (0-0.2); Basophils % (auto) 0.5 %; Eosinophils # (auto) 0.07 K/uL (0-0.50); Eosinophils % (auto) 0.9 %; Hematocrit (blood only) 39.4 % (34.1-44.9); Hemoglobin 13.1 g/dl (12.0-16.0); Immature Granulocytes # (auto) 0.02 K/uL (0.00-0.02); Immature Granulocytes % (auto) 0.3 %; Lymphocytes # (auto) 1.33 K/uL (1.2-3.4); Lymphocytes % (auto) 17.9 %; Mean Corpuscular Hemoglobin 30.5 pg (25.0-34.0); Mean Corpuscular Hgb Conc 33.2 g/dL (32.0-36.0); Mean Corpuscular Volume 91.8 fL (80.0-100.0); Mean Platelet Volume 9.3 fL (9.4-12.3); Monocytes # (auto) 0.52 K/uL (0.24-0.82); Neutrophils # (auto) 5.43 K/uL (1.4-6.5); Neutrophils % (auto) 73.4 %; Platelet Count 286 K/uL (130-400); RDW Coefficient of Variation 13.1 % (11.5-14.5); RDW Standard Deviation 44.1 fL (36.4-46.3); Red Blood Count 4.29 M/uL (3.93-5.22); White Blood Count 7.41 K/ul (4.8-10.8)
[2022-06-12 05:28] LABS: Base Excess ABG -1.4 mEq/L (-9-1.8); HCO3 ABG 23 mmol/L (19-24); Oxygen Saturation ABG 90.6 % (90-95); PCO2 ABG 36 mmHg (35-46); PO2 ABG 56 mmHg (80-95); pH ABG 7.41 (7.35-7.45)
[2022-06-12 05:33] LABS: Allen Test POS (Pos)
[2022-06-12 05:34] LABS: Anion Gap 10 (3-11); BUN Creatinine Ratio 26.8 (10-20); Blood Urea Nitrogen 22 mg/dl (6-23); Calcium 9.2 mg/dl (8.5-10.1); Carbon Dioxide 21 mmol/L (21-32); Chloride 108 mmol/L (98-107); Est GFR (African American) 78.3 ml/min; Est GFR (Non-African American) 67.6 ml/min; Glucose 103 mg/dl (70-99(Fasting)); Potassium 4.4 mmol/L (3.5-5.1); Sodium 139 mmol/L (136-145)
[2022-06-12] MEDS ORDERED: NIFEdipine EXTENDED REL 30 MG TABCR PO STA ×2 (07:02→09:35)
[2022-06-12 08:11] LABS: Estimated Average Glucose 126 mg/dl
--- NOTE | 2022-06-12 09:17 | Neurology Consultation ---
Date of Consultation June 12, 2022 Assessment & Plan (1) Parkinsons disease: (2) Acute encephalopathy: (3) Cogwheel rigidity: (4) Resting tremor: (5) Bradykinesia: (6) Numbness and tingling of left arm and leg: (7) HTN (hypertension): (8) AMS (altered mental status): Plan This is a very complicated patient neurologically. The patient has an advance/end-stage Parkinson's disease. She has tried and failed multiple medications and is currently on Rytary. Unfortunately, she looks very bradykinetic with severe cogwheel rigidity. Her tremor is mild. She probably would benefit from increased Rytary dosing. However, she gets significant side effects to the medication including visual hallucinations and lightheadedness with standing / orthostasis. In addition, increasing Parkinson's medications will make her more confused. she has bilateral deep brain stimulation with an implanted pulse generator ( IPG ) According to the history, she has an acute encephalopathy over the last few days of uncertain etiology. The EEG confirms a moderate generalized encephalopathy. also, on examination she displays subtle deficits of sensation and function of the left arm and leg greater than the right. This could imply a stroke/ central nervous system issue on the right. She has hypertension not adequately controlled. Recommendations: 1. I would like to get an MRI of the brain on this patient but I am not certain if her deep brain stimulation leads or IPG allow this. We could try to check this with [employer]. I also have a call into the movement Disorder Clinic at [facility] for this question as well. 2. normally, In a patient such as this, I would increase Rytary to 2 tablets 4 times a day to see if this mobilizes her limbs and allows her to ambulate and function better. Unfortunately, this may increase her confusion, hallucina tions, and orthostasis. Therefore, I will recommend increasing her Rytary to 2 tablets 3 times a day and we will watch her mental status, hallucinations, and orthostasis. 3. I am uncertain why she is on Seroquel instead of pimavanserin (Nuplazid), which is a hallucinations specific medication for Parkinson's disease. It gives less Parkinson's side effects than the neuroleptics. I would avoid making this switch in the inpatient setting and would save this for outpatient. 4. keep off amantadine. 5. physical, occupational, and speech therapy consult. She may eventually benefit from an inpatient rehabilitation hospital stay as well I will follow this patient while she is in the hospital. Overall, I spent a total of 100 minutes with this case including review of records, review of CT films, direct evaluation of patient at bedside, and discussion the case with the patient and RN at bedside, via telephone, and Dr. Wright including differential diagnosis and treatment options. History of Present Illness Reason for Consultation: Patient is an 81 year old, who I was asked to see at the request of Dr. Clarke, for neurologic consultation regarding altered mental status and Parkinson's disease. Requesting Physician: Dr. Clarke Attending Physician: Efren Wright MD History of Present Illness This patient has a history of Parkinson's disease with the onset of symptoms in 2007. She presented with right leg tremor. She is currently being followed at [facility] at [facility] by Dr. Ramos . Over time, she has failed various forms of carbidopa/levodopa, selegiline, Exelon patch, Comtan, Neupro patch, Requip, benztropine, Artane, and Lodosyn. Currently, she has been on Rytary 48.75/195, 2 tablets in the morning, 1 in the afternoon, and 1 in the evening. She also was taking amantadine 100 mg twice a day. the patient had a bilateral deep brain stimulation implanted December 31, 2020. And IPG was implanted January 07, 2021. She has a diagnosis of Parkinson's psychosis with history of hallucinations currently on Seroquel 50 mg evening. In mid March the patient was admitted to [facility] after episodes of falling (questionably hitting her head ) leaning to the right and having slurred speech. She had a staring spell for 1 minutes it was presumed. She had an EEG which was normal awake and drowsy. Laboratory studies were unremarkable as well. CT scan of the head was unremarkable and CT angiography of the head and neck were normal with no stenoses or vessel anomalies. She was discharged on April 16 after a 2 day stay and she was improved. The patient herself cannot give any type of meaningful history but I did speak to the patient's via telephone. She went to [facility] to the movement Disorder Clinic May 01. She was evaluated and her deep brain stimulator was interrogated and found to be operating quite well. Because of her visual hallucinations which were fairly frequent ( seeing people) , the patient's stated that amantadine was stopped and she has been off this for the last 5 weeks. He believes her visual hallucinations are little better off this medication. She was doing "pretty good" according to the over most of April. This means that she was mobile /walking, not falling, good strong speech and having minimal hallucination. She might have a little bit of lightheadedness with standing but she had no syncope. Two weeks ago she had her went on a vacation in [place] for 1 week. She got a little bit "worn out". However, she went to the [employer] football game June 07 and did fairly well. Since then she has had a gradual decline with mobility and functioning with her limbs. She has been stiffer and slower and her speech is been softer. He does not believe she is having more hallucinations or lightheadedness with standing. The patient has a history of dyslipidemia, diabetes, diastolic congestive heart failure, cardiac valve insufficiency and regurgitation and orthostasis. She has a history of hypertension, left renal stones, chronic kidney disease, restless l egs syndrome, and sicca syndrome with positive ZARA. Around noon time June 11 patient's noted the patient was getting more confused and had some slurred speech as well as the stiffness and slowness. She arrived to the emergency room June 11 at 6:14 p.m., with a temperature 36.5, pulse 75 regular, respiratory rate 21, blood pressure 180/67, and O2 saturation 97%. She had soft speech in questionable responsiveness. She was stiff and slow. CBC and Chem profile were largely unremarkable. TSH was unremarkable as was a urinalysis. Chest x-ray was unremarkable. CT scan of the head showed no acute changes CT angiography of the head neck was unchanged compared to March. There is a concern that patient cannot get an MRI because of her deep brain stimulator and IPG. The patient and the do not know this. Patient herself feels weak and tired. She is not dizzy and she is not in any pain when she is lying in bed. When she is moved up in the bed to a sitting position she has significant low back pain. When her limbs are moved she has some proximal joint pain. Today, ammonia was normal, calcium magnesium CBC and Chem profile were all unremarkable. blood pressure remains elevated at 190 7/77 but she is afebrile with a normal pulse in the 80s. Allergies Allergy/AdvReac Type Severity Reaction Status Date / Time No Known Allergies Allergy Verified 04/14/22 21:30 Home Medications Medication Instructions Recorded Confirmed Type amantadine HCl 100 mg capsule 100 mg PO BID 09/04/20 06/11/22 History carbidopa ER 48.75 mg-levodopa 195 See Rx Instructions .Route .COMPLEX 09/04/20 06/11/22 History mg capsule,extended release (Rytary) simvastatin 20 mg tablet 20 mg PO HS 09/04/20 06/11/22 History furosemide 20 mg tablet 20 mg PO DAILY PRN wt gain 01/23/21 06/11/22 History carboxymethylcellulose sodium 0.5 1 drp ophthalmic (eye) HS 03/26/21 06/11/22 History % eye drops in a dropperette (Refresh Plus) quetiapine 25 mg tablet 50 mg PO HS 04/14/22 06/11/22 History docusate sodium 100 mg capsule 100 mg PO BID PRN constipation #30 04/16/22 06/11/22 Rx caps polyethylene glycol 3350 17 gram 17 g PO DAILY PRN constipation #30 04/16/22 06/11/22 Rx oral powder packet (Miralax) ea gabapentin 400 mg PO HS 06/11/22 06/11/22 History Patient History Medical History Falls frequently Hyperlipidemia Hypertension One time episode- no longer has HTN Recent orthostatic hypotension - seen in ER on 03/26/21- was taken off Amlodipine Kidney stones Mitral valve prolapse follows with [facility] Cardiology ([facility]) Nausea and vomiting after administration of anesthetic agent Nephrolithiasis Parkinsons disease Follows with neuro - [facility] On four week trial with brain stimulator with changing rates Presence of brain neurostimulator device Vitamin D deficiency Surgical History History of cardiac cath ~s. no stents. History of cataract surgery bilateral History of colonoscopy S/P insertion of brain-responsive neurostimulation device Deep brain [facility] Placed for Parkinson's Disease. Advised to bring any remotes/manuals to hospital for surgery S/P ARNAUD (total abdominal hysterectomy) with RSO S/P tendon repair Left tricep tendon repair Family History Other No family history of adverse response to anesthesia Social History (Updated 06/12/22 @ 09:07 by Rafael Bowling MD) Smoking Status: Unknown if ever smoked Second Hand Exposure: No; Hx Alcohol Use: No Hx Substance Use: No Preferred Language: Scottish Communication Ability: Effective Testboard Operator Required: No Beliefs That Will Affect Care: None marital status: Current Living Situation: Spouse Current Living Situation Comment: Lives at the [facility] current occupational status: retired current occupation: former psychiatric nurse, [employer] area Feels Safe at Home: Yes Assistive Devices: Cane and Walker Review of Systems Review of Systems: review of systems is difficult to obtain because of her decreased ability to communicate well and some confusion. Constitutional: + fatigue and + weakness; no fever Eyes: no diplopia, no eye pain and no worsening vision Ear, Nose, Mouth, Throat: no ear pain, no tinnitus, no hearing loss, no dizziness, no snoring, no hoarseness and no dysphagia Respiratory: no cough and no dyspnea Cardiovascular: no chest pain, no palpitations and no lightheadedness Gastrointestinal: no abdominal pain, no nausea and no vomiting Genitourinary: no dysuria, no urinary frequency and no urinary incontinence Musculoskeletal: + back pain and + joint pain; no neck pain, no radicular pain and no myalgia Integumentary: no rash and no lesions Neurologic: + gait abnormality, + tremor(s), + abnormal movements, + confusion and + memory loss; no localized weakness, no generalized weakness, no tingling, no numbness, no headache(s) and no abnormal speech Psychiatric: no depression, no irritability, no anxiety, no difficulty concentrating, no confusion and no hallucinations Endocrine: no fatigue and no flushing Hematologic / Lymphatic: no easy bleeding and no easy bruising Allergy / Immunological: no urticaria and no problem reported Exam (Neuro) Physical Exam: The patient is right-handed. The patient is awake, alert, and attentive. Speech is Very soft and very mumbling at times. Most the time I can make out words but sometimes I cannot. She tends to follow one-step commands fairly well but she can have a delayed reaction to the command or question. The patient can name objects and colors, as well as repeat simple phrases. she has little spontaneous speech. Her memory and cognitive function are very difficult to figure out. At sometime she will answer questions and do things correctly another time she seems a little confused. She knew her name but did not know her age, where she lived, the month, the year. The discs are sharp with positive venous pulsations bilaterally. Pupils are 3 mm bilaterally and reactive to light. Extraocular eye muscles are intact without nystagmus. Visual acuity and visual wilkes seem normal grossly to confrontation. There are no deficits to sensation in the face in all 3 distributions of the fifth cranial nerve bilaterally. Corneal reflexes are positive bilaterally. she has a decreased blink rate and a masklike face of markedly sure. She has a positive glabellar sign. I am not sure that the right corner of the mouth moves well with some voluntary smile but this was a little inconsistent. The left side seemed to come up nicely. Hearing seems normal bilaterally. Palate moves well without asymmetry. There is normal sternocleidomastoid and trapezius (shoulder shrug) strength bilaterally. Tongue is midline with Reasonable strength bilaterally. Neck is very rigid in all directions and gives her some pain if I try to force too much.. There are no cervical bruits bilaterally. There are no cranial or ocular bruits. Heart is without murmur. There is a regular rhythm and rate. Gait Could not be tested. She could not sit up on her own. When I raise the bed up to get her to a sitting up position, she had increased low back pain. With outstretched arms there is Some drift on the left but not the right. there is some mild intermittent resting tremor in the right hand and right foot. Although she was weak seemingly in both arms proximally, there is no ataxia with finger to nose testing bilaterally. There is decreased facility in the hands bilaterally , but the left is worse than the right. she has some myoclonic jerking movements occasionally in her legs almost like a restlessness. This is not present in her upper extremities. Motor strength 5/5 in the upper extremities including food mixer assembler and intrinsics, forearm muscles and biceps / triceps. Deltoids are difficult to evaluate as she will hold her arms up. Leg strength is close to 5/5 bilaterally proximally and 5/5 bilaterally distally. There is severe rigidity of a cogwheeling nature in all 4 limbs. There is no atrophy noted in the muscles. Muscle bulk is normal, there is no tenderness to palpation, no myotonia to percussion, and no fasciculations seen. Sensory examination Seems intact to pin on the right upper and lower extremity but she has some decreased sensation to pin ( not entirely consistent) in the left leg greater than the left arm. Reflexes are 1/4 in the biceps, triceps, brachioradialis, quadriceps, and Achilles tendons bilaterally. There is no clonus bilaterally. Toes are downgoing with plantar stimulation bilaterally. Peripheral pulses are present and of normal quality distally in all 4 limbs. There is no peripheral edema noted in the limbs. Results & Data ([facility]) Vital Signs (Past 12 Hours) Vital Signs Temp Pulse Pulse Resp BP BP Pulse Ox 06/12/22 08:20 36.8 C 82 18 197/77 H 97 06/12/22 06:00 80 22 98 06/12/22 06:00 209/81 H 06/12/22 05:00 78 16 98 06/12/22 04:08 75 21 97 06/12/22 04:08 179/83 H 06/12/22 04:00 76 23 97 06/12/22 04:00 201/80 H 06/12/22 03:00 75 18 97 06/12/22 02:00 71 20 97 06/12/22 02:00 174/75 H 06/12/22 01:45 71 19 97 06/12/22 01:45 171/82 H 06/12/22 01:00 71 20 96 06/12/22 00:00 71 20 98 06/12/22 00:35 06/12/22 01:46 36.8 C 71 20 171/82 H 98 06/11/22 23:00 69 16 99 06/11/22 22:44 66 20 99 06/11/22 22:44 167/91 H 06/11/22 21:00 67 16 176/67 H 98 Pulse Ox O2 Del Method O2 Del Method 06/12/22 08:20 Room Air 06/12/22 06:00 06/12/22 06:00 06/12/22 05:00 06/12/22 04:08 06/12/22 04:08 06/12/22 04:00 06/12/22 04:00 06/12/22 03:00 06/12/22 02:00 06/12/22 02:00 06/12/22 01:45 06/12/22 01:45 06/12/22 01:00 06/12/22 00:00 06/12/22 00:35 97 Room Air 06/12/22 01:46 Room Air 06/11/22 23:00 Room Air 06/11/22 22:44 06/11/22 22:44 06/11/22 21:00 Room Air PG Care Time/CCT Total # of Minutes Spent Total Time Spent with Patient: Total time spent is greater than 50% in coordination of care (as documented) at patient's floor/unit and/or counseling patient: Coding Level of Care Code 78223 Initial Inpt Care Lvl 3 Diagnoses Parkinsons disease G20 Acute encephalopathy G93.40 Cogwheel rigidity R29.898 Resting tremor G25.2 Bradykinesia R25.8 Numbness and tingling of left arm and leg R20.0; R20.2 HTN (hypertension) I10 AMS (altered mental status) R40.0 Altered mental status type: somnolence Time Spent (min) 100 Comment add Modifiers as able (1) AMS (altered mental status) Altered mental status type: somnolence Qualified Code(s): R40.0 - Somnolence
--- NOTE | 2022-06-12 09:22 | Electroencephalogram ---
EEG Procedure Note Date of Service June 12, 2022 Start / End Times Start Time: 841 End Time: [address] Clarke History 81-year-old woman with severe Parkinson's disease with altered mental status and intermittent confusion, question seizure activity Home Medication List Medication Instructions Recorded Confirmed Type amantadine HCl 100 mg capsule 100 mg PO BID 09/04/20 06/11/22 History carbidopa ER 48.75 mg-levodopa 195 See Rx Instructions .Route .COMPLEX 09/04/20 06/11/22 History mg capsule,extended release (Rytary) simvastatin 20 mg tablet 20 mg PO HS 09/04/20 06/11/22 History furosemide 20 mg tablet 20 mg PO DAILY PRN wt gain 01/23/21 06/11/22 History carboxymethylcellulose sodium 0.5 1 drp ophthalmic (eye) HS 03/26/21 06/11/22 History % eye drops in a dropperette (Refresh Plus) quetiapine 25 mg tablet 50 mg PO HS 04/14/22 06/11/22 History docusate sodium 100 mg capsule 100 mg PO BID PRN constipation #30 04/16/22 06/11/22 Rx caps polyethylene glycol 3350 17 gram 17 g PO DAILY PRN constipation #30 04/16/22 06/11/22 Rx oral powder packet (Miralax) ea gabapentin 400 mg PO HS 06/11/22 06/11/22 History Inpatient Medication List Sodium Chloride (Nss 1000ml) 1,000 mls @ 80 mls/hr IV .[id number] DONATO Stop: 07/12/22 00:34 Last Admin: 06/12/22 02:21 Dose: 80 mls/hr Documented By: AW Discontinued Medications Ioversol (Optiray 300 500ml) 111 ml IV ONCE ONE Stop: 06/11/22 19:04 Last Admin: 06/11/22 19:03 Dose: 111 ml Documented By: KAMAR Labetalol HCl (Labetalol Hcl Iv 5 Mg/Ml 20ml) 10 mg IV NOW STA Stop: 06/11/22 19:20 Last Admin: 06/11/22 19:32 Dose: 10 mg Documented By: KT Co-signed By: RAY Description This is a 21 electrode EEG with a single channel dedicated to limited EKG. The electrodes were placed in accordance with the International 10-20 system. Interpretation The predominant background activity consists of and irregular 5-6 Hz activity, of up to 60 mV in amplitude,seen fairly well symmetrically distributed in all head regions bilaterally. This activity Had no significant attenuation with eye-opening and other alerting procedures. Photic stimulation was performed and elicited no change in the background activity and no abnormal responses were seen. Hyperventilation was not performed. A minimal amount of muscle and movement artifact activity contaminated the recording and did not hinder interpretation to any significant degree. the patient had intermittent tremor of her right arm and foot as well as some jerking movements of the feet from time to time. These produced no electrocerebral accompaniment or even significant artifact. Throughout the waking portion of the recording, no focal abnormalities or potentially epileptogenic discharges are seen. The patient entered the drowsy state with no further activation. In summary, this EEG was Abnormal and showed a moderate generalized slowing with a generalized nonspecific nature. There were no focal abnormalities and no potentially epileptogenic discharges seen. Clinical Correlation The absence of potentially epileptogenic activity does not exclude a seizure disorder, since interictally, EEGs can be normal. The presence of these EEG changes correlate with a moderate encephalopathy which could be due to wide variety of causes. [facility] Codes Indication for Procedure (1) AMS (altered mental status): Neurology Neurology: 85150 EEG include record awake & drowsy
[2022-06-12] MEDS: AMANTADINE HCL 100 MG CAPSULE PO SCH (10:18)
[2022-06-12] MEDS: GABAPENTIN 400 MG CAP PO SCH (20:11)
[2022-06-12] MEDS: QUEtiapine FUMARATE 25 MG TABLET PO SCH (20:11)
[2022-06-12] MEDS: SIMVASTATIN 20 MG TAB PO SCH (20:11)
[2022-06-12] MEDS: ARTIFICIAL TEARS OP SCH (20:12)
--- NOTE | 2022-06-12 21:18 | Electrocardiogram Report ---
Test Reason : Blood Pressure : / mmHG Vent. Rate : 075 BPM Atrial Rate : 075 BPM P-R Int : 118 ms QRS Dur : 084 ms QT Int : 404 ms P-R-T Axes : 054 -04 037 degrees QTc Int : 451 ms Poor data quality, interpretation may be adversely affected Normal sinus rhythm Possible Left atrial enlargement Left ventricular hypertrophy with repolarization abnormality Cannot rule out Septal infarct , age undetermined Abnormal ECG When compared with ECG of 14-APR-2022 18:49, Nonspecific T wave abnormality no longer evident in Lateral leads Confirmed by Haider Adler ([id number]) on 06/12/2022 9:17:45 PM Referred By: REFERRED SELF Confirmed By:Haider Adler
[2022-06-13] MEDS: SODIUM CHLORIDE 0.9% 1000ML 1,000 ML IV SCH (03:45)
[2022-06-13] MEDS: AMANTADINE HCL 100 MG CAPSULE PO SCH (10:34)
[2022-06-13] MEDS: NIFEdipine EXTENDED REL 30 MG TABCR PO SCH (10:35)
--- NOTE | 2022-06-13 10:51 | Neurology Progress Note ---
Date of Service June 13, 2022 Assessment & Plan (1) Parkinsons disease: (2) Acute encephalopathy: (3) Cogwheel rigidity: (4) Resting tremor: (5) Bradykinesia: (6) Numbness and tingling of left arm and leg: (7) HTN (hypertension): (8) AMS (altered mental status): Plan This is a very complicated patient neurologically. The patient has an advance/end-stage Parkinson's disease. She has tried and failed multiple medications and is currently on Rytary. Unfortunately, she looks very bradykinetic with severe cogwheel rigidity. Her tremor is mild. She probably would benefit from increased Rytary dosing. However, she gets significant side effects to the medication including visual hallucinations and lightheadedness with standing / orthostasis. In addition, increasing Parkinson's medications will make her more confused. she has bilateral deep brain stimulation with an implanted pulse generator ( IPG ) -This may not be working or "on" and that is why she is so locked up. According to the history, she has an acute encephalopathy over the last few days of uncertain etiology. The EEG confirms a moderate generalized encephalopathy. also, on examination she displays subtle deficits of sensation and function of the left arm and leg greater than the right. This could imply a stroke/ central nervous system issue on the right. She has hypertension not adequately controlled. Recommendations: 1. I would like to get an MRI of the brain on this patient but I am not certain if her deep brain stimulation leads or IPG allow this. After speaking to the [employer] marketing representative, her deep brain stimulator device should be MRI compatible. will have to bring in the devices for the deep brain stimulator for us to use in conjunction with the [employer] marketing representative to check the deep brain stimulator ( the rep can do it over the phone with the RN at bedside). 2. normally, In a patient such as this, I would increase Rytary to 2 tablets 4 times a day to see if this mobilizes her limbs and allows her to ambulate and function better. Unfortunately, this may increase her confusion, hallucinations, and orthostasis. Therefore, I will recommend increasing her Rytary to 2 tablets 3 times a day and we will watch her mental status, hallucinations, and orthostasis. Since Rytary is not formulary, will bring in her medication and I have informed pharmacy regarding this. 3. I am uncertain why she is on Seroquel instead of pimavanserin (Nuplazid), which is a hallucinations specific medication for Parkinson's disease. It gives less Parkinson's side effects than the neuroleptics. I would avoid making this switch in the inpatient setting and would save this for outpatient. 4. Discontinue amantadine. 5. physical, occupational, and speech therapy consult. She may eventually benefit from an inpatient rehabilitation hospital stay as well I will follow this patient while she is in the hospital. Overall, I spent a total of 35 minutes with this case including review of records, direct evaluation of patient at bedside, and discussion of the case with the patient and RN at bedside, via telephone, and Dr. Wright including differential diagnosis and treatment options. Admission and Anticipated Discharge Date Admission Date: June 11, 2022 Subjective The patient is largely unresponsive this morning but can mumble a few words. She is willfully not answering questions at times. Blood pressure is 193/73. She has not gotten any Rytary medication since admission as it is not formulary. I spoke with the [employer] marketing representative yesterday, Ramon Aj ) who once the to bring in the handheld devices for the stimulator to see if the stimulator is working properly. Results & Data ([facility]) Vital Signs (Past 12 Hours) Vital Signs Temp Pulse Pulse Resp BP Pulse Ox O2 Del Method 06/13/22 07:41 36.6 C 79 20 193/73 H 99 Room Air 06/13/22 07:35 77 06/13/22 04:13 37.1 C 77 19 162/65 H 97 Room Air 06/13/22 00:36 82 06/12/22 23:50 Room Air 06/12/22 23:11 36.5 C 72 16 99/55 L 99 Room Air Exam (Neuro) Physical Exam: Patient is lying with her eyes closed and will not open them to command. When I try to open her eyes she resists. She is making eye contact with me after I open her eyes. There has been some right-sided tremor in the hand and foot at times. She is very rigid in general as before. PG Care Time/CCT Total # of Minutes Spent Total Time Spent with Patient: Total time spent is greater than 50% in coordination of care (as documented) at patient's floor/unit and/or counseling patient: Coding Level of Care Code 56778 Subseq Hosp Care Lvl 3 Diagnoses Parkinsons disease G20 Acute encephalopathy G93.40 Cogwheel rigidity R29.898 Resting tremor G25.2 Bradykinesia R25.8 Numbness and tingling of left arm and leg R20.0; R20.2 HTN (hypertension) I10 AMS (altered mental status) R40.0 Altered mental status type: somnolence Time Spent (min) 35 (1) AMS (altered mental status) Altered mental status type: somnolence Qualified Code(s): R40.0 - Somnolence
--- NOTE | 2022-06-13 11:09 | Hospitalist Progress Note ---
Date of Service June 13, 2022 Assessment & Plan (1) Acute encephalopathy: Plan: - decreased interactiveness, bradykinesia, cogwheel rigidity - appears to be worsening of Parkinsonism due to unknown etiology - could be that DBS inactivated for some reason vs CVA vs infectious - infectious seems unlikely - working with neurology to try to activate DBS - will also try for MRI if DBS compatible - neurology following (2) Parkinsons disease: Plan: - see above - increase Rytary to 2tabs TID per neurology - discontinue amantadine per neurology - DBS interrogation as above - follows with [facility] neurology movement disorders - follow up on discharge - PT/OT (3) HTN (hypertension): Plan: - not on BP meds at home - has history of orthostatic hypotension likely due to parkinsons - started on low dose Procardia XL 30mg for now - monitor Plan DVT ppx: lovenox Code Status: Full Code Dispo: telemetry Efren Wright MD [facility] Medicine Admission and Anticipated Discharge Date Admission Date: June 11, 2022 Subjective Patient with HLD, HFpEF, AI, TR, MR, Parkinson disease with orthostatic hypotension who presented with decresaed activity and responsiveness, thought to be worsening of her Parkinsons etiology unclear but could be intracerebral process like stroke vs malfunctioning of DBS. Neurology following and managing. The patient is very somnolent this morning, only groaning or barely opening eyes to stimuli. No events overnight. Review of Systems Review of Systems: Unobtainable due to reduced consciousness Physical Exam Constitutional: WD/WN, vitals as above + thin and + lethargic Eyes: PERRL, conjunctivae normal, anicteric sclerae ENMT: external ear and nose normal, oropharynx normal Neck: trachea midline, no thyromegaly Respiratory: normal respiratory effort, lungs clear to auscultation Cardiovascular: RRR, no murmur, no edema Gastrointestinal (Abdomen): normal bowel sounds, soft, nontender, no hepatosplenomegaly Musculoskeletal: withdrawals to physical stimuli. No edema Skin: no rashes, warm and dry Neurologic: + obtunded somnolent with only minimal response to verbal and physical stimuli. Results & Data Results & Data ([facility]) Vital Signs (Past 12 Hours) Vital Signs Temp Pulse Pulse Resp BP Pulse Ox O2 Del Method 06/13/22 07:41 36.6 C 79 20 193/73 H 99 Room Air 06/13/22 07:35 77 06/13/22 04:13 37.1 C 77 19 162/65 H 97 Room Air 06/13/22 00:36 82 06/12/22 23:50 Room Air 06/12/22 23:11 36.5 C 72 16 99/55 L 99 Room Air Laboratory Results reviewed Diagnostic Findings reviewed Medications Administered Current Inpatient Medications Acetaminophen (Acetaminophen 325 Mg Tab) 650 mg PO Q4H PRN PRN Reason: Pain or Fever Stop: 07/12/22 00:34 Artificial Tears (Artificial Tears) 1 drops OP [facility] Stop: 07/12/22 20:59 Last Admin: 06/12/22 20:12 Dose: 1 drops Docusate Sodium (Docusate Sodium 100 Mg Cap) 100 mg PO BID PRN PRN Reason: constipation Stop: 07/12/22 00:34 Furosemide (Furosemide 20 Mg Tab) 20 mg PO DAILY PRN PRN Reason: wt gain Stop: 07/12/22 00:34 Gabapentin (Gabapentin 400 Mg Cap) 400 mg PO [facility] Stop: 07/12/22 20:59 Last Admin: 06/12/22 20:11 Dose: 400 mg Labetalol HCl (Labetalol Hcl Iv 5 Mg/Ml 20ml) 10 mg IV Q4H PRN PRN Reason: Hypertension Stop: 07/12/22 00:34 Miscellaneous (Rytary 48.75-195 Mg - Order Awaiting Action) 1 each N/A QS [facility] Stop: 07/12/22 07:59 Last Admin: 06/13/22 09:18 Dose: Not Given Nifedipine (Nifedipine Extended Rel 30 Mg Tabcr) 30 mg PO QAM [facility] Stop: 07/13/22 09:14 Last Admin: 06/13/22 10:35 Dose: Not Given Nitroglycerin (Nitroglycerin Sl 0.4 Mg/Tab Tab) 0.4 mg SL UD PRN PRN Reason: Chest Pain Stop: 07/12/22 00:34 Non-Formulary Medication (Nonform) 2 tabs PO TID [facility] Stop: 07/13/22 13:59 Polyethylene Glycol (Polyethylene (Miralax) 17 Gm Pack) 17 gm PO DAILY PRN PRN Reason: Constipation Stop: 07/12/22 00:34 Quetiapine Fumarate (Quetiapine Fumarate 25 Mg Tablet) 50 mg PO HS [facility] Stop: 07/12/22 20:59 Last Admin: 06/12/22 20:11 Dose: 50 mg Simvastatin (Simvastatin 20 Mg Tab) 20 mg PO [facility] Stop: 07/12/22 20:59 Last Admin: 06/12/22 20:11 Dose: 20 mg
[2022-06-13] MEDS: CARBIDOPA/LEVODOPA 1 EACH CAPSULE.ER PO SCH ×2 (15:25→20:57)
[2022-06-13] MEDS: GABAPENTIN 400 MG CAP PO SCH (20:56)
[2022-06-13] MEDS: QUEtiapine FUMARATE 25 MG TABLET PO SCH (20:56)
[2022-06-13] MEDS: SIMVASTATIN 20 MG TAB PO SCH (20:58)
[2022-06-13] MEDS: LABETALOL HCL IV 5 MG/ML 20ML IV PRN ×2 (21:05→21:32)
[2022-06-13] MEDS: ARTIFICIAL TEARS OP SCH (21:05)
[2022-06-13] MEDS ORDERED: SODIUM CHLORIDE 0.9% 500 ML IV SCH (23:15)
[2022-06-14 08:09] LABS: Creatinine Clr Calc Pharmacy 43.7 ml/min; Est GFR (African American) 85.9 ml/min; Est GFR (Non-African American) 74.1 ml/min
[2022-06-14] MEDS: ENOXAPARIN INJ 30 MG/0.3 ML SYR SQ SCH (08:17)
[2022-06-14] MEDS: CARBIDOPA/LEVODOPA 1 EACH CAPSULE.ER PO SCH ×3 (08:17→20:43)
[2022-06-14] MEDS: NIFEdipine EXTENDED REL 30 MG TABCR PO SCH (08:18)
--- NOTE | 2022-06-14 12:59 | Hospitalist Progress Note ---
Date of Service June 14, 2022 Assessment & Plan (1) Acute encephalopathy: Plan: - decreased interactiveness, bradykinesia, cogwheel rigidity - appears to be worsening of Parkinsonism due to unknown etiology - could be that DBS inactivated for some reason vs CVA vs infectious - infectious seems unlikely - working with neurology to try to activate DBS - evaluated with [employer] rep and DBS is on and working per their assessment - MRI not feasible given parameters that need to be met by DBS - neurology following - requested transfer to [facility] for further neurologic evaluation and intervention - accepted pending a bed (2) Parkinsons disease: Plan: - see above - increase Rytary to 2tabs TID per neurology - discontinue amantadine per neurology - DBS interrogation as above - follows with [place] neurology movement disorders - follow up on discharge - PT/OT - see above for further plan (3) HTN (hypertension): Plan: - not on BP meds at home - has history of orthostatic hypotension likely due to parkinsons - started on low dose Procardia XL 30mg for now - monitor Plan DVT ppx: lovenox Code Status: Full Code Dispo: telemetry Efren Wright MD Hospital Medicine Admission and Anticipated Discharge Date Admission Date: June 11, 2022 Subjective Patient with HLD, HFpEF, AI, TR, MR, Parkinson disease with orthostatic hypotension who presented with decresaed activity and responsiveness, thought to be worsening of her Parkinsons etiology unclear but could be intracerebral process like stroke vs malfunctioning of DBS. Neurology following and managing. Transfer to [facility] for further neurologic evaluation accepted by Dr. Colindres, [place] neurology, pending bed. The patient is somnolent this morning, but with improvement since yesterday, more talkative. Knows she is having trouble taking her medications and that she if very slow. She denies chest pain, n/v/d, abdominal pain. No events overnight. Review of Systems Review of Systems: All systems reviewed & are unremarkable except as noted in Subjective Physical Exam Constitutional: WD/WN, vitals as above + thin and + lethargic Eyes: PERRL, conjunctivae normal, anicteric sclerae ENMT: external ear and nose normal, oropharynx normal Neck: trachea midline, no thyromegaly Respiratory: normal respiratory effort, lungs clear to auscultation Cardiovascular: RRR, no murmur, no edema Gastrointestinal (Abdomen): normal bowel sounds, soft, nontender, no hepatosplenomegaly Skin: no rashes, warm and dry Neurologic: awake still locked up, slow, rigid but more talkative. Results & Data Results & Data ([facility]) Vital Signs (Past 12 Hours) Vital Signs Temp Pulse Pulse Resp BP Pulse Ox O2 Del Method 06/14/22 12:00 36.5 C 76 16 120/62 93 Room Air 06/14/22 08:00 Room Air 06/14/22 08:00 36.5 C 75 14 146/74 H 97 Room Air 06/14/22 07:28 74 06/14/22 03:31 36.6 C 71 16 114/64 96 Room Air 06/14/22 01:16 36.7 C 73 18 112/70 97 Room Air 06/14/22 01:00 70 Laboratory Results [facility] 06/14/22 07:08 Creatinine 0.76 Diagnostic Findings reviewed Medications Administered Current Inpatient Medications Acetaminophen (Acetaminophen 325 Mg Tab) 650 mg PO Q4H PRN PRN Reason: Pain or Fever Stop: 07/12/22 00:34 Artificial Tears (Artificial Tears) 1 drops OP HS [facility] Stop: 07/12/22 20:59 Last Admin: 06/13/22 21:05 Dose: 1 drops Carbidopa/Levodopa (Carbidopa/Levodopa 1 Each Capsule.Er) 2 each PO TID [facility] Stop: 07/13/22 13:59 Last Admin: 06/14/22 08:17 Dose: 2 each Docusate Sodium (Docusate Sodium 100 Mg Cap) 100 mg PO BID PRN PRN Reason: constipation Stop: 07/12/22 00:34 Enoxaparin Sodium (Enoxaparin Inj 30 Mg/0.3 Ml Syr) 30 mg SQ QAM [facility] Stop: 07/14/22 08:59 Last Admin: 06/14/22 08:17 Dose: 30 mg Furosemide (Furosemide 20 Mg Tab) 20 mg PO DAILY PRN PRN Reason: wt gain Stop: 07/12/22 00:34 Gabapentin (Gabapentin 400 Mg Cap) 400 mg PO HS [facility] Stop: 07/12/22 20:59 Last Admin: 06/13/22 20:56 Dose: 400 mg Labetalol HCl (Labetalol Hcl Iv 5 Mg/Ml 20ml) 10 mg IV Q4H PRN PRN Reason: Hypertension Stop: 07/12/22 00:34 Last Admin: 06/13/22 21:32 Dose: 10 mg Nifedipine (Nifedipine Extended Rel 30 Mg Tabcr) 30 mg PO QAM [facility] Stop: 07/13/22 09:14 Last Admin: 06/14/22 08:18 Dose: 30 mg Nitroglycerin (Nitroglycerin Sl 0.4 Mg/Tab Tab) 0.4 mg SL UD PRN PRN Reason: Chest Pain Stop: 07/12/22 00:34 Polyethylene Glycol (Polyethylene (Miralax) 17 Gm Pack) 17 gm PO DAILY PRN PRN Reason: Constipation Stop: 07/12/22 00:34 Quetiapine Fumarate (Quetiapine Fumarate 25 Mg Tablet) 50 mg PO HS [facility] Stop: 07/12/22 20:59 Last Admin: 06/13/22 20:56 Dose: 50 mg Simvastatin (Simvastatin 20 Mg Tab) 20 mg PO HS [facility] Stop: 07/12/22 20:59 Last Admin: 06/13/22 20:58 Dose: 20 mg
[2022-06-14] MEDS: SIMVASTATIN 20 MG TAB PO SCH (20:43)
[2022-06-14] MEDS: QUEtiapine FUMARATE 25 MG TABLET PO SCH (20:43)
[2022-06-14] MEDS: GABAPENTIN 400 MG CAP PO SCH (20:43)
[2022-06-14] MEDS: ARTIFICIAL TEARS OP SCH (20:44)
[2022-06-15] MEDS: LACTATED RINGER'S 1,000 ML IV SCH ×2 (08:15→20:47)
[2022-06-15] MEDS: CARBIDOPA/LEVODOPA 1 EACH CAPSULE.ER PO SCH ×3 (10:22→20:44)
[2022-06-15] MEDS: AMANTADINE HCL 100 MG CAPSULE PO SCH (10:23)
[2022-06-15] MEDS: ENOXAPARIN INJ 30 MG/0.3 ML SYR SQ SCH (10:24)
[2022-06-15] MEDS: NIFEdipine EXTENDED REL 30 MG TABCR PO SCH (10:30)
--- NOTE | 2022-06-15 11:09 | Hospitalist Progress Note ---
Date of Service June 15, 2022 Assessment & Plan (1) Acute encephalopathy: Plan: - decreased interactiveness, bradykinesia, cogwheel rigidity - appears to be worsening of Parkinsonism due to unknown etiology - could be that DBS inactivated for some reason vs CVA vs infectious - infectious seems unlikely - working with neurology to try to activate DBS - evaluated with [employer] rep and DBS is on and working per their assessment - MRI not feasible given parameters that need to be met by DBS - neurology following - requested transfer to [facility] for further neurologic evaluation and intervention - accepted pending a bed (2) Parkinsons disease: Plan: - see above - increase Rytary to 2tabs TID per neurology - discontinue amantadine per neurology - DBS interrogation as above - follows with [place] neurology movement disorders - follow up on discharge - PT/OT - see above for further plan (3) HTN (hypertension): Plan: - not on BP meds at home - has history of orthostatic hypotension likely due to parkinsons - started on low dose Procardia XL 30mg for now if tolerating PO - IV prns BP medications ordered - monitor Plan DVT ppx: lovenox Code Status: Full Code Dispo: telemetry Efren Wright MD Hospital Medicine Admission and Anticipated Discharge Date Admission Date: June 11, 2022 Subjective Patient with HLD, HFpEF, AI, TR, MR, Parkinson disease with orthostatic hypotension who presented with decresaed activity and responsiveness, thought to be worsening of her Parkinsons etiology unclear but could be intracerebral process like stroke vs malfunctioning of DBS. Neurology following and managing. Transfer to [facility] for further neurologic evaluation accepted by Dr. Colindres, [place] neurology, pending bed. The patient is somnolent this morning, but simlar to previous day, more talkative. Knows she is having trouble taking her medications and that she is very slow. She denies chest pain, n/v/d, abdominal pain. No events overnight. Review of Systems Review of Systems: All systems reviewed & are unremarkable except as noted in Subjective Physical Exam Constitutional: WD/WN, vitals as above + thin and + lethargic Eyes: PERRL, conjunctivae normal, anicteric sclerae ENMT: external ear and nose normal, oropharynx normal Neck: trachea midline, no thyromegaly Respiratory: normal respiratory effort, lungs clear to auscultation Cardiovascular: RRR, no murmur, no edema Gastrointestinal (Abdomen): normal bowel sounds, soft, nontender, no hepatosplenomegaly Skin: no rashes, warm and dry Neurologic: awake and + obtunded Results & Data Results & Data ([facility]) Vital Signs (Past 12 Hours) Vital Signs Temp Pulse Pulse Resp BP Pulse Ox O2 Del Method 06/15/22 06:06 91 H 06/15/22 07:41 Room Air 06/15/22 08:14 37.0 C 89 16 143/55 H 93 Room Air 06/15/22 03:55 36.7 C 92 H 18 154/62 H 93 Room Air Laboratory Results reviewed Diagnostic Findings reviewed Medications Administered Current Inpatient Medications Acetaminophen (Acetaminophen 325 Mg Tab) 650 mg PO Q4H PRN PRN Reason: Pain or Fever Stop: 07/12/22 00:34 Amantadine HCl (Amantadine Hcl 100 Mg Capsule) 100 mg PO QAM [facility] Stop: 07/15/22 08:59 Last Admin: 06/15/22 10:23 Dose: 100 mg Artificial Tears (Artificial Tears) 1 drops OP [facility] Stop: 07/12/22 20:59 Last Admin: 06/14/22 20:44 Dose: 1 drops Carbidopa/Levodopa (Carbidopa/Levodopa 1 Each Capsule.Er) 2 each PO TID [facility] Stop: 07/13/22 13:59 Last Admin: 06/15/22 10:22 Dose: 2 each Docusate Sodium (Docusate Sodium 100 Mg Cap) 100 mg PO BID PRN PRN Reason: constipation Stop: 07/12/22 00:34 Enoxaparin Sodium (Enoxaparin Inj 30 Mg/0.3 Ml Syr) 30 mg SQ QAM [facility] Stop: 07/14/22 08:59 Last Admin: 06/15/22 10:24 Dose: 30 mg Furosemide (Furosemide 20 Mg Tab) 20 mg PO DAILY PRN PRN Reason: wt gain Stop: 07/12/22 00:34 Gabapentin (Gabapentin 400 Mg Cap) 400 mg PO HS [facility] Stop: 07/12/22 20:59 Last Admin: 06/14/22 20:43 Dose: Not Given Lactated Ringer's (Lr) 1,000 mls @ 80 mls/hr IV .[id number] [facility] Stop: 06/16/22 07:29 Last Admin: 06/15/22 08:15 Dose: 80 mls/hr Labetalol HCl (Labetalol Hcl Iv 5 Mg/Ml 20ml) 10 mg IV Q4H PRN PRN Reason: Hypertension Stop: 07/12/22 00:34 Last Admin: 06/13/22 21:32 Dose: 10 mg Nifedipine (Nifedipine Extended Rel 30 Mg Tabcr) [facility] Stop: 07/13/22 09:14 Last Admin: 06/15/22 10:30 Dose: Not Given Nitroglycerin (Nitroglycerin Sl 0.4 Mg/Tab Tab) 0.4 mg SL UD PRN PRN Reason: Chest Pain Stop: 07/12/22 00:34 Polyethylene Glycol (Polyethylene (Miralax) 17 Gm Pack) 17 gm PO DAILY PRN PRN Reason: Constipation Stop: 07/12/22 00:34 Quetiapine Fumarate (Quetiapine Fumarate 25 Mg Tablet) 50 mg PO [facility] Stop: 07/12/22 20:59 Last Admin: 06/14/22 20:43 Dose: Not Given Simvastatin (Simvastatin 20 Mg Tab) 20 mg PO [facility] Stop: 07/12/22 20:59 Last Admin: 06/14/22 20:43 Dose: Not Given
[2022-06-15] MEDS: QUEtiapine FUMARATE 25 MG TABLET PO SCH (20:44)
[2022-06-15] MEDS: GABAPENTIN 400 MG CAP PO SCH (20:44)
[2022-06-15] MEDS: SIMVASTATIN 20 MG TAB PO SCH (20:45)
[2022-06-15] MEDS: ARTIFICIAL TEARS OP SCH (20:49)
[2022-06-16 06:23] LABS: Hematocrit (blood only) 32.8 % (34.1-44.9); Hemoglobin 10.6 g/dl (12.0-16.0); Mean Corpuscular Hemoglobin 30.1 pg (25.0-34.0); Mean Corpuscular Hgb Conc 32.3 g/dL (32.0-36.0); Mean Corpuscular Volume 93.2 fL (80.0-100.0); Mean Platelet Volume 9.9 fL (9.4-12.3); Platelet Count 233 K/uL (130-400); RDW Coefficient of Variation 13.6 % (11.5-14.5); Red Blood Count 3.52 M/uL (3.93-5.22); White Blood Count 7.65 K/ul (4.8-10.8)
[2022-06-16 06:54] LABS: Basophils # (auto) 0.01 K/uL (0-0.2); Basophils % (auto) 0.1 %; Immature Granulocytes # (auto) 0.01 K/uL (0.00-0.02); Immature Granulocytes % (auto) 0.1 %; Lymphocytes # (auto) 0.64 K/uL (1.2-3.4); Lymphocytes % (auto) 8.4 %; Monocytes # (auto) 0.56 K/uL (0.24-0.82); Monocytes % (auto) 7.3 %; Neutrophils # (auto) 6.43 K/uL (1.4-6.5); Neutrophils % (auto) 84.1 %
[2022-06-16] MEDS ORDERED: ACETAMINOPHEN 650 MG SUPP PR STA (07:42)
[2022-06-16] MEDS: NIFEdipine EXTENDED REL 30 MG TABCR PO SCH (07:51)
[2022-06-16] MEDS: AMANTADINE HCL 100 MG CAPSULE PO SCH (07:51)
[2022-06-16] MEDS: CARBIDOPA/LEVODOPA 1 EACH CAPSULE.ER PO SCH ×3 (07:51→19:28)
[2022-06-16] MEDS: ENOXAPARIN INJ 30 MG/0.3 ML SYR SQ SCH (08:00)
--- NOTE | 2022-06-16 12:43 | Electrocardiogram Report ---
Test Reason : Blood Pressure : / mmHG Vent. Rate : 089 BPM Atrial Rate : 089 BPM P-R Int : 132 ms QRS Dur : 086 ms QT Int : 364 ms P-R-T Axes : 071 000 -61 degrees QTc Int : 442 ms Normal sinus rhythm Possible Left atrial enlargement Nonspecific ST and T wave abnormality Abnormal ECG When compared with ECG of 11-JUN-2022 17:59, Inverted T waves have replaced nonspecific T wave abnormality in Inferior leads Nonspecific T wave abnormality now evident in Lateral leads Confirmed by Hardik Olguin ([id number]) on 06/16/2022 12:42:23 PM Referred By: REFERRED SELF Confirmed By:Hardik Olguin
--- NOTE | 2022-06-16 18:12 | Hospitalist Progress Note ---
Date of Service June 16, 2022 Assessment & Plan (1) Acute encephalopathy: Plan (1) Acute encephalopathy: Plan: - decreased interactiveness, bradykinesia, cogwheel rigidity - appears to be worsening of Parkinsonism due to unknown etiology - could be that DBS inactivated for some reason vs CVA vs infectious - infectious seems unlikely - Neuro evaluated - evaluated with [employer] rep and DBS is on and working per their assessment - MRI not feasible given parameters that need to be met by DBS - neurology following - requested transfer to [facility] for further neurologic evaluation and intervention - accepted pending a bed (2) Parkinsons disease: Plan: - see above, pt has advanced/end-stage parkinson's dz. - increase Rytary to 2tabs TID per neurology - discontinue amantadine per neurology - DBS interrogation as above - follows with [place] neurology movement disorders - follow up on discharge - PT/OT - see above for further plan #. Likely aspiration pneumonia: Patient had temperature of 30 8.5C today a.m., patient reported to be aspirating on p.o. meds per RN. Procalcitonin elevated 06/16, will get CXR, started Unasyn 06/16. Speech has evaluated, recommends n.p.o. status. Consider bedside swallow screen for p.o. meds when patient more awake, consider IV fluid if patient continues to be n.p.o. (3) HTN (hypertension): Plan: - not on BP meds at home - has history of orthostatic hypotension likely due to parkinsons - started on low dose Procardia XL 30mg for now if tolerating PO - IV prns BP medications ordered - monitor Plan DVT ppx: lovenox Code Status: Full Code Dispo: telemetry, pending transfer to [facility]. Poor prognosis. Admission and Anticipated Discharge Date Admission Date: June 11, 2022 Subjective Patient with HLD, HFpEF, AI, TR, MR, Parkinson disease with orthostatic hypo tension who presented 06/12 with decreased activity and responsiveness, thought to be worsening of her Parkinsons etiology unclear but could be intracerebral process like stroke vs malfunctioning of DBS. Neurology following and managing. Transfer to [facility] for further neurologic evaluation accepted by Dr. Colindres, [place] neurology, pending bed. The patient is somnolent and drowsy this morning, but w/ spontaneous eye opening during the day per RN note, had fever in AM, concern for aspiration PNA, will start unasyn. ROS was n/a due to cognition status. Pt's dtr at bedside, updated her/answered her queries. Physical Exam Physical Exam: GENERAL: Drowsy, somnolent, 2L O2 via Oxymask. HEENT: No pallor, no icterus. Pupils equal, round and reactive to light. Oral mucosa moist. NECK: No JVD, no neck masses. HEART: S1 and S2 heard. Regular rate and rhythm. No murmur, no gallop. RESPIRATORY SYSTEM: Normal AP diameter. No accessory muscle use. No wheezing, + crackles. ABDOMEN: Soft, bowel sounds present, nontender, no distention. CENTRAL NERVOUS SYSTEM: No facial droop. Rest n/a. EXTREMITIES: No edema, no erythema seen. Results & Data Results & Data ([facility]) Vital Signs (Past 12 Hours) Vital Signs Temp Pulse Pulse Resp BP Pulse Ox O2 Del Method 06/16/22 17:58 37.1 C 06/16/22 15:28 86 06/16/22 12:09 37.4 C 84 16 156/66 H 98 Oxymask 06/16/22 09:53 37.3 C 06/16/22 07:52 Oxymask 06/16/22 07:49 38.5 C H 92 H 16 172/62 H 94 Oxymask 06/16/22 07:10 90 O2 Flow Rate 06/16/22 17:58 06/16/22 15:28 06/16/22 12:09 2 06/16/22 09:53 06/16/22 07:52 2 06/16/22 07:49 2 06/16/22 07:10
[2022-06-16] MEDS: AMPICILLIN/SULBACTAM SOD 3,000 MG in 0.9 % SODIUM CHLORIDE 100 ML IV SCH (18:18)
[2022-06-16] MEDS: QUEtiapine FUMARATE 25 MG TABLET PO SCH (19:28)
[2022-06-16] MEDS: GABAPENTIN 400 MG CAP PO SCH (19:28)
[2022-06-16] MEDS: SIMVASTATIN 20 MG TAB PO SCH (19:28)
[2022-06-16] MEDS: LABETALOL HCL IV 5 MG/ML 20ML IV PRN (20:21)
[2022-06-16] MEDS: ARTIFICIAL TEARS OP SCH (20:21)
--- NOTE | 2022-06-16 21:00 | XRay Report ---
SINGLE VIEW CHEST CLINICAL HISTORY: Aspiration pneumonia. FINDINGS: An AP, portable, upright chest radiograph is compared to study dated 06/11/2022. An electron ic device partially obscures the left mid chest. Leads extend into the neck. The cardiomediastinal si lhouette is unremarkable. There is airspace consolidation of the left lung base with small left pleur al effusion. The right lung appears clear. No pneumothorax is seen. The skeletal structures are osteo penic. The bony thorax is grossly intact. IMPRESSION: There is left basilar consolidation with a small left pleural effusion. The appearance is typical for pneumonia/aspiration pneumonitis. Clinical correlation will be required and radiographic follow-up to resolution is recommended. ACT 112: Negative or not required by law. Electronically signed by: Eddie Katz M.D. 06/16/2022 8:59 PM
[2022-06-16] MEDS ORDERED: KETOROLAC TROMETHAMINE 15 MG/ML VIAL IV ONE (21:21)
[2022-06-17] MEDS: AMPICILLIN/SULBACTAM SOD 3,000 MG in 0.9 % SODIUM CHLORIDE 100 ML IV SCH ×2 (00:18→05:09)
[2022-06-17] MEDS ORDERED: LABETALOL HCL IV 5 MG/ML 20ML IV STA (00:33)
[2022-06-17 06:13] LABS: Hemoglobin 10.3 g/dl (12.0-16.0); Mean Corpuscular Hemoglobin 30.2 pg (25.0-34.0); Mean Corpuscular Hgb Conc 32.2 g/dL (32.0-36.0); Mean Corpuscular Volume 93.8 fL (80.0-100.0); Mean Platelet Volume 10.2 fL (9.4-12.3); Platelet Count 244 K/uL (130-400); RDW Coefficient of Variation 13.6 % (11.5-14.5); RDW Standard Deviation 46.3 fL (36.4-46.3); Red Blood Count 3.41 M/uL (3.93-5.22); White Blood Count 6.24 K/ul (4.8-10.8)
[2022-06-17 06:24] LABS: Partial Thromboplastin Ratio 1.1; Partial Thromboplastin Time 30.6 Seconds (21.0-31.0)
[2022-06-17 06:30] LABS: BUN Creatinine Ratio 44.7 (10-20); Calcium 8.9 mg/dl (8.5-10.1); Creatinine Clr Calc Pharmacy 45.9 ml/min; Est GFR (African American) 85.9 ml/min; Est GFR (Non-African American) 74.1 ml/min; Magnesium 2.2 mg/dl (1.7-2.4); Phosphorus 3.2 mg/dl (2.5-4.9); Potassium 3.9 mmol/L (3.5-5.1)
[2022-06-17] MEDS: ENOXAPARIN INJ 30 MG/0.3 ML SYR SQ SCH (07:56)
[2022-06-17] MEDS ORDERED: D5W AND 1/2NSS 1,000 ML IV SCH (08:00)
[2022-06-17] MEDS: CARBIDOPA/LEVODOPA 1 EACH CAPSULE.ER PO SCH (08:01)
[2022-06-17] MEDS: NIFEdipine EXTENDED REL 30 MG TABCR PO SCH (08:02)
[2022-06-17] MEDS ORDERED: SODIUM CHLORIDE 0.45 % 1,000 ML IV SCH (08:15)
--- NOTE | 2022-06-17 08:21 | Discharge Summary ---
Date of Service June 17, 2022 Admission HPI Per Admitting Provider CHIEF COMPLAINT: Weakness. HISTORY OF PRESENT ILLNESS: This is an 81-year-old female with past medical history significant for hyperlipidemia, prediabetes, chronic diastolic CHF due to valvular heart disease, nonrheumatic aortic valve insufficiency, tricuspid valve regurgitation, mitral regurgitation, orthostatic hypotension, pulmonary hypertension, hypertension, history of kidney stones on the left side, history of chronic kidney disease stage III, restless legs syndrome, Parkinson's disease, sicca syndrome, positive ZARA antibody, who lives at home with her , was brought in because of weakness. The patient's says the patient's Parkinson symptoms getting worse for the last 2 days. She has speech problems, but now speaking in very low voice hard to understand, she is not even moving from the bed, not eating much.. So she was brought to the hospital. The patient is currently lethargic, not opening eyes, could tell her name and only answering no to all the questions, not able to obey any commands. Her imaging studies are unremarkable. The patient has DBS in the anterior chest. She was here in March with frequent falls. At that time her EEG was unremarkable. She was seen by neurology.Today in ER her blood pressure is running high, received labetalol in the ER. As per the , there is no fever, no cough, no nausea, no vomiting, no blood in stools or black stools. Micturating okay. He thinks she is not able to express but thinks she has some upper back pain,.Could not give much history. ALLERGIES: No known drug allergies. PAST MEDICAL HISTORY: As mentioned above. PAST SURGICAL HISTORY: Cardiac catheterization, colonoscopy, colonoscopy with biopsy, right elbow tendon repair, laparoscopic surgical lysis of adhesions, partial hysterectomy, bilateral cataract surgery. MEDICATIONS: The patient is on amantadine 100 mg p.o. b.i.d., Colace 100 mg p.o. b.i.d. p.r.n., Lasix 20 mg p.o. daily p.r.n., gabapentin 400 mg p.o. at bedtime, MiraLax 17 grams p.o. daily p.r.n., Seroquel 50 mg p.o. at bedtime, Rytary 2 tablets a.m., 1 capsule in the afternoon, 1 capsule in the evening, 5 hours apart, simvastatin 20 mg p.o. at bedtime. FAMILY HISTORY: Significant for mother has rheumatoid arthritis, AL. Father has AL. Brother has AL. Sister has melanoma. Brother has melanoma. SOCIAL HISTORY: , no smoking, no alcohol, no drug use. REVIEW OF SYSTEMS: Unobtainable at this time. Admission Exam Per Admitting Provider GENERAL: The patient is old and frail, seems somewhat lethargic. VITAL SIGNS: Temperature 36.5, pulse 67, respiratory rate 16, blood pressure 167/91, oxygen 98% on room air. HEENT: Pupils equal, round and reactive to light. Oral mucosa dry. NECK: No JVD or neck masses. CARDIOVASCULAR: S1 and S2 heard, regular rate and rhythm. No murmur, no gallop. RESPIRATORY SYSTEM: Normal AP diameter. No accessory muscle use. No wheezing or crackles. ABDOMEN: Soft, bowel sounds present, nontender, no distention. CENTRAL NERVOUS SYSTEM: Oriented to name only, does not obey commands. Speech is very low. EXTREMITIES: No edema, no erythema. Principal Diagnosis Acute encephalopathy likely secondary to worsening Parkinson's disease Likely aspiration pneumonia Discharge Exam GENERAL: Drowsy, somnolent, 2L O2 via Oxymask. HEENT: No pallor, no icterus. Pupils equal, round and reactive to light. Oral mucosa dry. NECK: No JVD, no neck masses. HEART: S1 and S2 heard. Regular rate and rhythm. No murmur, no gallop. RESPIRATORY SYSTEM: Normal AP diameter. No accessory muscle use. No wheezing, no crackles. ABDOMEN: Soft, bowel sounds present, nontender, no distention. CENTRAL NERVOUS SYSTEM: No facial droop. Rest n/a. EXTREMITIES: No edema, no erythema seen. Discharge Data Allergies Allergy/AdvReac Type Severity Reaction Status Date / Time No Known Allergies Allergy Verified 04/14/22 21:30 Consultations 06/11/22 20:27 ED Decision to Admit Stat 06/12/22 08:00 Consult Neurology Routine 06/14/22 15:57 Burn CD for patient Routine Ordered Studies 06/11/22 18:00 CT angio head w con Stat CT angio neck with con Stat CT head/brain wo con Stat Hospital Course (1) Acute encephalopathy: Plan 81-year-old lady was managed for the following while in hospital: (1) Acute encephalopathy: Plan: - decreased interactiveness, bradykinesia, cogwheel rigidity - appears to be worsening of Parkinsonism due to unknown etiology - could be that DBS inactivated for some reason vs CVA vs infectious - infectious seems unlikely - Neuro evaluated - evaluated with [employer] rep and DBS is on and working per their assessment - MRI not feasible given parameters that need to be met by DBS - neurology following - requested transfer to [facility] for further neurologic evaluation and intervention -being transported today. (2) Parkinsons disease: Plan: - see above, pt has advanced/end-stage parkinson's dz. - increase Rytary to 2tabs TID per neurology - discontinue amantadine per neurology - DBS interrogation as above - follows with [facility]y movement disorders - follow up on discharge - PT/OT - see above for further plan #. Likely aspiration pneumonia: Patient had temperature of 38.5C 06/16 a.m., patient reported to be aspirating on p.o. meds per RN. Procalcitonin elevated 06/16, CXR with left basilar consolidation suggestive of pneumonia versus aspiration pneumonitis, started Unasyn 06/16. Speech has evaluated, recommends n.p.o. status. Consider bedside swallow screen for p.o. meds when patient more awake, IV fluid at gentle rate. (3) HTN (hypertension): Plan: - not on BP meds at home - has history of orthostatic hypotension likely due to parkinsons - started on low dose Procardia XL 30mg for now if tolerating PO - IV prns BP medications ordered - monitor Plan DVT ppx: lovenox Code Status: Full Code Dispo: telemetry, pending transfer to [facility]. Poor prognosis. Patient got bed assignment at [facility] and is being transported/discharged to [facility]. Total Time Total Time Spent Total Time Spent (In Minutes): 35 Discharge Plan Discharge Items Patient Disposition: Transfer Acute Care Hospital Reason For Visit: WEAKNESS Discharge Diagnosis: parkinsons diease Likely aspiration pneumonia Likely dehydration Health Concerns: Current Inpatient Medications Acetaminophen (Acetaminophen 325 Mg Tab) 650 mg PO Q4H PRN PRN Reason: Pain or Fever Stop: 07/12/22 00:34 Artificial Tears (Artificial Tears) 1 drops OP HS DONATO Stop: 07/12/22 20:59 Last Admin: 06/16/22 20:21 Dose: 1 drops Carbidopa/Levodopa (Carbidopa/Levodopa 1 Each Capsule.Er) 2 each PO TID DONATO Stop: 07/13/22 13:59 Last Admin: 06/17/22 08:01 Dose: Not Given Docusate Sodium (Docusate Sodium 100 Mg Cap) 100 mg PO BID PRN PRN Reason: constipation Stop: 07/12/22 00:34 Enoxaparin Sodium (Enoxaparin Inj 30 Mg/0.3 Ml Syr) 30 mg SQ QAM DONATO Stop: 07/14/22 08:59 Last Admin: 06/17/22 07:56 Dose: 30 mg Furosemide (Furosemide 20 Mg Tab) 20 mg PO DAILY PRN PRN Reason: wt gain Stop: 07/12/22 00:34 Gabapentin (Gabapentin 400 Mg Cap) 400 mg PO [facility] Stop: 07/12/22 20:59 Last Admin: 06/16/22 19:28 Dose: Not Given Ampicillin Sodium/Sulbactam Sodium 3,000 mg/ Sodium Chloride 108 mls @ 200 mls/hr IV Q6H DONATO; Protocol Stop: 06/23/22 17:59 Last Infusion: 06/17/22 05:55 Dose: Infused Sodium Chloride (1/2 Nss) 1,000 mls @ 500 mls/hr IV .Q2H DONATO Stop: 06/17/22 08:44 Labetalol HCl (Labetalol Hcl Iv 5 Mg/Ml 20ml) 10 mg IV Q4H PRN PRN Reason: Hypertension Stop: 07/12/22 00:34 Last Admin: 06/16/22 20:21 Dose: 10 mg Nifedipine (Nifedipine Extended Rel 30 Mg Tabcr) 30 mg PO QAM DONATO Stop: 07/13/22 09:14 Last Admin: 06/17/22 08:02 Dose: Not Given Nitroglycerin (Nitroglycerin Sl 0.4 Mg/Tab Tab) 0.4 mg SL UD PRN PRN Reason: Chest Pain Stop: 07/12/22 00:34 Polyethylene Glycol (Polyethylene (Miralax) 17 Gm Pack) 17 gm PO DAILY PRN PRN Reason: Constipation Stop: 07/12/22 00:34 Quetiapine Fumarate (Quetiapine Fumarate 25 Mg Tablet) 50 mg PO HS COUNTS INCLUDE 234 BEDS AT THE [facility] Stop: 07/12/22 20:59 Last Admin: 06/16/22 19:28 Dose: Not Given Simvastatin (Simvastatin 20 Mg Tab) 20 mg PO HS DONATO Stop: 07/12/22 20:59 Last Admin: 06/16/22 19:28 Dose: Not Given Activity: As commented below Activity Comment: as per accepting facility Non-emergency contact: Primary Care Provider and Neurologist Call non-emergency contact if: you have any medication questions and your symptoms worsen Follow-up/Referrals: Jose Colindres MD [Primary Care Provider] - Diet: Heart Healthy Addtl Attending Provider Instructions: You were admitted with worsening of your parkinsons disease. Infection was ruled out and neurology was consulted. Medications were adjust to increase rytary 2tabs 3x/day. We checked to make sure your deep brain stimulator was working and turned on, which it was. We tried to pursue MRI of the brain to evaluate further but out MRI cannot be made compatible with your DBS. We reached out to neurology at [facility] and they accepted you for transfer for further evaluation with MRI and their movement specialists. Pending Studies at Discharge: No Stand-Alone Forms: My [facility] Skilled Items Patient informed of condition?: Yes DNR: No Discharge Level of Care: Other Communicable Disease: No Discharge Prognosis: Stable Lines: Peripheral IV Urinary Catheter: Yes Medications and DC Order Prescriptions: Continued amantadine HCl 100 mg capsule 100 mg PO BID Rx Instructions: take am & afternoon simvastatin 20 mg tablet 20 mg PO HS Rytary 48.75-195 mg capsule, extended release See Rx Instructions .ROUTE .COMPLEX Rx Instructions: TAKE 2 CAPS QAM, 1 CAP IN THE AFTERNOON, AND 1 CAP IN THE EVENING doses 5 hours apart furosemide 20 mg tablet 20 mg PO DAILY PRN (Reason: wt gain) Rx Instructions: or increased swelling, or increased shortness of breath carboxymethylcellulose sodium [Refresh Plus] 0.5 % Dropperette 1 drp OPHTHALMIC (EYE) HS quetiapine 25 mg tablet 50 mg PO HS Rx Instructions: per Dr. hanna docusate sodium 100 mg Capsule 100 mg PO BID PRN (Reason: constipation) Qty: 30 0RF polyethylene glycol 3350 [Miralax] 17 gram Powder In Packet 17 g PO DAILY PRN (Reason: constipation) Qty: 30 0RF gabapentin 400 mg 400 mg PO HS Discharge Orders: Discharge Order (Routine); Ordered 06/14/22 Ordered By: Efren Tomas/Other Patient Handouts: A1C Admission Data Admit Date/Time: 06/11/22 23:16 Attending Provider: Sanjuana Robb Admit Provider: Rei Clarke Primary Care Provider: Jose Colindres Other Providers: Rei Clarke ; Dante Naik ; Rafael Bowling ; Abena Tellez ; Lilia Sanford ; Eddi Antonio ; Lilia Molina ; Flynn Kumra ; Soheila Pemberton ; Faustino Joshi ; Ramila Dennis ; Liv Matta ; [facility]
== END 2022-06-17 08:55 | disposition short-term general hospital (02) | DRG 56 ==
LOC: ED 17:50 → EDINP 23:16 → SUATTDRO 23:16 → 2N 06-12 00:31